=== PATIENT | male | born 1965 | race Caucasian/White ===

== ENCOUNTER 2019-08-28 16:27 | Inpatient (IN) | payer OTHER ==
[~2019-08-28] VITALS: Ht 175.3 cm; Wt 50.8 kg
[2019-08-28 16:36] VITALS: BP 121/88
[2019-08-28] MEDS ORDERED: ACETAMINOPHEN 650 MG SUPP RC ONE (16:55)
[2019-08-28] MEDS ORDERED: NACL 0.9% 1,000 ML IV ONE (16:55)
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
--- NOTE | 2019-08-28 17:30 | NUR ---
Staff RNs at bedside to start PIV on BUE, unsuccessful after multiple attempts. Per Dr Pro, vikash to start PIV on BLE.
[2019-08-28 18:01] LABS: BASOPHILS % (AUTO) 0.4 % (0.0-2.0); EOSINOPHILS # (AUTO) 0.1 K/uL (0-0.4); EOSINOPHILS % (AUTO) 0.5 % (0.0-4.0); HEMATOCRIT 33.1 % (36-52); HEMOGLOBIN 10.3 g/dL (12.0-18.0); LYMPHOCYTES # (AUTO) 0.6 K/uL (2.0-11.5); LYMPHOCYTES % (AUTO) 5.5 % (20.5-51.1); MEAN CORPUSCULAR HEMOGLOBIN 22 pg (27-31); MEAN CORPUSCULAR HGB CONC 31 g/dL (33-37); MEAN CORPUSCULAR VOLUME 71.9 fL (80-94); MONOCYTES # (AUTO) 0.5 K/uL (0.8-1.0); MONOCYTES % (AUTO) 4.5 % (1.7-9.3); NEUTROPHILS # (AUTO) 10.3 K/uL (1.8-7.7); NEUTROPHILS % (AUTO) 89.1 % (42.2-75.2); PLATELET COUNT (AUTO) 582 K/uL (140-450); RED BLOOD CELL COUNT(AUTO) 4.61 MIL/uL (4.20-6.10); RED CELL DISTRIBUTION WIDTH 21.6 % (11.6-13.7); WHITE BLOOD COUNT (AUTO) 11.6 K/uL (4.8-10.8)
[2019-08-28 18:06] LABS: APPEARANCE,URINE CLEAR (CLEAR); BILIRUBIN,URINE NEGATIVE (NEGATIVE); BLOOD, URINE 1+ (NEGATIVE); COLOR,URINE YELLOW (YELLOW); LEUKOCYTE ESTERASE ,URINE 1+ (NEGATIVE); NITRITE, URINE POSITIVE (NEGATIVE); PH,URINE 6.5 (5.0-9.0); UGLUCOSE NEGATIVE (NEGATIVE)
[2019-08-28 18:10] LABS: PROTHROMBIN TIME 10.4 secs (10.8-13.4)
[2019-08-28 18:18] LABS: ALBUMIN 2.6 g/dL (3.4-5.0); ANION GAP 12.6 (8-16); CARBON DIOXIDE 29.8 mmol/L (21-32); CREATININE 0.6 mg/dL (0.6-1.3); POTASSIUM 4.4 mmol/L (3.5-5.1); TOTAL BILIRUBIN 0.1 mg/dL (0.0-1.0)
[2019-08-28] MEDS ORDERED: ACET-2619 PO (18:19)
[2019-08-28] MEDS ORDERED: COROS OP (18:19)
[2019-08-28] MEDS ORDERED: [UNRECOGNIZED DRUG - CODE] PO (18:19)
[2019-08-28] MEDS ORDERED: ZINC220C28 PO (18:19)
[2019-08-28] MEDS ORDERED: BISA-213 RC (18:19)
[2019-08-28] MEDS ORDERED: ASPI-1822 PO (18:19)
[2019-08-28] MEDS ORDERED: MAGN400S60 PO (18:19)
[2019-08-28] MEDS ORDERED: ASCO500T45 PO (18:19)
[2019-08-28] MEDS ORDERED: DOCU-299 PO (18:19)
[2019-08-28] MEDS ORDERED: MULT-153 PO (18:19)
[2019-08-28] MEDS ORDERED: FAMO-90 PO (18:19)
[2019-08-28] MEDS ORDERED: LEVE500T9 PO (18:19)
[2019-08-28] MEDS ORDERED: MODA200T46 PO (18:19)
[2019-08-28] MEDS ORDERED: HYDR-5122 PO (18:19)
[2019-08-28] MEDS ORDERED: LOV40I SUBQ (18:19)
[2019-08-28] MEDS ORDERED: PIPERACILLIN/TAZOBACTAM 3.375 GM in DEXTROSE 5% 50 ML IV ONE (18:35)
[2019-08-28] MEDS ORDERED: PIPERACILLIN/TAZOBACTAM 3.375 GM VIAL IV ONE (18:35)
[2019-08-28] MEDS ORDERED: BISACODYL 10 MG SUPP RC PRN (18:55)
[2019-08-28] MEDS ORDERED: ONDANSETRON 4 MG/2 ML VIAL IVP PRN (19:00)
[2019-08-28] MEDS ORDERED: ACETAMINOPHEN 325 MG TAB PO PRN (19:00)
[2019-08-28] MEDS ORDERED: MORPHINE SULFATE 4 MG/ML SYR IVP PRN (19:00)
[2019-08-28] MEDS ORDERED: HYDROcodone/APAP 5/325 MG 1 TAB TAB PO PRN (19:00)
[2019-08-28] MEDS ORDERED: ALBUTEROL 0.083% 2.5 MG/3 ML NEBU INH PRN (19:00)
--- NOTE | 2019-08-28 19:09 | NUR ---
Pt laying in bed, rr even and unlabored. VS noted. Temp 99.9. All needs met.
--- NOTE | 2019-08-28 19:34 | NUR ---
Patient will be admitted to care of DR DENT. Admited to TELE. Will go to room 115. Belongings list completed. Report to DEVORAH PARSON
[2019-08-28 20:45] VITALS: BP 110/60
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
[2019-08-28] MEDS: NACL 0.9% 1,000 ML IV SCH (21:00)
[2019-08-28] MEDS ORDERED: cefTRIAXone 1,000 MG VIAL ONE (21:15)
[2019-08-28] MEDS: OSELTAMIVIR PHOSPHATE 75 MG CAP PO SCH (21:49)
[2019-08-28] MEDS: FAMOTIDINE 20 MG TAB PO SCH (21:49)
--- NOTE | 2019-08-28 22:00 | NUR ---
MADE ROUNDS , NO SIGNS OF ACUTE DISTRESS NOTED AT THIS TIME , CALL LIGHT WITHIN REACH , BED ALARM ON , WILL CONT. TO MONITOR . AFEBRILE.
[2019-08-29] VITALS: BP 127/80
--- NOTE | 2019-08-29 | NUR ---
MADE REDDY . MICAH O , ON FIRE INVESTIGATION LIEUTENANT. NO SIGNS OF ACUTE DISTRESS NOTED AT THIS TIME . WILL CONT. TO MONITOR.
--- NOTE | 2019-08-29 02:00 | NUR ---
SLEEPING - RESP. RISE AND FALL EQUALLY - WILL CONT. TO MONITOR.
[2019-08-29 04:00] VITALS: BP 120/70
--- NOTE | 2019-08-29 04:00 | NUR ---
MADE ROUNDS . NO SIGNS OF ACUTE DISTRESS NOTED . V/S WNL . WILL CONT. TO MONITOR.
--- NOTE | 2019-08-29 06:00 | NUR ---
MADE ROUNDS . RESP. EVEN AND UNLABORED . WILL CONT. TO MONITOR.
[2019-08-29 07:01] LABS: BASOPHILS % (AUTO) 0.9 % (0.0-2.0); EOSINOPHILS # (AUTO) 0.1 K/uL (0-0.4); EOSINOPHILS % (AUTO) 1.4 % (0.0-4.0); HEMATOCRIT 32.9 % (36-52); HEMOGLOBIN 10.5 g/dL (12.0-18.0); LYMPHOCYTES # (AUTO) 0.7 K/uL (2.0-11.5); LYMPHOCYTES % (AUTO) 16.2 % (20.5-51.1); MEAN CORPUSCULAR HEMOGLOBIN 23 pg (27-31); MEAN CORPUSCULAR HGB CONC 32 g/dL (33-37); MEAN CORPUSCULAR VOLUME 71.9 fL (80-94); MONOCYTES # (AUTO) 0.2 K/uL (0.8-1.0); MONOCYTES % (AUTO) 5.1 % (1.7-9.3); NEUTROPHILS # (AUTO) 3.2 K/uL (1.8-7.7); NEUTROPHILS % (AUTO) 76.4 % (42.2-75.2); PLATELET COUNT (AUTO) 516 K/uL (140-450); RED BLOOD CELL COUNT(AUTO) 4.57 MIL/uL (4.20-6.10); RED CELL DISTRIBUTION WIDTH 21.5 % (11.6-13.7); WHITE BLOOD COUNT (AUTO) 4.2 K/uL (4.8-10.8)
[2019-08-29 07:08] LABS: ANION GAP 10.6 (8-16); CARBON DIOXIDE 28.9 mmol/L (21-32); CREATININE 0.6 mg/dL (0.6-1.3); POTASSIUM 4.5 mmol/L (3.5-5.1)
--- NOTE | 2019-08-29 07:15 | NUR ---
RECEIVED REPORT FROM AIR DUCT MECHANIC NURSE. PT IS SLEEPING, NO SIGNS OF DISTRESS. PT HAS IV AT LEFT FOOT 20G WITH NS RUNNING AT 75ML/HR. PT HAS LOPEZ. PT IS FOR WOUND AND FNS CONSULT. CALL LIGHT WITHIN PT'S REACH. WILL CONTINUE TO MONITOR
--- NOTE | 2019-08-29 07:15 | NUR ---
ENDORSED TO AM SHIFT W/ STABLE CONDITION.
[2019-08-29 07:25] LABS: MAGNESIUM 1.7 mg/dL (1.8-2.4); PHOSPHORUS 2.4 mg/dL (2.5-4.9)
[2019-08-29 08:00] VITALS: BP 137/86
[2019-08-29] MEDS ORDERED: levETIRAcetam 500 MG TAB PO ONE (09:00)
[2019-08-29] MEDS ORDERED: NEOMYCIN OP SCH (09:00)
[2019-08-29] MEDS ORDERED: [UNRECOGNIZED DRUG - OTHER] OP SCH (09:00)
[2019-08-29] MEDS ORDERED: POLYMYXIN OP SCH (09:00)
--- NOTE | 2019-08-29 09:00 | NUR ---
CALLED DR. DENT'S OFFICE TO ASK FOR SWALLOW EVAL FOR THE PT. I OBSERVED THAT PT IS HAVING A HARD TIME SWALLOWING THE FOOD. NURSE WILL PAGE DR. DENT AND SHE SAID WILL CALL ME. WILL CONTINUE TO MONITOR
--- NOTE | 2019-08-29 09:45 | NUR ---
morning scheduled meds given. po meds crushed and mixed with apple sauce. pt tolerated well but needs constant reinforcement. will continue to monitor.
[2019-08-29] MEDS: FAMOTIDINE 20 MG TAB PO SCH ×2 (10:21→20:27)
[2019-08-29] MEDS: MULTIVITAMIN 1 TAB PO SCH (10:21)
[2019-08-29] MEDS: OSELTAMIVIR PHOSPHATE 75 MG CAP PO SCH ×2 (10:22→20:27)
[2019-08-29] MEDS: ASCORBIC ACID 500 MG TAB PO SCH (10:22)
[2019-08-29] MEDS: ZINC SULF 220 MG CAP PO SCH (10:22)
[2019-08-29] MEDS: ASPIRIN 81 MG TAB.CHEW PO SCH (10:22)
[2019-08-29] MEDS: ENOXAPARIN 40 MG/0.4 ML SYR SUBQ SCH (10:23)
[2019-08-29] MEDS: NACL 0.9% 1,000 ML IV SCH ×2 (10:25→21:38)
--- NOTE | 2019-08-29 10:34 | NUR ---
PATIENT HAS BEEN SCREENED AND CATEGORIZED HIGH NUTRITION RISK. PATIENT WILL BE SEEN WITHIN 1-2 DAYS OF ADMISSION. 08/29/19-08/30/[address]
[2019-08-29] MEDS ORDERED: levETIRAcetam 500 MG TAB PO SCH ×2 (11:15→13:15)
[2019-08-29 12:00] VITALS: BP 127/88
[2019-08-29] MEDS: POLYMYXIN OP SCH (12:00)
[2019-08-29] MEDS: NEOMYCIN OP SCH (12:00)
[2019-08-29] MEDS: [UNRECOGNIZED DRUG - OTHER] OP SCH (12:00)
--- NOTE | 2019-08-29 13:44 | NUR ---
*S.T. Bedside Swallow Eval completed* See report for details. Pt presents w/ severe oropharyngeal dysphagia c/b oral bolus holding and pooling on R side of oral cavity, severely delayed pharyngeal swallow response despite max verbal and tactile cues. R side pocketing observed after swallows. Pt is at high risk for aspiration. Recommend: 1) NPO; DC P.O. diet; consideration for long-term non-oral means of nutrition/hydration and meds 2) Crushed P.O. meds until a non-oral route is available. 3) Trial swallow tx 2x/1 week. 4) Aggressive oral care and aspiration precautions. D/w pt and BLANK Rocha at bedside. Time 5381-9696
--- NOTE | 2019-08-29 15:20 | NUR ---
08/29/19 INITIAL ASSESSMENT COMPLETED PLEASE REFER TO NUTRITION ASSESSMENT UNDER CARE ACTIVITY FOR ESTIMATED NUTRITIONAL NEEDS. 1. CONTINUE NPO STATUS MEDICALLY APPLICABLE 2. CONSIDER PT FOR ENTERAL NUTRITION W/ VITAL AF 1.2 @ 70 ML/HR. START RATE @ 10ML AND INCREASE BY 15 ML/HR Q4H. -THIS WILL PROVIDE 1680 ML IN VOLUME, 2016 KCALS, AND 126 GMS OF PROTEIN. THIS IS MEETING 92% OF PTS KCAL NEEDS AND 100% OF PTS PROTEIN NEEDS. 3. CONSIDER FREE WATER FLUSH @ [address] TO FOLLOW-UP 2-3 DAYS, HIGH RISK SUSHIL HERNANDEZ RD
--- NOTE | 2019-08-29 15:32 | NUR ---
Learning Development Specialist Note: Basic Screen: Yes High Risk DC Screen Yes Name: JOSE G OVERTON Home Tel: FATHER Relationship: [phone] Pre-Admission Living Arrangements: SNF Prior ADL Total/Dependent Current Home Health Name/Tel: N/A Current DME/02 Name/Tel: N/A Current Hospice Name/Tel: N/A Current Dialysis Name/Tel: N/A Healthcare Decision Maker: Next of Kin Other: FATHER Advance Directive No Physician Orders for Life Sustaining Treatment Form No Patient/Family Have Educational Needs No Discipline: Case Mgt/Social Svcs Tentative Discharge Plan/Destination: SNF/ECF Will require assistance post discharge: No Referred to Water Well Driller: No Tentative Discharge Plan Summary: Patient is a 53-year-old male admitted for UTI. Patient has PMHX of TBI, skull fracture, anemia, seizures. Patient was admitted from [facility]. SW contacted Ai - Admissions [phone]. Per Ai patient is skilled and is currently on a bed hold. Ai reported that patienthas no advanced healthcare directive but patient's healthcare decision maker is Jose G Overton [phone]. Ai stated that patient is bed bound, needs total assistance, and is not alert/oriented at baseline. Tentative discharge plan is for patient to return to [facility]. No further needs identified. Signature: JOSE DANIEL Choudhury Date: Aug 29, 2019 Time: 15:31
[2019-08-29 16:00] VITALS: BP 110/78
--- NOTE | 2019-08-29 16:00 | NUR ---
CALLED DR. DENT TO INFORM REGARDING SWALLOW EVAL AND FNS RECOMMENDATION. HE SAID TO CONTINUE WITH PUREE DIET AND THICK LIQUIDS.
[2019-08-29] MEDS ORDERED: levETIRAcetam 100 MG/ML ORASYR PO SCH (16:07)
--- NOTE | 2019-08-29 17:00 | NUR ---
CALLED DR. DENT REGARDING KEPPRA TAB THAT CAN'T BE CRUSHED. DR. DENT CHANGED IT TO IV FORM. INFORMED PHARMACY WELL.
--- NOTE | 2019-08-29 18:22 | NUR ---
FREQUENT ROUNDING DONE. PT IS AWAKE, NO SIGNS OF DISTRESS.
--- NOTE | 2019-08-29 18:50 | NUR ---
SCHEDULED MEDS GIVEN. WILL CONTINUE TO MONITOR
--- NOTE | 2019-08-29 18:51 | NUR ---
REPORT GIVEN TO LEAD RAMP SERVICE MAN NURSE FOR CONTINUITY OF CARE. PT IS STABLE. CALL LIGHT WITHIN PT'S REACH. WILL CONTINUE
--- NOTE | 2019-08-29 19:21 | NUR ---
RECEIVED BEDSIDE REPORT FROM DAY SHIFT NURSE, SARY. PT IS SLEEPING, NO SIGNS OF DISTRESS. PT HAS IV AT LEFT FOOT 20G, PATENT, INTACT AND ASYMPTOMATIC. PT HAS LOPEZ. PT IS FOR WOUND AND FNS CONSULT. BOARD UPDATED, BED IN LOW POSITION, CALL LIGHT WITHIN PT'S REACH. WILL CONTINUE TO MONITOR
[2019-08-29 20:00] VITALS: BP 124/86
[2019-08-29] MEDS: levETIRAcetam 500 MG in NACL 0.9% 100 ML IV SCH (20:26)
--- NOTE | 2019-08-29 20:26 | NUR ---
GIVEN KEPPRA, PEPCID, AND TAMIFLU MD ORDERED. PT TOLERATED WELL.
--- NOTE | 2019-08-29 22:05 | NUR ---
PT AWAKE, LYING IN BED, WATCHING TV. NO ACUTE DISTRESS NOTED.
[2019-08-30] VITALS: BP 122/71
--- NOTE | 2019-08-30 | NUR ---
VS WITHIN PT'S BASELINE. NO ACUTE DISTRESS NOTED.
--- NOTE | 2019-08-30 02:39 | NUR ---
PT SLEEPING IN BED COMFORTABLY. NO ACUTE DISTRESS NOTED.
[2019-08-30 04:00] VITALS: BP 159/96
--- NOTE | 2019-08-30 04:02 | NUR ---
VS CHECKED, WITHIN PT'S BASELINE, WILL CONTINUE TO MONITOR.
--- NOTE | 2019-08-30 06:40 | NUR ---
PT IN STABLE CONDITION, WILL ENDORSE PT TO DAY SHIFT NURSE FOR CONTINUOUS CARE.
--- NOTE | 2019-08-30 07:23 | NUR ---
RECEIVED REPORT FROM TUBING MACHINE OPERATOR NURSE. PT IS IN BED. NO DISTRESS NOTED AT HIS TIME. LEFT EYE IS DILATED. PT RESPONDS TO NAME. WILL CONTINUE TO MONITOR. CALL LIGHT IN REACH.
[2019-08-30 07:34] LABS: BASOPHILS # (AUTO) 0.1 K/uL (0.00-0.22); BASOPHILS % (AUTO) 3.9 % (0.0-2.0); EOSINOPHILS # (AUTO) 0.1 K/uL (0-0.4); EOSINOPHILS % (AUTO) 2.2 % (0.0-4.0); HEMATOCRIT 35.9 % (36-52); HEMOGLOBIN 11.2 g/dL (12.0-18.0); LYMPHOCYTES # (AUTO) 0.6 K/uL (2.0-11.5); LYMPHOCYTES % (AUTO) 21.1 % (20.5-51.1); MEAN CORPUSCULAR HEMOGLOBIN 23 pg (27-31); MEAN CORPUSCULAR HGB CONC 31 g/dL (33-37); MEAN CORPUSCULAR VOLUME 72.4 fL (80-94); MONOCYTES # (AUTO) 0.2 K/uL (0.8-1.0); NEUTROPHILS % (AUTO) 66.8 % (42.2-75.2); PLATELET COUNT (AUTO) 403 K/uL (140-450); RED BLOOD CELL COUNT(AUTO) 4.96 MIL/uL (4.20-6.10); RED CELL DISTRIBUTION WIDTH 22.1 % (11.6-13.7)
[2019-08-30 07:40] LABS: ANION GAP 13.7 (8-16); CARBON DIOXIDE 24.9 mmol/L (21-32); CREATININE 0.5 mg/dL (0.6-1.3); POTASSIUM 4.6 mmol/L (3.5-5.1)
[2019-08-30] MEDS ORDERED: BISACODYL 10 MG SUPP RC PRN (07:56)
[2019-08-30 08:00] VITALS: BP 162/96
[2019-08-30] MEDS: OSELTAMIVIR PHOSPHATE 75 MG CAP PO SCH ×2 (08:50→21:02)
[2019-08-30] MEDS: ZINC SULF 220 MG CAP PO SCH (08:50)
[2019-08-30] MEDS: levETIRAcetam 500 MG in NACL 0.9% 100 ML IV SCH ×2 (08:50→22:14)
[2019-08-30] MEDS: MULTIVITAMIN 1 TAB PO SCH (08:51)
[2019-08-30] MEDS: FAMOTIDINE 20 MG TAB PO SCH ×2 (08:51→21:02)
[2019-08-30] MEDS: DOCUSATE SODIUM 100 MG GELCAP PO PRN ×2 (08:51→21:03)
[2019-08-30] MEDS: ASPIRIN 81 MG TAB.CHEW PO SCH (08:51)
[2019-08-30] MEDS: ENOXAPARIN 40 MG/0.4 ML SYR SUBQ SCH (08:54)
[2019-08-30] MEDS ORDERED: levETIRAcetam 500 MG TAB PO SCH (09:00)
[2019-08-30] MEDS: ASCORBIC ACID 500 MG TAB PO SCH (09:06)
--- NOTE | 2019-08-30 09:24 | NUR ---
CRUSHED MEDICATION AND ADDED THICK LIQUID TO MEDS TO SWALLOW. HOWEVER PT IS HOLDING MEDICATION MOUTH FOR LONG TIME BEFORE SWALLOWING. PT WAS GIVEN HALF A TEA SPOON OF MEDS IN THICK LIQUID EACH TIME. WILL CONTINUE TO MONITOR. CALL LIGHT IN REACH.
[2019-08-30 09:26] LABS: MAGNESIUM 1.8 mg/dL (1.8-2.4); PHOSPHORUS 3.2 mg/dL (2.5-4.9)
--- NOTE | 2019-08-30 11:00 | NUR ---
DR. DENT CAME TO SEE PT. NOTIFIED DR. DENT AGAIN REGARDING THE SPEECH THERAPIST AND FNS RECOMMENDATION. PER DR. DENT, PT IS SICK AND THAT IT WILL TAKE DAYS TO GET HIM BACK TO HIS BASE LINE WHICH HE CAN TOLERATE THE PUREED DIET. PER DR. DENT, HE WILL DISCHARGE [place] [facility] [place] [facility] NURSE NOTIFIED. [facility] BED CANCELLED.
--- NOTE | 2019-08-30 11:30 | NUR ---
PT IS IN BED AT THIS TIME. PT IS RESPONSIVE. WOUND CARE NURSE DID ASSESSMENT. WOUND CARE PROTOCOL IN PLACE. WILL CONTINUE TO MONITOR. CALL LIGHT IN REACH.
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
[2019-08-30] MEDS ORDERED: ROC1PM IV (11:51)
[2019-08-30] MEDS ORDERED: VANC1PLA7 IV (11:51)
[2019-08-30 12:00] VITALS: BP 153/97
--- NOTE | 2019-08-30 13:04 | NUR ---
*S.T. TREATMENT NOTE* S: Pt seen at bedside w/ RN Tracie present. This clinician read notes from nsg re: Dr. Storey's decision to keep pt on P.O. diet, despite ICT PROGRAMMER recommendations. Pt awake, alert. Unable to verbalize or follow commands, but visually tracked clinician. O/A: P.O. trials of gelatin x 2. Pt continues to demonstrate severe oropharyngeal dysphagia due to bolus holding in oral cavity w/ pooling on R side, delayed pharyngeal swallow response w/ max cueing. P: Recommendation for NPO status with non-oral means of nutrition/hydration/meds. Pt has current order for discharge/transfer back to SNF ([facility]) w/ pureed diet, thickened liquid diet. Defer to PCP for follow up and further eval/tx w/ ICT PROGRAMMER at SNF. Time [id number]
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
--- NOTE | 2019-08-30 13:30 | NUR ---
PT'S DISCHARGE WAS CANCELLED. PER CM PT WILL HAVE A PROCEDURE FOR G TUBE PLACEMENT. CONSENT OBTAINED FROM FATHER OVER PHONE. PT IS AWAKE AND RESPONSIVE. WOUND CARE DONE. WILL CONTINUE TO MONITOR. CALL LIGHT IN REACH.
[2019-08-30] MEDS: NACL 0.9% 1,000 ML IV SCH (14:25)
[2019-08-30] MEDS: MUPIROCIN CA NASAL 2% 1GM TUBE NS SCH (14:25)
[2019-08-30] MEDS: POLYMYXIN OP SCH (14:26)
[2019-08-30] MEDS: CHLORHEXADINE GLUC 2% CLOTH TP SCH (14:26)
[2019-08-30] MEDS: NEOMYCIN OP SCH (14:26)
[2019-08-30] MEDS: [UNRECOGNIZED DRUG - OTHER] OP SCH (14:26)
[2019-08-30] MEDS: ALGINATE ROPE MC SCH (14:27)
[2019-08-30] MEDS: GAUZE TP SCH (14:27)
[2019-08-30 16:00] VITALS: BP 117/90
--- NOTE | 2019-08-30 18:05 | NUR ---
PT IS RESTING IN BED. PT AWAKE AND RESPONSIVE. NO DISTRESS NOTED. NO COMPLAINS OF PAIN. CALL LIGHT IN REACH.
--- NOTE | 2019-08-30 19:18 | NUR ---
SHIFT REPORT GIVEN TO PRACTICE LEAD NURSE. PT IS IN STABLE CONDITION. CALL LIGHT IN REACH.
--- NOTE | 2019-08-30 19:18 | NUR ---
RECIEVED PT AAOX1 , NON VERBAL - RESPONDING BY EYES CONTACT WHEN CALLING HIS NAME . NID - RA - O2 SAT - WNL , W/ FC DRAINING CLEAR U.O , WITH OPEN WOUND ON SACRAL AREA , AND LEFT HEEL - VISITED ALREADY BY WOUND CONSULT - DRESSING NEWLY CHANGED . IV SITE INTACT AND PATENT . NPO EXCEPTS MEDS - ON SAP - FOR PLACEMENT OF G TUBE DUE TO POOR ORAL INTAKE - T.O CONSENT FROM PT'S FATHER SECURED BY AM SHIFT NURSE , POC DISCUSSED BUT POOR UNDERSTANDING DUE TO MENTAL STATUS , ON SAFETY / FALL PRECAUTION PROTOCOL - BED ALARM ON . WILL CONT. TO MONITOR.
[2019-08-30 20:00] VITALS: BP 140/87
--- NOTE | 2019-08-30 22:00 | NUR ---
MADE ROUNDS , RESP. EVEN AND UNLABORED , WILL CONT. TO MONITOR.
[2019-08-31] VITALS: BP 142/90
--- NOTE | 2019-08-31 | NUR ---
MADE ROUNDS , NO SIGNS OF ACUTE DISTRESS NOTED AT THIS TIME , WILL CONT. TO MONITOR.
--- NOTE | 2019-08-31 02:00 | NUR ---
SLEEPING . CHEST RISE AND FALL EQUALLY - WILL CONT. TO MONITOR.
[2019-08-31] MEDS: NACL 0.9% 1,000 ML IV SCH (03:00)
[2019-08-31 04:00] VITALS: BP 140/86
--- NOTE | 2019-08-31 04:00 | NUR ---
MADE ROUNDS , O2 SAT WNL , NO SIGNS OF ACUTE DISTRESS NOTED AT THIS TIME - ON MECHANICAL EQUIPMENT SALES ENGINEER -SR
--- NOTE | 2019-08-31 05:00 | NUR ---
HGT CHECKED 72 - REFERRED TO DOCTOR INFORMATION TECHNOLOGY DATA ANALYST , MADE T.O AND CARRIED OUT , WILL CONT. TO MONITOR. FULLY AWAKE AND GOOD MUSCLE TONE.
[2019-08-31] MEDS ORDERED: DEXT 5% /NACL 0.9% 1,000 ML IV SCH (05:45)
--- NOTE | 2019-08-31 06:00 | NUR ---
MADE ROUNDS , NO SIGNS OF ACUTE DISTRESS NOTED AT THIS TIME . WILL CONT. TO MONITOR. 02 SAT 93.
[2019-08-31 06:51] LABS: BASOPHILS # (AUTO) 0.1 K/uL (0.00-0.22); BASOPHILS % (AUTO) 0.7 % (0.0-2.0); EOSINOPHILS # (AUTO) 0.1 K/uL (0-0.4); EOSINOPHILS % (AUTO) 1.2 % (0.0-4.0); HEMATOCRIT 31.7 % (36-52); HEMOGLOBIN 10.2 g/dL (12.0-18.0); LYMPHOCYTES # (AUTO) 0.7 K/uL (2.0-11.5); LYMPHOCYTES % (AUTO) 9.2 % (20.5-51.1); MEAN CORPUSCULAR HEMOGLOBIN 23 pg (27-31); MEAN CORPUSCULAR HGB CONC 32 g/dL (33-37); MEAN CORPUSCULAR VOLUME 72.3 fL (80-94); MONOCYTES # (AUTO) 0.3 K/uL (0.8-1.0); MONOCYTES % (AUTO) 3.6 % (1.7-9.3); NEUTROPHILS # (AUTO) 6.3 K/uL (1.8-7.7); NEUTROPHILS % (AUTO) 85.3 % (42.2-75.2); PLATELET COUNT (AUTO) 555 K/uL (140-450); RED BLOOD CELL COUNT(AUTO) 4.38 MIL/uL (4.20-6.10); RED CELL DISTRIBUTION WIDTH 22.1 % (11.6-13.7); WHITE BLOOD COUNT (AUTO) 7.3 K/uL (4.8-10.8)
[2019-08-31 07:07] LABS: ANION GAP 8.9 (8-16); CARBON DIOXIDE 29.7 mmol/L (21-32); CREATININE 0.5 mg/dL (0.6-1.3); POTASSIUM 3.6 mmol/L (3.5-5.1)
[2019-08-31 07:10] LABS: MAGNESIUM 1.6 mg/dL (1.8-2.4); PHOSPHORUS 3.2 mg/dL (2.5-4.9)
--- NOTE | 2019-08-31 07:13 | NUR ---
ENDORSED TO AM SHIFT FOR CONT. OF CARE - PT STABLE - LATEST TRACING - SR.
--- NOTE | 2019-08-31 07:15 | NUR ---
PATIENT LYING IN BED SUPINE. ALERT AND ORIENTED x1. APHASIC. RESPIRATIONS EVEN AND UNLABORED, BREATHING TO ROOM AIR. IV SITE DRY AND INTACT. IV RUNNING PER MD ORDERS. NO DISTRESS NOTED. LOPEZ CATHETER IN PLACE. BED IN LOW POSITION. REVIEWED PLAN OF CARE WITH PATIENT. WILL CONTINUE TO MONITOR.
[2019-08-31 08:00] VITALS: BP 138/89
--- NOTE | 2019-08-31 09:24 | NUR ---
08/31/19 RD FOLLOW UP COMPLETED PLEASE REFER TO NUTRITION PROGRESS NOTE UNDER CARE ACTIVITY FOR ESTIMATED NUTRITION NEEDS. RD RECOMMENDATIONS: 1. CONTINUE NPO STATUS MEDICALLY APPLICABLE 2. CONSIDER PT FOR ENTERAL NUTRITION W/ VITAL AF 1.2 @ 70 ML/HR. START RATE @ 10ML AND INCREASE BY 15 ML/HR Q4H. -THIS WILL PROVIDE 1680 ML IN VOLUME, 2016 KCALS, AND 126 GMS OF PROTEIN. THIS IS MEETING 92% OF PTS KCAL NEEDS AND 100% OF PTS PROTEIN NEEDS. 3. CONSIDER FREE WATER FLUSH @ [address] TO FOLLOW-UP 2-3 DAYS, HIGH RISK MONIQUE EDGAR, MS, RDN
[2019-08-31] MEDS: levETIRAcetam 500 MG in NACL 0.9% 100 ML IV SCH ×2 (09:43→21:37)
[2019-08-31] MEDS: FAMOTIDINE 20 MG TAB PO SCH ×2 (09:44→21:07)
[2019-08-31] MEDS: OSELTAMIVIR PHOSPHATE 75 MG CAP PO SCH ×2 (09:45→21:07)
[2019-08-31] MEDS: ZINC SULF 220 MG CAP PO SCH (09:45)
[2019-08-31] MEDS: MULTIVITAMIN 1 TAB PO SCH (09:45)
[2019-08-31] MEDS: ASCORBIC ACID 500 MG TAB PO SCH (09:46)
[2019-08-31] MEDS: DOCUSATE SODIUM 100 MG GELCAP PO PRN ×2 (09:48→21:07)
[2019-08-31] MEDS: MIDAZOLAM 2 MG/2 ML VIAL ONE ×2 (09:52→10:25)
[2019-08-31] MEDS: fentaNYL 0.05 MG/ML VIAL ONE ×2 (09:52→10:25)
--- NOTE | 2019-08-31 09:58 | NUR ---
SCHEDULED MEDS DUE, GIVEN. WILL CONTINUE TO MONITOR.
--- NOTE | 2019-08-31 10:15 | NUR ---
OR NURSES AT BEDSIDE TO TAKE PATIENT FOR PEG TUBE PLACEMENT. WILL CONTINUE TO MONITOR WHEN PATIENT RETURNS.
[2019-08-31 12:00] VITALS: BP 105/63
[2019-08-31] MEDS: CHLORHEXADINE GLUC 2% CLOTH TP SCH (12:00)
[2019-08-31] MEDS: NEOMYCIN OP SCH (13:40)
[2019-08-31] MEDS: [UNRECOGNIZED DRUG - OTHER] OP SCH (13:40)
[2019-08-31] MEDS: POLYMYXIN OP SCH (13:40)
[2019-08-31] MEDS: MUPIROCIN CA NASAL 2% 1GM TUBE NS SCH (13:41)
[2019-08-31] MEDS: ALGINATE ROPE MC SCH (13:42)
[2019-08-31] MEDS: GAUZE TP SCH (13:43)
--- NOTE | 2019-08-31 13:47 | NUR ---
SCHEDULED MEDS DUE GIVEN. WILL CONTINUE TO MONITOR.
[2019-08-31 16:00] VITALS: BP 141/84
--- NOTE | 2019-08-31 16:26 | NUR ---
PT SEEN BY DR. YANES. PER DR. YANES, HE WANTS THE PT TO BE DISCHARGED BACK TO SNF TOMORROW, NOT TODAY AND MAKE SURE PT TOLERATES G-TUBE FEEDING WELL.
[2019-08-31] MEDS ORDERED: MAG SULF 2000 MG/WATER PREMIX 50 ML IV ONE (18:00)
--- NOTE | 2019-08-31 18:47 | NUR ---
PATIENT'S SCHEDULED MEDS GIVEN. WILL CONTINUE TO MONITOR.
--- NOTE | 2019-08-31 19:20 | NUR ---
GAVE REPORT TO LINUX SECURITY ADMINISTRATOR NURSE. PATIENT IN STABLE CONDITION.
--- NOTE | 2019-08-31 19:22 | NUR ---
RECEIVED PT FROM AM SHIFT RNNIRMAL. PT AAOX1 , NON VERBAL, W/ FC DRAINING CLEAR URINE OUTPUT, PATIENT LEFT HAND STRONG AND GRABBING ATTACHMENTS, WITH PEG TUBE INSERTED TODAY THIS AM, PATENT W/ GTUBE FEEDING RUNNING AT 20 ML/ HR H2O FLUSH 50 Q 4 HRS, TO ADJUST THE FEEDING RATE AFTER 8 HRS W/ GOAL OF 30 ML/HR. WITH OPEN WOUND ON SACRAL AREA , AND LEFT HEEL , DRESSINGS IN PLACE. IV SITE INTACT AND PATENT WITH D5NS AT 5ML/HR. ON LEFT FOOT G 20, ON SAFETY / FALL PRECAUTION PROTOCOL . BED ALARM ON . WILL CONT. TO MONITOR.
[2019-08-31 20:00] VITALS: BP 140/85
--- NOTE | 2019-08-31 21:07 | NUR ---
CHECKED ON TF RESIDUAL 3 CC, PT TOLERATING FEEDING
--- NOTE | 2019-08-31 22:05 | NUR ---
PATIENT TURNED Q 2 AND PLACED PILLOWS TO OFFLOAD PRESSURE, WOUNDS NOT SOILED, WILL CONTINUE TO MONITOR
[2019-09-01] VITALS: BP 147/89
--- NOTE | 2019-09-01 01:00 | NUR ---
PT TURNED TO ANOTHER SIDE; AND OFFLOADED W/ PILLOWS. WOUND ASSESSMENT DONE; PT'S WOUNDS NOT SOILED, WILL CHANGE NEEDED. PAINTED THE R 1ST METATARSAL WITH BETADINE (BID)
--- NOTE | 2019-09-01 02:00 | NUR ---
INCREASED THE TF= 30 ML/HR(GOAL), EILL MONITOR IF PATIENT TOLERATING THE TF.
[2019-09-01 04:00] VITALS: BP 112/77
--- NOTE | 2019-09-01 04:00 | NUR ---
PT TURNED TO SIDE AND OFF LOADED PRESSURE AREAS. NO BM NOTED
--- NOTE | 2019-09-01 06:46 | NUR ---
PT AWAKE, ALERT ORIENTED X 1, FLACC 0. PT IN STABLE CONDITION. WILL ENDORSE TO NEXT SHIFT.
--- NOTE | 2019-09-01 07:15 | NUR ---
RECEIVED REPORT FROM NIGHT NURSE. PATIENT LYING IN BED SUPINE. AWAKE AND ORIENTED TIMES 1, TO PERSON. APHASIC. RESPIRATIONS EVEN AND UNLABORED, BREATHING TO ROOM AIR. NO DISTRESS NOTED. IV SITE PATENT AND INTACT. LOPEZ CATHETER IN PLACE. HAS SACRAL WOUND AND RIGHT HEEL WOUND. DRESSINGS DRY AND INTACT. G TUBE IN PLACE, G TUBE FEEDING IS RUNNING ACCORDING TO MD ORDERS. REVIEWED PLAN OF CARE WITH PATIENT, UNABLE TO VERBALIZE UNDERSTANDING. SAFETY MEASURES IN PLACE. CALL LIGHT IN REACH, BED IN LOW POSITION. WILL CONTINUE TO MONITOR.
[2019-09-01 07:42] LABS: BASOPHILS # (AUTO) 0.1 K/uL (0.00-0.22); BASOPHILS % (AUTO) 1.4 % (0.0-2.0); EOSINOPHILS # (AUTO) 0.3 K/uL (0-0.4); EOSINOPHILS % (AUTO) 6.8 % (0.0-4.0); HEMATOCRIT 26.7 % (36-52); HEMOGLOBIN 8.6 g/dL (12.0-18.0); LYMPHOCYTES # (AUTO) 0.7 K/uL (2.0-11.5); LYMPHOCYTES % (AUTO) 17.8 % (20.5-51.1); MEAN CORPUSCULAR HEMOGLOBIN 23 pg (27-31); MEAN CORPUSCULAR HGB CONC 32 g/dL (33-37); MEAN CORPUSCULAR VOLUME 70.4 fL (80-94); MONOCYTES # (AUTO) 0.3 K/uL (0.8-1.0); MONOCYTES % (AUTO) 6.6 % (1.7-9.3); NEUTROPHILS # (AUTO) 2.6 K/uL (1.8-7.7); NEUTROPHILS % (AUTO) 67.4 % (42.2-75.2); PLATELET COUNT (AUTO) 562 K/uL (140-450); RED BLOOD CELL COUNT(AUTO) 3.79 MIL/uL (4.20-6.10); RED CELL DISTRIBUTION WIDTH 21.4 % (11.6-13.7); WHITE BLOOD COUNT (AUTO) 3.9 K/uL (4.8-10.8)
[2019-09-01 07:47] LABS: ANION GAP 8.9 (8-16); CARBON DIOXIDE 26.7 mmol/L (21-32); CREATININE 0.5 mg/dL (0.6-1.3); POTASSIUM 3.6 mmol/L (3.5-5.1)
[2019-09-01 07:50] LABS: MAGNESIUM 1.8 mg/dL (1.8-2.4); PHOSPHORUS 2.9 mg/dL (2.5-4.9)
[2019-09-01 08:00] VITALS: BP 155/104
[2019-09-01] MEDS: FAMOTIDINE 20 MG TAB PO SCH (10:31)
[2019-09-01] MEDS: MULTIVITAMIN 1 TAB PO SCH (10:32)
[2019-09-01] MEDS: OSELTAMIVIR PHOSPHATE 75 MG CAP PO SCH (10:32)
[2019-09-01] MEDS: ASCORBIC ACID 500 MG TAB PO SCH (10:32)
[2019-09-01] MEDS: ZINC SULF 220 MG CAP PO SCH (10:33)
[2019-09-01] MEDS: levETIRAcetam 500 MG in NACL 0.9% 100 ML IV SCH (10:40)
--- NOTE | 2019-09-01 10:54 | NUR ---
PT'S. SCHEDULED MEDS GIVEN. WILL CONTINUE TO MONITOR.
[2019-09-01 12:00] VITALS: BP 141/65
[2019-09-01] MEDS: MUPIROCIN CA NASAL 2% 1GM TUBE NS SCH (12:52)
[2019-09-01] MEDS: CHLORHEXADINE GLUC 2% CLOTH TP SCH (12:53)
[2019-09-01] MEDS: NEOMYCIN OP SCH (12:53)
[2019-09-01] MEDS: [UNRECOGNIZED DRUG - OTHER] OP SCH (12:53)
[2019-09-01] MEDS: POLYMYXIN OP SCH (12:53)
[2019-09-01] MEDS: ALGINATE ROPE MC SCH (12:54)
[2019-09-01] MEDS: GAUZE TP SCH (12:54)
--- NOTE | 2019-09-01 13:00 | NUR ---
PATIENT LYING DOWN IN BED WATCHING TV. NO DISTRESS NOTED. FLACC 0. CONDITION UNCHANGED. WILL CONTINUE TO MONITOR.
--- NOTE | 2019-09-01 16:35 | NUR ---
[facility] ON UNIT READY TO TAKE PATIENT TO [facility]. TRANSFER INSTRUCTIONS PROVIDED TO PATIENT. UNABLE TO COMPREHEND. CALLED [facility] AND GAVE REPORT TO BLANK AUGUSTE. ANSWERED ALL OF RN'S QUESTIONS REGARDING TRANSFER. MOLINA VERBALIZED COMPLETE UNDERSTANDING. NOTIFIED HER THAT TRANSPORTERS WERE ALREADY ON THE UNIT DESPITE THE ESTIMATE SCHEDULED TIME OF 1630. RN VERBALIZED UNDERSTANDING AND AWAITING FOR PATIENT'S ARRIVAL. GAVE REPORT TO [facility]. PATIENT TRANSFERRED BACK TO [facility] AT THIS TIME IN STABLE CONDITION VIA [facility].
== END 2019-09-01 16:35 | DRG 720 ==
LOC: MED 16:27 → MMU 19:01 → MTU 19:40
PROVIDERS: ADMIT Internal Medicine Pulmonary Disease; ATTEND Internal Medicine Pulmonary Disease
PROC: 0DH63UZ Insertion of Feeding Device into Stomach, Percutaneous Approach (ICD-10-PCS; principal; 2019-08-31 10:30)
DX: A41.9 Sepsis, unspecified organism (principal); G93.40 Encephalopathy, unspecified; E44.0 Moderate protein-calorie malnutrition; N39.0 Urinary tract infection, site not specified; Z68.1 Body mass index [BMI] 19.9 or less, adult; J10.1 Influenza due to other identified influenza virus with other respiratory manifestations; G40.909 Epilepsy, unspecified, not intractable, without status epilepticus; D64.9 Anemia, unspecified; Z87.820 Personal history of traumatic brain injury
CPT/HCPCS: 36415; 51702; 71045; 80048; 80053; 81001; 82140; 82550; 82553; 82948; 83605; 83735; 84100; 84484; 85025; 85610; 85730; 87040; 87081; 87086; 87186; 87804; 92526; 92610; 93005; 96365; 99285; A4649; J0696; J1650; J1953; J2250; J2543; J3010; J3475; J7030; J7042; J7060; Q0092

== ENCOUNTER 2019-09-02 18:07 | Emergency (ER) | payer OTHER ==
[~2019-09-02] VITALS: Ht 175.3 cm; Wt 50.8 kg
[2019-09-02 18:07] VITALS: BP 154/100
[~2019-09-02 18:07] MED LIST: ACET-2619 PO; ASCO500T45 PO; ASPI-1822 PO; BISA-213 RC; COROS OP; DOCU-299 PO; FAMO-90 PO; HYDR-5122 PO; LEVE500T9 PO; LOV40I SUBQ; MAGN400S60 PO; MODA200T46 PO; MULT-153 PO; ROC1PM IV; VANC1PLA7 IV; ZINC220C28 PO; [UNRECOGNIZED DRUG - CODE] PO
--- NOTE | 2019-09-02 18:07 | NUR ---
BROUGHT IN BY AMBULANCE FROM [facility] WITH C/O BLEEDING SACRAL PRESSURE ULCER. NO ACTIVE BLEEDING AT THIS TIME.PATIENT NON VERBAL GCS 6 WITH PEG TUBE , IV ACCESS AT LEFT FOOT G #20, PATENT
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
--- NOTE | 2019-09-02 19:20 | NUR ---
REPORT RECIVED FROM CLEMENCIA PARSON. CONTINUATION OF CARE.
--- NOTE | 2019-09-02 19:22 | NUR ---
Pt report given to lang العراقي. Transfer of care at this time.
--- NOTE | 2019-09-02 19:29 | NUR ---
DR RAMOS AT BEDSIDE.
--- NOTE | 2019-09-02 19:45 | NUR ---
LAB AT BEDSIDE.
--- NOTE | 2019-09-02 20:00 | NUR ---
PT RESTING IN BED EYES OPEN. RESPIRATIONS ARE EVEN AND UNLABROED. SKIN IS WARM AND DRY TO TOUCH. PT RESPONDS TO VERBAL STIMULI BY TRACKING WITH EYES. VSS. SEIZURE PRECAUTIONS IN PLACE. BED LOCKED AN IN LOWEST POSITON.
--- NOTE | 2019-09-02 20:05 | NUR ---
PT REPOSTIONED IN BED FOR COMFORT.
[2019-09-02 21:02] LABS: CARBON DIOXIDE 28.6 mmol/L (21-32); CREATININE 0.4 mg/dL (0.6-1.3); POTASSIUM 3.6 mmol/L (3.5-5.1)
[2019-09-02 21:18] LABS: EOSINOPHILS # (AUTO) 0.1 K/uL (0-0.4); EOSINOPHILS % (AUTO) 2.5 % (0.0-4.0); HEMATOCRIT 25.3 % (36-52); LYMPHOCYTES # (AUTO) 0.7 K/uL (2.0-11.5); LYMPHOCYTES % (AUTO) 15.7 % (20.5-51.1); MEAN CORPUSCULAR HEMOGLOBIN 23 pg (27-31); MEAN CORPUSCULAR HGB CONC 31 g/dL (33-37); MONOCYTES # (AUTO) 0.4 K/uL (0.8-1.0); MONOCYTES % (AUTO) 8.2 % (1.7-9.3); NEUTROPHILS # (AUTO) 3.2 K/uL (1.8-7.7); NEUTROPHILS % (AUTO) 72.6 % (42.2-75.2); PLATELET COUNT (AUTO) 583 K/uL (140-450); RED BLOOD CELL COUNT(AUTO) 3.47 MIL/uL (4.20-6.10); RED CELL DISTRIBUTION WIDTH 21.5 % (11.6-13.7); WHITE BLOOD COUNT (AUTO) 4.4 K/uL (4.8-10.8)
--- NOTE | 2019-09-02 21:34 | NUR ---
PT RESTING IN BED EYES CLOSED. RESPIRATIONS ARE EVEN AND UNLABROED. SKIN IS WARM AND DRY TO TOUCH. PT RESPONDS TO VERBAL STIMULI BY TRACKING WITH EYES. VSS. SEIZURE PRECAUTIONS IN PLACE. PT REPOSITIONED IN BED FOR COMFORT. PT SKIN CHECKED. SKIN IS CLEAN AND DRY. BED LOCKED AN IN LOWEST POSITON.
--- NOTE | 2019-09-02 22:16 | NUR ---
PT PERINEAL CARE DONE. PT HAS SMALL, SOFT BM. SKIN LEFT CLEAN AND DRY. PT REPOSITIONED IN BED FOR COMFORT. VSS. RESPIRATIONS ARE EVEN AND UNLABORED. SEIZURE PRECAUTIONS IN PLACE. PT BED LOCKED AND IN LOWEST POSTION.
[2019-09-02 23:11] VITALS: BP 126/70
--- NOTE | 2019-09-02 23:12 | NUR ---
Patient discharged with v/s stable. Written and verbal after care instructions given and explained. Patient non-verbal. Transferred back to [facility] by [facility] team. Report given to [facility] transport team. Report called to [facility] for update on patient status.
== END 2019-09-02 23:11 ==
LOC: MED 18:07
DX: R58 Hemorrhage, not elsewhere classified (principal); L98.428 Non-pressure chronic ulcer of back with other specified severity; D64.9 Anemia, unspecified; Z86.73 Personal history of transient ischemic attack (TIA), and cerebral infarction without residual deficits; Z79.82 Long term (current) use of aspirin; Z79.899 Other long term (current) drug therapy
CPT/HCPCS: 36415; 80048; 85025; 99285

== ENCOUNTER 2019-09-09 14:51 | Inpatient (IN) | payer OTHER ==
[~2019-09-09] VITALS: Ht 170.2 cm; Wt 74.8 kg
[2019-09-09 14:54] VITALS: BP 147/96
--- NOTE | 2019-09-09 15:07 | NUR ---
53 Y/O M C/C ABNORMAL LABS FROM [facility], PT BRIGIDO. PER FACILTY NOTED ABNORNAL NA,H/H AND TACHYCARDIA, SENT TO ER. PT CURRENTLY PRESENTS WITH STABLE VSS. ALERT/AWAKE/CALM. PT A/OXO. IV ON LEFT FOOT PLACED IN FACILITY. G-TUBE IN PLACE AND WRAPPED WITH ABDOMEN WRAP. NKA. HX,RX -- SEE CHART
--- NOTE | 2019-09-09 15:07 | NUR ---
SIDE RAIL X2
[2019-09-09] MEDS ORDERED: NACL 0.9% 1,000 ML IV SCH (15:19)
--- NOTE | 2019-09-09 15:28 | NUR ---
XRAY AT BEDSIDE
[2019-09-09 16:16] LABS: BASOPHILS % (AUTO) 0.6 % (0.0-2.0); EOSINOPHILS # (AUTO) 0.3 K/uL (0-0.4); EOSINOPHILS % (AUTO) 4.8 % (0.0-4.0); HEMATOCRIT 24.5 % (36-52); LYMPHOCYTES # (AUTO) 0.6 K/uL (2.0-11.5); LYMPHOCYTES % (AUTO) 9.8 % (20.5-51.1); MEAN CORPUSCULAR HEMOGLOBIN 23 pg (27-31); MEAN CORPUSCULAR HGB CONC 33 g/dL (33-37); MEAN CORPUSCULAR VOLUME 70.7 fL (80-94); MONOCYTES # (AUTO) 0.3 K/uL (0.8-1.0); MONOCYTES % (AUTO) 4.8 % (1.7-9.3); NEUTROPHILS # (AUTO) 4.6 K/uL (1.8-7.7); PLATELET COUNT (AUTO) 661 K/uL (140-450); RED BLOOD CELL COUNT(AUTO) 3.46 MIL/uL (4.20-6.10); RED CELL DISTRIBUTION WIDTH 21.1 % (11.6-13.7); WHITE BLOOD COUNT (AUTO) 5.7 K/uL (4.8-10.8)
[2019-09-09 16:34] LABS: ALBUMIN 2.2 g/dL (3.4-5.0); ANION GAP 8.1 (8-16); CARBON DIOXIDE 28.6 mmol/L (21-32); CREATININE 0.5 mg/dL (0.6-1.3); POTASSIUM 3.7 mmol/L (3.5-5.1); TOTAL BILIRUBIN 0.2 mg/dL (0.0-1.0)
--- NOTE | 2019-09-09 18:00 | NUR ---
ERMD AT BEDSIDE
--- NOTE | 2019-09-09 18:09 | NUR ---
WOUNDS COVERED WITH NEW FOAM PADS
--- NOTE | 2019-09-09 18:09 | NUR ---
PICTURES TAKEN OF WOUNDS , ON CHART
--- NOTE | 2019-09-09 19:17 | NUR ---
REPORT GIVEN TO MARISABEL PARSON FOR CONTINUITY OF CARE
[2019-09-09] MEDS ORDERED: BISACODYL 10 MG SUPP RC PRN (19:20)
[2019-09-09] MEDS ORDERED: ACETAMINOPHEN 325 MG TAB PO PRN (19:25)
[2019-09-09] MEDS ORDERED: ONDANSETRON 4 MG/2 ML VIAL IVP PRN (19:25)
[2019-09-09] MEDS ORDERED: MORPHINE SULFATE 4 MG/ML SYR IVP PRN (19:25)
--- NOTE | 2019-09-09 20:00 | NUR ---
RECEIVED PATIENT FROM ER VIA GURNEY IN STABLE CONDITION. RESPIRATIONS EVEN, UNLABORED. SKIN WARM, DRY TO TOUCH. SKIN ASSESSMENT COMPLETED. SACRAL ULCER NOTED. RIGHT HEEL ULCER NOTED. ABDOMEN SOFT, NONTENDER. GT NOTED. IV SITE TO RIGHT FOOT 20G NOTED, PATENT/INTACT. FLACC 0. NO S/SX ACUTE DISTRESS. MRSA SCREEN COMPLETED. SAFETY PRECAUTIONS IN PLACE. ORIENTED PATIENT TO ROOM, STAFF AND CALL LIGHT. CALL LIGHT WITHIN REACH. WILL CONTINUE TO MONITOR.
--- NOTE | 2019-09-09 20:10 | NUR ---
Patient will be admitted to [facility]. Admited to [facility]. Will go to room 113. Belongings list completed. Report to RAJEEV PARSON.
[2019-09-09] MEDS: DEXT 5% /NACL 0.9% 1,000 ML IV SCH (21:21)
[2019-09-09] MEDS: FAMOTIDINE 20 MG TAB PO SCH (21:24)
[2019-09-09] MEDS: DOCUSATE SODIUM 100 MG GELCAP PO SCH (21:24)
--- NOTE | 2019-09-09 22:12 | NUR ---
PATIENT ASLEEP AND IN STABLE CONDITION. FLACC 0. NO S/SX ACUTE DISTRESS. WILL CONTINUE TO MONITOR.
[2019-09-09 22:58] LABS: ANION GAP 6.1 (8-16); CARBON DIOXIDE 29.6 mmol/L (21-32); CREATININE 0.5 mg/dL (0.6-1.3); POTASSIUM 3.7 mmol/L (3.5-5.1)
[2019-09-10] VITALS: BP 144/88
--- NOTE | 2019-09-10 | NUR ---
MADE ROUNDS. PATIENT ASLEEP AND IN STABLE CONDITION. FLACC 0. NO S/SX ACUTE DISTRESS. WILL CONTINUE TO MONITOR.
[2019-09-10] MEDS ORDERED: SODIUM CHLORIDE 1 GM TAB PO SCH ×2 (03:00→10:00)
--- NOTE | 2019-09-10 03:38 | NUR ---
PATIENT AWAKE AND IN STABLE CONDITION. FLACC 0. NO S/SX ACUTE DISTRESS. CALL LIGHT WITHIN REACH. WILL CONTINUE TO MONITOR.
--- NOTE | 2019-09-10 04:30 | NUR ---
SPOKE TO DR. PRATT, MANAGER AGENCY FOR DR. STEPHENSON, REGARDING SODIUM CHLORIDE TABS TO BE ADMINISTERED WHEN AVAILABLE FROM PHARMACY. ALSO RECEIVED NPO ORDER WELL FNS TO DECIDE TUBE FEEDING RATE. PATIENT IS CURRENTLY AWAKE AND IN STABLE CONDITION. FLACC 0. NO S/SX ACUTE DISTRESS. NOTED. CALL LIGHT WITHIN REACH. WILL CONTINUE TO MONITOR.
--- NOTE | 2019-09-10 05:48 | NUR ---
PATIENT ASLEEP AND IN STABLE CONDITION. FLACC 0. NO S/SX ACUTE DISTRESS. CALL LIGHT WITHIN REACH. WILL CONTINUE TO MONITOR.
--- NOTE | 2019-09-10 07:20 | NUR ---
RECEIVED REPORT FROM NIGHT NURSE FOR CONTINUITY OF CARE, PT IS STABLE, PT IS APHASIC, NO SIGNS OF DISTRESS NOTED, PT HAS LEFT FOOT 22G, INFUSING D5NS AT 75ML, SAFETY MEASURES IN PLACE, UPDATE WHITEBOARD, WILL CONTINUE TO MONITOR,
--- NOTE | 2019-09-10 07:22 | NUR ---
ENDORSED PATIENT TO AM SHIFT NURSE IN STABLE CONDITION FOR CONTINUITY OF CARE.
[2019-09-10 07:30] LABS: BASOPHILS % (AUTO) 0.5 % (0.0-2.0); EOSINOPHILS # (AUTO) 0.3 K/uL (0-0.4); EOSINOPHILS % (AUTO) 6.5 % (0.0-4.0); HEMATOCRIT 22.4 % (36-52); HEMOGLOBIN 7.6 g/dL (12.0-18.0); LYMPHOCYTES # (AUTO) 0.6 K/uL (2.0-11.5); LYMPHOCYTES % (AUTO) 12.8 % (20.5-51.1); MEAN CORPUSCULAR HEMOGLOBIN 24 pg (27-31); MEAN CORPUSCULAR HGB CONC 34 g/dL (33-37); MEAN CORPUSCULAR VOLUME 70.4 fL (80-94); MONOCYTES # (AUTO) 0.5 K/uL (0.8-1.0); MONOCYTES % (AUTO) 9.2 % (1.7-9.3); NEUTROPHILS # (AUTO) 3.5 K/uL (1.8-7.7); PLATELET COUNT (AUTO) 621 K/uL (140-450); RED BLOOD CELL COUNT(AUTO) 3.18 MIL/uL (4.20-6.10); WHITE BLOOD COUNT (AUTO) 4.9 K/uL (4.8-10.8)
[2019-09-10] MEDS ORDERED: BISACODYL 10 MG SUPP RC PRN (07:31)
[2019-09-10 08:00] VITALS: BP 132/84
[2019-09-10 08:03] LABS: MAGNESIUM 1.4 mg/dL (1.8-2.4); PHOSPHORUS 2.3 mg/dL (2.5-4.9)
--- NOTE | 2019-09-10 08:59 | NUR ---
PATIENT HAS BEEN SCREENED AND CATEGORIZED HIGH NUTRITION RISK. PATIENT WILL BE SEEN WITHIN 1-2 DAYS OF ADMISSION. 09/10/19-09/11/[address]
[2019-09-10] MEDS: [UNRECOGNIZED DRUG - OTHER] OP SCH (09:00)
[2019-09-10] MEDS: POLYMYXIN OP SCH (09:00)
[2019-09-10] MEDS ORDERED: HYDROcodone/APAP 5/325 MG 1 TAB TAB PO PRN (09:00)
[2019-09-10] MEDS ORDERED: HYDROcodone/APAP 5/325 MG 1 TAB TAB PO SCH (09:00)
[2019-09-10] MEDS: NEOMYCIN OP SCH (09:00)
[2019-09-10] MEDS: ZINC SULF 220 MG CAP PO SCH (09:34)
[2019-09-10] MEDS: ASPIRIN 81 MG TAB.CHEW PO SCH (09:34)
[2019-09-10] MEDS: DOCUSATE SODIUM 100 MG GELCAP PO SCH ×2 (09:34→21:00)
[2019-09-10] MEDS: levETIRAcetam 500 MG TAB PO SCH (09:34)
[2019-09-10 09:35] LABS: CARBON DIOXIDE 26.5 mmol/L (21-32); CREATININE 0.5 mg/dL (0.6-1.3); POTASSIUM 3.5 mmol/L (3.5-5.1)
[2019-09-10] MEDS: FAMOTIDINE 20 MG TAB PO SCH ×2 (09:35→20:23)
[2019-09-10] MEDS: MULTIVITAMIN 1 TAB PO SCH (09:35)
[2019-09-10] MEDS: MAGNESIUM HYDROXIDE 2400 MG/30 ML UDC PO PRN (09:35)
--- NOTE | 2019-09-10 09:35 | NUR ---
GAVE PT ORDERED MEDICATION, EDUCATION GIVEN, PT TOLERATED WELL, PT IS STABLE, WILL CONTINUE TO MONITOR.
[2019-09-10] MEDS: DEXT 5% /NACL 0.9% 1,000 ML IV SCH ×2 (09:36→22:05)
[2019-09-10] MEDS: ENOXAPARIN 40 MG/0.4 ML SYR SUBQ SCH (09:39)
[2019-09-10] MEDS ORDERED: MAG SULF 2000 MG/WATER PREMIX 50 ML IV SCH (11:00)
--- NOTE | 2019-09-10 11:00 | NUR ---
PT IS STABLE, RESTING IN BED, SAFETY MEASURES IN PLACE, WILL CONTINUE TO MONITOR.
[2019-09-10] MEDS ORDERED: MAG SULF 2000 MG/WATER PREMIX 50 ML IV ONE (11:25)
[2019-09-10] MEDS: SODIUM PHOS / POTASSIUM PHOS 1 PKT PDR PO SCH ×2 (13:37→17:44)
--- NOTE | 2019-09-10 13:45 | NUR ---
09/10/19 RD INITIAL ASSESSMENT COMPLETED PLEASE REFER TO NUTRITION ASSESSMENT UNDER CARE ACTIVITY FOR ESTIMATED NUTRITIONAL NEEDS. 1. RECOMMEND JEVITY 1.2 @ 75 ML/HR X 24 HR. START AT 25 ML/HR AND INCREASE BY 25 ML/HR Q4H -THIS WILL PROVIDE 1452 ML OF WATER, 2160 KCAL AND 99 GRAMS OF PROTEIN WHICH WILL MEET 100% OF ESTIMATED NUTRIENT NEEDS 2. RECOMMEND FREE WATER FLUSH OF 115 ML Q4H 3. CONTINUE MULTIVITAMIN W/VITAMIN C 4. CONTINUE ZINC SUPPLEMENTS X [address] TO FOLLOW-UP 2-3 DAYS, HIGH RISK SUSHIL HERNANDEZ RD
--- NOTE | 2019-09-10 13:47 | NUR ---
ADMINISTERED ORDERED MEDICATION, PT EDUCATION GIVEN, PT TOLERATED WELL, PT IS STABLE, WILL CONTINUE TO MONITOR.
--- NOTE | 2019-09-10 14:51 | NUR ---
Oracle Applications Developer Note: Basic Screen: Yes High Risk DC Screen Hollister: NARDA OVERTON Home Relationship: FAMILY Pre-Admission Living Arrangements: SNF Prior ADL Total/Dependent Current Home Health Name/Tel: N/A Current DME/02 Name/Tel: HOSPITAL BED Current Hospice Name/Tel: N/A Current Dialysis Name/Tel: N/A Healthcare Decision Maker: Next of Kin Other: FATHER - SUNDAY OVERTON - [phone] Advance Directive No Physician Orders for Life Sustaining Treatment Form No Patient/Family Have Educational Needs No Discipline: Case Mgt/Social Svcs Tentative Discharge Plan/Destination: SNF/ECF Will require assistance post discharge: No Referred to Explosion Welder: No Tentative Discharge Plan Summary: Patient is a 53-year-old male admitted for hyponatremia. Patient has PMHX of cerebrovascular accide and seizures. Patient was admitted from [facility]. SW contacted Ai from [facility] [phone]. Per Ai, patient is skilled and currently on a bed hold. Ai reported that patient is bed bound and requires total assistance with ADLs. Ai stated that patient's father, Sunday Overton [phone] is patient's healthcare decision maker, but only speaks Chinese. Patient is not alert/oriented at baseline. Tentative discharge plan is for patient to return to [facility]. No further needs identified. Signature: JOSE DANIEL Choudhury Date: Sep 10, 2019 Time: 14:41
[2019-09-10] MEDS: SODIUM CHLORIDE 1 GM TAB PO SCH ×2 (15:06→20:23)
--- NOTE | 2019-09-10 15:06 | NUR ---
ADMINISTERED ORDERED MEDICATION, PT EDUCATION GIVEN, PT TOLERATED WELL, PT IS STABLE.
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
[2019-09-10 16:00] VITALS: BP 138/87
[2019-09-10 17:02] LABS: ANION GAP 7.6 (8-16); CREATININE 0.5 mg/dL (0.6-1.3); POTASSIUM 3.6 mmol/L (3.5-5.1)
[2019-09-10 17:31] LABS: FREE T4 (FREE THYROXINE) 0.83 ng/dL (0.76-1.46); THYROID STIMULATING HORMONE 8.28 uIU/mL (0.34-3.74); URIC ACID 2.8 mg/dL (2.6-7.2)
--- NOTE | 2019-09-10 17:44 | NUR ---
ADMINISTERED ORDERED MEDICATION, PT EDUCATION GIVEN, PT TOLERATED MEDICATION WELL, PT IS STABLE, WILL CONTINUE TO MONITOR.
--- NOTE | 2019-09-10 19:28 | NUR ---
RECEIVED PATIENT IN STABLE CONDITION FROM AM SHIFT NURSE FOR CONTINUITY OF CARE. RESPIRATIONS EVEN, UNLABORED. FLACC 0. NO S/SX ACUTE DISTRESS. IV SITE TO RIGHT FOOT 20G PATENT/INTACT, INFUSING FLUIDS WELL. SAFETY PRECAUTIONS IN PLACE. ISOLATION PRECAUTIONS OBSERVED BY ALL STAFF. CALL LIGHT WITHIN REACH. WILL CONTINUE TO MONITOR.
--- NOTE | 2019-09-10 19:28 | NUR ---
GAVE REPORT TO NIGHT NURSE FOR CONTINUITY OF CARE, PT IS STABLE.
--- NOTE | 2019-09-10 21:00 | NUR ---
JEVITY 1.2 25ML/HR VIA GT VIA ENTERAL PUMP STARTED ON PATIENT. PATIENT CONTINUES IN STABLE CONDITION. NO C/O PAIN. NO S/SX ACUTE DISTRESS. CALL LIGHT WITHIN REACH. WILL CONTINUE TO MONITOR.
--- NOTE | 2019-09-10 23:10 | NUR ---
PATIENT AWAKE AND IN STABLE CONDITION. FLACC 0. NO S/SX ACUTE DISTRESS. INCONTINENT CARE RENDERED. CALL LIGHT WITHIN REACH. WILL CONTINUE TO MONITOR.
[2019-09-11] VITALS: BP 128/53
--- NOTE | 2019-09-11 01:00 | NUR ---
JEVITY 1.2 INCREASED BY 25 ML/HR PER RD CONSULT. FEEDING RATE CURRENTLY AT 50 ML/HR. GT PATENT WITH NO RESIDUAL NOTED. BOWEL SOUNDS ACTIVE X4 QUADRANTS. ABDOMEN SOFT, NONTENDER. PATIENT HOB 30 DEGREES. FLACC 0. NO S/SX ACUTE DISTRESS. CALL LIGHT WITHIN REACH. WILL CONTINUE TO MONITOR.
[2019-09-11] MEDS: DEXT 5% /NACL 0.9% 1,000 ML IV SCH (01:20)
--- NOTE | 2019-09-11 03:30 | NUR ---
PATIENT AWAKE AND IN STABLE CONDITION. FLACC 0. NO S/SX ACUTE DISTRESS. CALL LIGHT WITHIN REACH. WILL CONTINUE TO MONITOR.
--- NOTE | 2019-09-11 05:00 | NUR ---
GT FEEDING INCREASED TO 75 ML/HR. NO RESIDUAL NOTED. HOB UP 30 DEGREES. NO C/O PAIN. NO S/SX ACUTE DISTRESS. CALL LIGHT WITHIN REACH. WILL CONTINUE TO MONITOR.
--- NOTE | 2019-09-11 07:00 | NUR ---
PATIENT CONTINUES IN STABLE CONDITION. FLACC 0. NO S/SX ACUTE DISTRESS. CALL LIGHT WITHIN REACH. WILL CONTINUE TO MONITOR.
[2019-09-11 07:47] LABS: BASOPHILS % (AUTO) 1.1 % (0.0-2.0); EOSINOPHILS # (AUTO) 0.3 K/uL (0-0.4); EOSINOPHILS % (AUTO) 6.3 % (0.0-4.0); HEMATOCRIT 20.8 % (36-52); HEMOGLOBIN 7.1 g/dL (12.0-18.0); LYMPHOCYTES # (AUTO) 0.7 K/uL (2.0-11.5); LYMPHOCYTES % (AUTO) 15.6 % (20.5-51.1); MEAN CORPUSCULAR HEMOGLOBIN 24 pg (27-31); MEAN CORPUSCULAR HGB CONC 34 g/dL (33-37); MEAN CORPUSCULAR VOLUME 70.5 fL (80-94); MONOCYTES # (AUTO) 0.5 K/uL (0.8-1.0); MONOCYTES % (AUTO) 12.1 % (1.7-9.3); NEUTROPHILS # (AUTO) 2.7 K/uL (1.8-7.7); NEUTROPHILS % (AUTO) 64.9 % (42.2-75.2); PLATELET COUNT (AUTO) 642 K/uL (140-450); RED BLOOD CELL COUNT(AUTO) 2.95 MIL/uL (4.20-6.10); RED CELL DISTRIBUTION WIDTH 21.1 % (11.6-13.7); WHITE BLOOD COUNT (AUTO) 4.2 K/uL (4.8-10.8)
[2019-09-11 08:00] VITALS: BP 139/84
[2019-09-11 08:11] LABS: ANION GAP 10.4 (8-16); CREATININE 0.6 mg/dL (0.6-1.3); POTASSIUM 3.4 mmol/L (3.5-5.1)
[2019-09-11] MEDS: SODIUM PHOS / POTASSIUM PHOS 1 PKT PDR PO SCH (08:17)
[2019-09-11] MEDS: DOCUSATE 100 MG/10 ML UDC GT SCH ×2 (08:17→20:17)
[2019-09-11] MEDS: ENOXAPARIN 40 MG/0.4 ML SYR SUBQ SCH (08:18)
[2019-09-11] MEDS: ASPIRIN 81 MG TAB.CHEW PO SCH (08:19)
[2019-09-11] MEDS: MULTIVITAMIN 1 TAB PO SCH (08:19)
[2019-09-11] MEDS: FAMOTIDINE 20 MG TAB PO SCH (08:19)
[2019-09-11] MEDS: levETIRAcetam 500 MG TAB PO SCH (08:19)
[2019-09-11] MEDS: ZINC SULF 220 MG CAP PO SCH (08:19)
[2019-09-11] MEDS ORDERED: POTASSIUM CHLORIDE 10 MEQ TABER PO SCH (09:15)
[2019-09-11 09:26] LABS: MAGNESIUM 1.7 mg/dL (1.8-2.4); PHOSPHORUS 2.3 mg/dL (2.5-4.9)
--- NOTE | 2019-09-11 09:30 | NUR ---
SPOKE TO DR. STEPHENSON REGARDING PO MEDICATIONS; PATIENT IS NOT ALERT ENOUGH TO SWALLOW. DR. STEPHENSON SAID TO CHANGE MEDICATION ROUTE TO VIA GTUBE..
[2019-09-11] MEDS ORDERED: ACETAMINOPHEN 650 MG/20.3 ML UDC GT PRN (09:50)
[2019-09-11] MEDS ORDERED: HYDROcodone/APAP 5/325 MG 1 TAB TAB GT PRN (09:50)
[2019-09-11] MEDS: [UNRECOGNIZED DRUG - OTHER] OP SCH (09:55)
[2019-09-11] MEDS: POLYMYXIN OP SCH (09:55)
[2019-09-11] MEDS: NEOMYCIN OP SCH (09:55)
[2019-09-11] MEDS ORDERED: POTASSIUM CHLORIDE 20% 40 MEQ/15 ML UDC GT SCH (10:30)
--- NOTE | 2019-09-11 10:50 | NUR ---
ENDORSED PATIENT IN STABLE CONDITION TO AM SHIFT NURSE FOR CONTINUITY OF CARE.
[2019-09-11 12:03] LABS: URINE SODIUM, RANDOM 99 mmol/l (40-220)
[2019-09-11 12:04] LABS: POTASSIUM,URINE RANDOM 16 mmol/L (12-75)
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
[2019-09-11] MEDS: ALGINATE DRESSING MC SCH (13:00)
[2019-09-11] MEDS: GAUZE TP SCH (13:00)
[2019-09-11] MEDS: SODIUM PHOS / POTASSIUM PHOS 1 PKT PDR GT SCH ×2 (13:00→16:07)
--- NOTE | 2019-09-11 14:02 | NUR ---
RECEIVED PATIENT FROM KAY RN FOR CONTINUITY OF CARE
--- NOTE | 2019-09-11 15:30 | NUR ---
STARTED G-TUBE FEEDING. JEVITY 1.2 AT RATE 75 ML/HR, WATER FLUSH 115 Q4H. GASTRIC RESIDUAL PRIOR IS 3ML. PATIENT IS TOLERATING FEEDING. HANG NEW IV BAG OF D5NS AT 75 ML/HR. BED IN LOW POSITION. CALL LIGHT IS WITHIN REACH. WILL CONTINUE TO MONITOR.
[2019-09-11 16:00] VITALS: BP 125/80
[2019-09-11] MEDS: SODIUM FERRIC GLUCONATE 125 MG in NACL 0.9% 100 ML IV SCH (16:07)
--- NOTE | 2019-09-11 16:07 | NUR ---
HANG FERRLICET VIA IVPB. GIVEN NEUTRA-PHOS VIA GT. GIVEN MEDICATION EDUCATION. BED IN LOW POSITION. CALL LIGHT IS WITHIN REACH. WILL CONTINUE TO MONITOR.
--- NOTE | 2019-09-11 17:27 | NUR ---
PATIENT IS SLEEPING AT THIS TIME. NO SIGNS OF DISTRESS NOTED. BED IN LOW POSITION. CALL LIGHT IS WITHIN REACH. WILL CONTINUE TO MONITOR
--- NOTE | 2019-09-11 18:43 | NUR ---
PATIENT IS AWAKE, WATCHING PEOPLE PASS BY. NO SIGNS OF DISTRESS NOTED. BED IN LOW POSITION. CALL LIGHT IS WITHIN REACH. GTUBE AND IV FLUID RUNNING. WILL CONTINUE TO MONITOR
--- NOTE | 2019-09-11 19:14 | NUR ---
ENDORSED PATIENT TO THE DIRECTOR LIFE NURSE FOR CONTINUITY OF CARE. PATIENT IS AWAKE. RESPIRATIONS EVEN AND UNLABORED, ROOM AIR. NO SIGNS OF DISTRESS NOTED. GTUBE FEEDING AND IV FLUID RUNNING. PATIENT IS IN STABLE CONDITION
--- NOTE | 2019-09-11 19:15 | NUR ---
RECEIVED PATIENT IN STABLE CONDITION FROM AM SHIFT NURSE FOR CONTINUITY OF CARE. RESPIRATIONS EVEN, UNLABORED. FLACC 0. NO S/SX ACUTE DISTRESS. IV SITE TO RIGHT FOOT 20G PATENT, INTACT, AND ASYMPTOMATIC. SAFETY PRECAUTIONS IN PLACE. CONTACT ISOLATION PRECAUTIONS IN PLACE. BED IN LOW POSITION, CALL LIGHT WITHIN REACH. WILL CONTINUE TO MONITOR.
[2019-09-11] MEDS: FAMOTIDINE 20 MG TAB GT SCH (20:17)
[2019-09-11] MEDS: SODIUM CHLORIDE 1 GM TAB GT SCH (20:17)
--- NOTE | 2019-09-11 20:17 | NUR ---
GIVEN COLACE, FAMOTIDINE, SODIUM CHLORIDE MD ORDERED. PT TOLERATED WELL.
--- NOTE | 2019-09-11 22:21 | NUR ---
PT AWAKE, RESTING IN BED. NO ACUTE DISTRESS NOTED. WILL CONTINUE TO MONITOR.
[2019-09-12] VITALS: BP 129/86
--- NOTE | 2019-09-12 | NUR ---
VS CHECKED, WITHIN PT'S BASELINE. PT SLEEPING IN BED COMFORTABLY. NO ACUTE DISTRESS NOTED.
[2019-09-12] MEDS: DEXT 5% /NACL 0.9% 1,000 ML IV SCH ×2 (00:45→06:28)
--- NOTE | 2019-09-12 02:05 | NUR ---
PT SLEEPING IN BED COMFORTABLY. NO ACUTE DISTRESS NOTED.
--- NOTE | 2019-09-12 04:04 | NUR ---
PT SLEEPING IN BED COMFORTABLY. NO ACUTE DISTRESS NOTED.
--- NOTE | 2019-09-12 06:48 | NUR ---
PT IN STABLE CONDITION, WILL ENDORSE PT TO DAY SHIFT NURSE FOR CONTINUOUS CARE.
--- NOTE | 2019-09-12 07:06 | NUR ---
RECEIVED PATIENT FROM THE ETHYLENE PLANT OPERATOR NURSE, SATHISH, FOR CONTINUITY OF CARE. PATIENT IS AWAKE, APHASIC, RESPIRATIONS EVEN AND UNLABORED, ROOM AIR. VISIBLE CHEST RISE NOTED. MED-SURG. G-TUBE FEEDING IN PLACE RUNNING JEVITY 1.2 AT 75 ML/HR, H20 FLUSH AT 115 ML/HR Q4H. GASTRIC RESIDUAL 10 ML. PATIENT IS TOLERATING FEEDING. ABDOMEN SOFT AND NONTENDER. SKIN WARM, DRY. SACRAL PRESSURE AND HEEL PRESSURE. DRESSINGS DRY AND INTACT. IV IN THE LEFT FOOT G20 RUNNING D5NS AT 75 ML/HR. IV PATENT AND INTACT. PATIENT IS INCONTINENT, BEDBOUND, FALL PRECAUTIONS IN PLACE. BED IN LOW POSITION. CALL LIGHT IS WITHIN REACH. WILL CONTINUE TO MONITOR.
[2019-09-12 07:09] LABS: BASOPHILS % (AUTO) 0.8 % (0.0-2.0); EOSINOPHILS # (AUTO) 0.2 K/uL (0-0.4); EOSINOPHILS % (AUTO) 6.1 % (0.0-4.0); HEMATOCRIT 20.5 % (36-52); LYMPHOCYTES # (AUTO) 0.7 K/uL (2.0-11.5); LYMPHOCYTES % (AUTO) 23.2 % (20.5-51.1); MEAN CORPUSCULAR HEMOGLOBIN 24 pg (27-31); MEAN CORPUSCULAR HGB CONC 33 g/dL (33-37); MEAN CORPUSCULAR VOLUME 71.4 fL (80-94); MONOCYTES # (AUTO) 0.5 K/uL (0.8-1.0); MONOCYTES % (AUTO) 17.2 % (1.7-9.3); NEUTROPHILS # (AUTO) 1.7 K/uL (1.8-7.7); NEUTROPHILS % (AUTO) 52.7 % (42.2-75.2); PLATELET COUNT (AUTO) 584 K/uL (140-450); RED BLOOD CELL COUNT(AUTO) 2.88 MIL/uL (4.20-6.10); RED CELL DISTRIBUTION WIDTH 21.1 % (11.6-13.7); WHITE BLOOD COUNT (AUTO) 3.2 K/uL (4.8-10.8)
[2019-09-12 07:17] LABS: ANION GAP 5.1 (8-16); CARBON DIOXIDE 29.4 mmol/L (21-32); CREATININE 0.4 mg/dL (0.6-1.3); POTASSIUM 3.5 mmol/L (3.5-5.1)
--- NOTE | 2019-09-12 07:19 | NUR ---
CRITICAL LAB HGB 6.1, HCT 20.5. WILL INFORM DR. STEPHENSON.
[2019-09-12 07:20] LABS: HEMOGLOBIN 6.8 g/dL (12.0-18.0)
--- NOTE | 2019-09-12 07:30 | NUR ---
PAGED DR. STEPHENSON FOR ORDERS. WILL WAIT FOR CALL BACK
[2019-09-12 07:31] LABS: MAGNESIUM 1.6 mg/dL (1.8-2.4); PHOSPHORUS 2.2 mg/dL (2.5-4.9)
[2019-09-12 08:00] VITALS: BP 121/71
--- NOTE | 2019-09-12 08:35 | NUR ---
RECEIVED TELEPHONE ORDER FROM DR. STEPHENSON FOR 2 UNITS OF PACKED RBC. WILL CARRY ON ORDERS.
[2019-09-12] MEDS: ENOXAPARIN 40 MG/0.4 ML SYR SUBQ SCH (09:00)
[2019-09-12] MEDS ORDERED: ASPIRIN 81 MG TAB.CHEW GT SCH (09:00)
[2019-09-12] MEDS: MAGNESIUM HYDROXIDE 2400 MG/30 ML UDC PO PRN (09:11)
[2019-09-12] MEDS: FAMOTIDINE 20 MG TAB GT SCH ×2 (09:12→21:10)
[2019-09-12] MEDS: MULTIVITAMIN 1 TAB GT SCH (09:12)
[2019-09-12] MEDS: ZINC SULF 220 MG CAP GT SCH (09:12)
[2019-09-12] MEDS: DOCUSATE 100 MG/10 ML UDC GT SCH ×2 (09:12→21:10)
[2019-09-12] MEDS: SODIUM CHLORIDE 1 GM TAB GT SCH ×3 (09:12→16:29)
--- NOTE | 2019-09-12 09:12 | NUR ---
GIVEN MORNING MEDICATIONS VIA GT. GIVEN MEDICATION EDUCATION. GASTRIC RESIDUAL 3 ML. PATIENT IS TOLERATING TUBE FEEDING. BED IN LOW POSITION. CALL LIGHT IS WITHIN REACH. WILL CONTINUE TO MONITOR
[2019-09-12] MEDS: [UNRECOGNIZED DRUG - OTHER] OP SCH (09:13)
[2019-09-12] MEDS: NEOMYCIN OP SCH (09:13)
[2019-09-12] MEDS: levETIRAcetam 100 MG/ML ORASYR GT SCH (09:13)
[2019-09-12] MEDS: POLYMYXIN OP SCH (09:13)
[2019-09-12] MEDS: FERROUS SULFATE 300 MG/5 ML UDC GT SCH (09:13)
[2019-09-12] MEDS: SODIUM PHOS / POTASSIUM PHOS 1 PKT PDR GT SCH ×3 (09:13→16:29)
--- NOTE | 2019-09-12 10:00 | NUR ---
PATIENT'S BROTHER, NARDA, MADE A TELEPHONE CONSENT FOR BLOOD TRANSFUSION. CHARGE NURSE KALYANI IS AWARE AND WITNESS.
--- NOTE | 2019-09-12 10:45 | NUR ---
PAGED DR. STEPHENSON. WILL WAIT FOR CALL BACK
--- NOTE | 2019-09-12 11:26 | NUR ---
CALLED NARDA, PATIENT'S BROTHER, IF HE CAN SIGN PATIENT'S PAPERWORK. MOM ANSWERED THE PHONE AND STATED NO ONE IS AVAILABLE TO DRIVE HERE AT THIS TIME MOMENT. WILL TRY AGAIN
[2019-09-12] MEDS ORDERED: SODIUM CHLORIDE 1 GM TAB GT SCH (12:00)
[2019-09-12] MEDS ORDERED: MAG SULF 2000 MG/WATER PREMIX 50 ML IV SCH ×2 (12:30→18:00)
--- NOTE | 2019-09-12 12:30 | NUR ---
DR. STEPHENSON SIGNED BLOOD TRANSFUSION CONSENT
--- NOTE | 2019-09-12 12:35 | NUR ---
STARTED BLOOD TRANSFUSION. PRE-TRANSFUSION VS IS 107/56. RESP 16, ROOM AIR, T 97.7, HR IS 78. WILL CONTINUE TO MONITOR
[2019-09-12] MEDS ORDERED: SODIUM PHOSPHATE 30 MMOLE in NACL 0.9% 250 ML IV SCH ×2 (13:00→22:00)
--- NOTE | 2019-09-12 13:12 | NUR ---
VITAL SIGNS TRENDING DOWN. INFORMED DR. STEPHENSON
--- NOTE | 2019-09-12 13:14 | NUR ---
STOPPED BLOOD TRANSFUSION TO BOLUS WITH NS TO BRING BP UP PER DR. STEPHENSON
--- NOTE | 2019-09-12 13:15 | NUR ---
STATED BOLUS OF 500 CC OF NS FOR HYPOTENSION. WILL CONTINUE TO MONITOR
[2019-09-12] MEDS: ALGINATE DRESSING MC SCH (13:30)
[2019-09-12] MEDS: GAUZE TP SCH (13:30)
--- NOTE | 2019-09-12 13:39 | NUR ---
RESTARTED BLOOD TRANFUSION. BP NOW IS 133/90, HR 66, 02SAT 100%, RESP 18, TEMP. 98. WILL CONTINUE TO MONITOR
--- NOTE | 2019-09-12 14:10 | NUR ---
INCREASED RATE TO 100 ML/HR. NO SIGNS OF REACTIONS. WILL CONTINUE TO MONITOR.
--- NOTE | 2019-09-12 14:43 | NUR ---
NO SIGNS OF BLOOD TRANSFUSION REACTION. BP OF NOW IS 129/81, HR 81/ TEMP 98, RESP 18. . WILL CONTINUE TO MONITOR
[2019-09-12] MEDS ORDERED: POTASSIUM CHLORIDE 10 MEQ TABER PO SCH (15:00)
[2019-09-12] MEDS ORDERED: POTASSIUM CHLORIDE 20% 40 MEQ/15 ML UDC GT ONE (15:10)
[2019-09-12] MEDS ORDERED: POTASSIUM CHLORIDE 20% 40 MEQ/15 ML UDC GT SCH (15:13)
--- NOTE | 2019-09-12 15:16 | NUR ---
GIVEN KCL VIA GT. EXPLAINED MED. WILL CONTINUE TO MONITOR
--- NOTE | 2019-09-12 15:48 | NUR ---
NO SIGNS OF BLOOD TRANSFUSION REACTIONS. NO SIGNS OF ITCHINESS. BP IS 138/64, HR 78, O2SAT 100%, TEMP 97.9, RESP 18 ROOM AIR. WILL CONTINUE TO MONITOR
--- NOTE | 2019-09-12 15:48 | NUR ---
CHANGED WOUND DRESSINGS.
[2019-09-12 16:00] VITALS: BP 125/81
--- NOTE | 2019-09-12 16:13 | NUR ---
1 UNIT OF PRBC HAS BEEN INFUSED. NO SIGNS OF TRANSFUSION REACTIONS. WILL CONTINUE TO MONITOR.
[2019-09-12] MEDS: SODIUM FERRIC GLUCONATE 125 MG in NACL 0.9% 100 ML IV SCH (16:14)
--- NOTE | 2019-09-12 16:14 | NUR ---
HANG FERRLECIT IV IVPB. GIVEN MEDICATION EDUCATION. BED IN LOW POSITION. CALL LIGHT IS WITHIN REACH. WILL CONTINUE TO MONITOR
--- NOTE | 2019-09-12 16:15 | NUR ---
BARBARA MANN RIDER VIA IVF. EXPLAINED MED. WILL CONTINUE TO MONITOR
--- NOTE | 2019-09-12 16:29 | NUR ---
GIVEN NEUTRA PHOS AND SALT VIA GT. GASTRIC RESIDUAL 0 ML. WILL CONTINUE TO MONITOR
--- NOTE | 2019-09-12 16:30 | NUR ---
NEW IV IN THE LEFT MIDDLE FINGER. WILL RUN MAG RIDER WITH THIS LINE.
--- NOTE | 2019-09-12 17:00 | NUR ---
HANG NEW GTUBE FEEDING JEVITY 1.2 AT RATE 75. WATER FLUSH 115 ML/HR Q4H. GASTRIC RESIDUAL OF 5 ML. PATIENT IS TOLERATING TUBE FEEDING. WILL CONTINUE TO MONITOR
--- NOTE | 2019-09-12 18:20 | NUR ---
DISCONTINUED IV IN THE LEFT MIDDLE FINGER WAS LEAKING.
--- NOTE | 2019-09-12 19:21 | NUR ---
ENDORSED PATIENT TO THE EMBOSSING CALENDER OPERATOR NURSE FOR CONTINUITY OF CARE. PATIENT IS IN STABLE CONDITION.
--- NOTE | 2019-09-12 19:22 | NUR ---
RECEIVED REPORT FROM DAY SHIFT NURSE. PT LYING IN BED. AAOX0, APHASIC. NO S/S OF PAIN OR SOB. ON ROOM AIR. G-TUBE IN PLACE WITH FEEDING JEVITY 1.2 AT 75 ML/HR, H20 FLUSH 115 ML/HR Q4H. IV TO LEFT FOOT #20G, MAG RIDER RUNNING AT 25 ML/HR. PER ENDORSEMENT, GIVE BLOOD TRANSFUSION 2 HRS AFTER MAG RIDER IS DONE. SAFETY AND ASPIRATION PRECAUTION IN PLACE. CALL LIGHT WITHIN REACH.
--- NOTE | 2019-09-12 21:00 | NUR ---
GT RESIDUAL 5 ML. DUE MEDS GIVEN. PT TOLERATED WELL. ASPIRATION PRECAUTION IN PLACE.
--- NOTE | 2019-09-12 23:57 | NUR ---
STARTED BLOOD TRANSFUSION 1 UNIT PRBC. V/S CHECKED, WNL.
[2019-09-13] VITALS: BP 144/77
--- NOTE | 2019-09-13 00:15 | NUR ---
PT TOLERATING BLOOD TRANSFUSION WELL. VS WITHIN NORMAL LIMITS. WILL CONTINUE TO MONITOR.
--- NOTE | 2019-09-13 02:15 | NUR ---
BLOOD TRANSFUSION ON GOING. NO S/S OF TRANSFUSION REACTIONS. NO S/S OF PAIN. SAFETY PRECAUTION IN PLACE.
--- NOTE | 2019-09-13 03:00 | NUR ---
BLOOD TRANSFUSION DONE. NO TRANSFUSION REACTIONS NOTED. NO S/S OF PAIN OR SOB. PT KEPT COMFORTABLE.
[2019-09-13 03:12] VITALS: BP 125/73
[2019-09-13] MEDS: DEXT 5% /NACL 0.9% 1,000 ML IV SCH (03:25)
--- NOTE | 2019-09-13 06:14 | NUR ---
HUNG NEW BOTTLE OF JEVITY 1.2 AT 75 ML/HR. ASPIRATION PRECAUTION IN PLACE.
--- NOTE | 2019-09-13 07:00 | NUR ---
ENDORSED TO DAY SHIFT NURSE. PT IN STABLE CONDITION.
[2019-09-13 07:01] LABS: BASOPHILS % (AUTO) 0.8 % (0.0-2.0); EOSINOPHILS # (AUTO) 0.1 K/uL (0-0.4); HEMATOCRIT 32.6 % (36-52); HEMOGLOBIN 10.5 g/dL (12.0-18.0); LYMPHOCYTES # (AUTO) 0.8 K/uL (2.0-11.5); LYMPHOCYTES % (AUTO) 24.7 % (20.5-51.1); MEAN CORPUSCULAR HEMOGLOBIN 25 pg (27-31); MEAN CORPUSCULAR HGB CONC 32 g/dL (33-37); MEAN CORPUSCULAR VOLUME 77.7 fL (80-94); MONOCYTES # (AUTO) 0.5 K/uL (0.8-1.0); MONOCYTES % (AUTO) 14.5 % (1.7-9.3); NEUTROPHILS # (AUTO) 1.8 K/uL (1.8-7.7); PLATELET COUNT (AUTO) 536 K/uL (140-450); RED BLOOD CELL COUNT(AUTO) 4.19 MIL/uL (4.20-6.10); RED CELL DISTRIBUTION WIDTH 21.2 % (11.6-13.7); WHITE BLOOD COUNT (AUTO) 3.2 K/uL (4.8-10.8)
--- NOTE | 2019-09-13 07:05 | NUR ---
RECEIVED BEDSIDE REPORT FROM NIGHTSHIFT NURSE. PT RESTING IN BED. ABLE TO MAKE NEEDS KNOWN. RESPIRATIONS EVEN AND UNLABORED WITH NO SOB OR RESPIRATORY DISTRESS. SKIN WARM AND DRY TO TOUCH. IV SITE IN LEFT FOOT 20G IS CLEAN, DRY, AND INTACT. SAFETY MEASURES IN PLACE. WILL CONTINUE TO MONITOR.
[2019-09-13 07:28] LABS: ANION GAP 7.5 (8-16); CARBON DIOXIDE 29.4 mmol/L (21-32); CREATININE 0.4 mg/dL (0.6-1.3); POTASSIUM 3.9 mmol/L (3.5-5.1)
[2019-09-13 07:32] LABS: MAGNESIUM 1.8 mg/dL (1.8-2.4)
[2019-09-13 08:00] VITALS: BP 131/88
[2019-09-13] MEDS: FERROUS SULFATE 300 MG/5 ML UDC GT SCH (09:33)
[2019-09-13] MEDS: ZINC SULF 220 MG CAP GT SCH (09:33)
[2019-09-13] MEDS: DOCUSATE 100 MG/10 ML UDC GT SCH (09:33)
[2019-09-13] MEDS: POLYMYXIN OP SCH (09:34)
[2019-09-13] MEDS: NEOMYCIN OP SCH (09:34)
[2019-09-13] MEDS: FAMOTIDINE 20 MG TAB GT SCH (09:34)
[2019-09-13] MEDS: [UNRECOGNIZED DRUG - OTHER] OP SCH (09:34)
[2019-09-13] MEDS: MULTIVITAMIN 1 TAB GT SCH (09:34)
[2019-09-13] MEDS: SODIUM CHLORIDE 1 GM TAB GT SCH ×2 (09:35→13:00)
[2019-09-13] MEDS: SODIUM PHOS / POTASSIUM PHOS 1 PKT PDR GT SCH ×2 (09:35→13:27)
--- NOTE | 2019-09-13 09:35 | NUR ---
ADMINISTERED SCHED MED PRESCRIBED PER MD ORDER. PT TOLERATED WELL. MEDICATION EDUCATION PERFORMED. PT APHASIC AND UNABLE TO VERBALIZE UNDERSTANDING. SAFETY MEASURES IN PLACE. WILL CONTINUE TO MONITOR.
[2019-09-13] MEDS: levETIRAcetam 100 MG/ML ORASYR GT SCH (09:36)
--- NOTE | 2019-09-13 11:30 | NUR ---
HOURLY ROUNDING. FAMILY AT BEDSIDE. PT RESTING IN BED. FLACC 0. RESPIRATIONS EVEN AND UNLABORED WITH NO SOB OR RESPIRATORY DISTRESS. SKIN WARM AND DRY TO TOUCH. SAFETY MEASURES IN PLACE. WILL CONTINUE TO MONITOR.
--- NOTE | 2019-09-13 11:45 | NUR ---
Spoke to Dr. Benjamin regarding to recommend sacral debridement, per doctor " half-way have their Skin doctor to make rounds and do debridement."
[2019-09-13] MEDS ORDERED: FER300L GT (12:12)
[2019-09-13] MEDS ORDERED: SODI100076 GT (12:12)
--- NOTE | 2019-09-13 13:15 | NUR ---
PT RESTING IN BED. FLACC 0. RESPIRATIONS EVEN AND UNLABORED WITH NO SOB OR RESPIRATORY DISTRESS. SKIN WARM AND DRY TO TOUCH. SAFETY MEASURES IN PLACE. WILL CONTINUE TO MONITOR.
[2019-09-13] MEDS: GAUZE TP SCH (13:28)
[2019-09-13] MEDS: ALGINATE DRESSING MC SCH (13:28)
--- NOTE | 2019-09-13 14:49 | NUR ---
RECEIVED CALL FROM PO[facility]IMA. PT WILL BE DISCHARGED TO [facility] IN ROOM 34A AROUND 5:30 THIS EVENING. SAFETY MEASURES IN PLACE. WILL CONTINUE TO MONITOR.
[2019-09-13 16:00] VITALS: BP 111/72
[2019-09-13] MEDS: SODIUM FERRIC GLUCONATE 125 MG in NACL 0.9% 100 ML IV SCH (16:10)
--- NOTE | 2019-09-13 16:15 | NUR ---
GAVE REPORT TO GRIFFIN SHRESTHA AT [facility]. NURSE VERBALIZED UNDERSTANDING. SAFETY MEASURES IN PLACE. WILL CONTINUE TO MONITOR.
[2019-09-13 16:38] VITALS: BP 111/72
--- NOTE | 2019-09-13 17:15 | NUR ---
REPORT HAS PREVIOUSLY BEEN GIVEN TO GRIFFIN SHRESTHA AT [facility]. PT IS UNABLE TO SIGN FOR HIMSELF. ID BAND, INTACT IV CANNULA, AND ALLERGY BAND WERE REMOVED. PT CHANGED INTO ORANGE GOWN. PT BELONGINGS WERE GATHERED. FACE SHEET AND DISCHARGE PACKET GIVEN TO MEDICS. [facility] PICKED UP PATIENT AND WILL BE TAKING HIM TO ROOM 34A AT [facility] WHERE DR. PALAFOX WILL BE THE DOCTOR. PT IS STABLE.
== END 2019-09-13 17:15 | DRG 663 ==
LOC: MED 14:51 → MTU 19:24
PROVIDERS: ADMIT Internal Medicine; ATTEND Internal Medicine
PROC: 30233N1 Transfusion of Nonautologous Red Blood Cells into Peripheral Vein, Percutaneous Approach (ICD-10-PCS; principal; 2019-09-12)
DX: D50.9 Iron deficiency anemia, unspecified (principal); E43 Unspecified severe protein-calorie malnutrition; L89.153 Pressure ulcer of sacral region, stage 3; E22.2 Syndrome of inappropriate secretion of antidiuretic hormone; E83.39 Other disorders of phosphorus metabolism; R13.10 Dysphagia, unspecified; E11.65 Type 2 diabetes mellitus with hyperglycemia; E83.42 Hypomagnesemia; G40.909 Epilepsy, unspecified, not intractable, without status epilepticus; D47.3 Essential (hemorrhagic) thrombocythemia; E02 Subclinical iodine-deficiency hypothyroidism; Z93.1 Gastrostomy status; Z79.899 Other long term (current) drug therapy; Z86.73 Personal history of transient ischemic attack (TIA), and cerebral infarction without residual deficits; Z68.25 Body mass index [BMI] 25.0-25.9, adult
CPT/HCPCS: 36415; 71045; 80048; 80053; 82533; 82728; 83540; 83735; 83930; 83935; 84100; 84133; 84300; 84439; 84443; 84484; 84550; 85025; 86886; 86900; 86901; 86920; 87081; 93005; 96360; 96361; 99285; A4649; J1650; J2916; J3475; J7030; J7042; P9016; Q0092

== ENCOUNTER 2019-09-18 23:51 | Emergency (ER) | payer OTHER ==
[~2019-09-18] VITALS: Ht 172.7 cm; Wt 68.0 kg
[~2019-09-18 23:51] MED LIST changes: +FER300L GT; +SODI100076 GT
[2019-09-18 23:53] VITALS: BP 148/88
--- NOTE | 2019-09-18 23:53 | NUR ---
PT BRIGIDO BLS. TAKEN TO BED 7
--- NOTE | 2019-09-19 00:20 | NUR ---
BRIGIDO FROM [facility]. FACILITY REPORTS PATIENT PULLED OUT G-TUBE AND NEEDS IT REPLACED. NO BLEEDING OR TRAUMA TO SITE NOTED. PATIENT CONTRACTED IN ARMS, ABD SOFT AND NON-TENDER. BED LOW LOCKED WITH SIDE RAILS UP ON BOTH SIDES.
--- NOTE | 2019-09-19 00:22 | NUR ---
Dr. Pro examining patient.
--- NOTE | 2019-09-19 01:26 | NUR ---
X-Ray at bedside.
--- NOTE | 2019-09-19 02:27 | NUR ---
PATIENT LAYING SUPINE IN BED. AWAITING RIDE. NO NEEDS ADDRESSED.
--- NOTE | 2019-09-19 04:27 | NUR ---
PATIENT LAYING IN BED. VSS. REPOSITIONED FOR COMFORT.
--- NOTE | 2019-09-19 07:10 | NUR ---
received report from lenora croft. Addendum: 09/19/19 at 0937 by [facility] patient neurologically at baseline.
--- NOTE | 2019-09-19 11:36 | NUR ---
[facility] at bedside for return transport.
--- NOTE | 2019-09-19 11:39 | NUR ---
Patient discharged with v/s stable. Written and verbal after care instructions given and explained. Patient verbalized understanding. Ambulance Transport with to custodial. All questions addressed prior to discharge. Advised to follow up with PMD.
[2019-09-19 11:40] VITALS: BP 142/85
--- NOTE | 2019-09-19 11:41 | NUR ---
CALL TO [facility] SPOKE WITH GRIFFIN GOMEZ INFORMED THAT PT WILL BE EN ROUTE TO THEIR FACILITY. ALL QUESTIONS ANSWERED.
== END 2019-09-19 11:39 ==
LOC: MED 23:51
DX: Z43.1 Encounter for attention to gastrostomy (principal); I63.9 Cerebral infarction, unspecified; R56.9 Unspecified convulsions; Z79.899 Other long term (current) drug therapy; Z79.82 Long term (current) use of aspirin
CPT/HCPCS: 43762; 74240; 99285; Q0092; 99283; 99284

== ENCOUNTER 2019-10-23 03:08 | Inpatient (IN) | payer OTHER ==
[~2019-10-23] VITALS: Ht 172.7 cm; Wt 49.9 kg
[2019-10-23 03:10] VITALS: BP 106/77
[2019-10-23] MEDS ORDERED: NACL 0.9% 500 ML IV SCH (03:10)
[2019-10-23 03:38] LABS: BASOPHILS % (AUTO) 0.5 % (0.0-2.0); EOSINOPHILS # (AUTO) 0.2 K/uL (0-0.4); EOSINOPHILS % (AUTO) 4.1 % (0.0-4.0); HEMATOCRIT 24.2 % (36-52); LYMPHOCYTES # (AUTO) 0.9 K/uL (2.0-11.5); LYMPHOCYTES % (AUTO) 17.7 % (20.5-51.1); MEAN CORPUSCULAR HEMOGLOBIN 29 pg (27-31); MEAN CORPUSCULAR HGB CONC 33 g/dL (33-37); MEAN CORPUSCULAR VOLUME 86.9 fL (80-94); MONOCYTES # (AUTO) 0.4 K/uL (0.8-1.0); MONOCYTES % (AUTO) 8.2 % (1.7-9.3); NEUTROPHILS # (AUTO) 3.7 K/uL (1.8-7.7); NEUTROPHILS % (AUTO) 69.5 % (42.2-75.2); PLATELET COUNT (AUTO) 642 K/uL (140-450); RED BLOOD CELL COUNT(AUTO) 2.79 MIL/uL (4.20-6.10); RED CELL DISTRIBUTION WIDTH 20.4 % (11.6-13.7); WHITE BLOOD COUNT (AUTO) 5.3 K/uL (4.8-10.8)
[2019-10-23 03:51] LABS: ALBUMIN 2.5 g/dL (3.4-5.0); ANION GAP 9.7 (8-16); CARBON DIOXIDE 32.4 mmol/L (21-32); CREATININE 0.7 mg/dL (0.6-1.3); POTASSIUM 5.1 mmol/L (3.5-5.1); TOTAL BILIRUBIN 0.2 mg/dL (0.0-1.0)
[2019-10-23 03:55] LABS: PROTHROMBIN TIME 10.4 secs (10.8-13.4)
[2019-10-23 04:03] LABS: APPEARANCE,URINE CLEAR (CLEAR); BILIRUBIN,URINE NEGATIVE (NEGATIVE); BLOOD, URINE NEGATIVE (NEGATIVE); COLOR,URINE YELLOW (YELLOW); LEUKOCYTE ESTERASE ,URINE TRACE (NEGATIVE); NITRITE, URINE NEGATIVE (NEGATIVE); UGLUCOSE NEGATIVE (NEGATIVE)
[2019-10-23 04:36] LABS: RBC,URINE 0-5 /HPF (0-5); WBC,URINE 0-5 /HPF (0-5)
[2019-10-23] MEDS ORDERED: LACTATED RINGERS 1,000 ML IV SCH (04:36)
[2019-10-23] MEDS ORDERED: LORazepam 2 MG/ML VIAL IVP PRN (04:40)
[2019-10-23] MEDS ORDERED: ONDANSETRON 4 MG/2 ML VIAL IVP PRN (04:40)
[2019-10-23] MEDS ORDERED: KEP500 GT (04:53)
[2019-10-23 07:10] VITALS: BP 120/88
[2019-10-23 08:00] VITALS: BP 111/80
[2019-10-23] MEDS ORDERED: CRUSHER, PILL MC ONE (10:00)
[2019-10-23] MEDS: FERROUS SULFATE 300 MG/5 ML UDC GT SCH (10:02)
[2019-10-23] MEDS: SODIUM CHLORIDE 1 GM TAB GT SCH ×3 (10:03→17:13)
[2019-10-23] MEDS: HYDROcodone/APAP 5/325 MG 1 TAB TAB PO SCH ×3 (10:03→17:13)
[2019-10-23] MEDS: MULTIVITAMIN 1 TAB PO SCH (10:03)
[2019-10-23] MEDS ORDERED: ACETAMINOPHEN 650 MG/20.3 ML UDC GT PRN (10:35)
[2019-10-23 12:00] VITALS: BP 111/80
[2019-10-23] MEDS: POLYMYXIN OP SCH ×4 (12:47→23:34)
[2019-10-23] MEDS: [UNRECOGNIZED DRUG - OTHER] OP SCH ×4 (12:47→23:34)
[2019-10-23] MEDS: NEOMYCIN OP SCH ×4 (12:47→23:34)
[2019-10-23 13:25] LABS: BASOPHILS % (AUTO) 0.6 % (0.0-2.0); EOSINOPHILS % (AUTO) 0.7 % (0.0-4.0); LYMPHOCYTES # (AUTO) 0.8 K/uL (2.0-11.5); LYMPHOCYTES % (AUTO) 16.2 % (20.5-51.1); MEAN CORPUSCULAR HEMOGLOBIN 29 pg (27-31); MEAN CORPUSCULAR HGB CONC 33 g/dL (33-37); MONOCYTES # (AUTO) 0.2 K/uL (0.8-1.0); MONOCYTES % (AUTO) 4.8 % (1.7-9.3); NEUTROPHILS # (AUTO) 3.9 K/uL (1.8-7.7); NEUTROPHILS % (AUTO) 77.7 % (42.2-75.2); PLATELET COUNT (AUTO) 516 K/uL (140-450); RED BLOOD CELL COUNT(AUTO) 2.29 MIL/uL (4.20-6.10); WHITE BLOOD COUNT (AUTO) 5.1 K/uL (4.8-10.8)
[2019-10-23 13:38] LABS: HEMATOCRIT 19.7 % (36-52); HEMOGLOBIN 6.5 g/dL (12.0-18.0)
[2019-10-23 16:00] VITALS: BP 109/73
[2019-10-23] MEDS ORDERED: MAGNESIUM CITRATE 300 ML BTL GT SCH (16:50)
[2019-10-23 20:00] VITALS: BP 116/77
[2019-10-23] MEDS: DOCUSATE 100 MG/10 ML UDC GT SCH (20:36)
[2019-10-23] MEDS: levETIRAcetam 100 MG/ML ORASYR GT SCH (20:36)
[2019-10-23] MEDS: PANTOPRAZOLE 40 MG INJ VIAL IVP SCH (20:36)
[2019-10-24] VITALS: BP 113/79
[2019-10-24 04:00] VITALS: BP 107/71
[2019-10-24] MEDS: NEOMYCIN OP SCH ×6 (04:35→23:54)
[2019-10-24] MEDS: [UNRECOGNIZED DRUG - OTHER] OP SCH ×6 (04:35→23:54)
[2019-10-24] MEDS: POLYMYXIN OP SCH ×6 (04:35→23:54)
[2019-10-24] MEDS ORDERED: SODIUM PHOSPHATE 118 ML ENEM RC PRN (06:55)
[2019-10-24 07:08] LABS: HEMATOCRIT 24.8 % (36-52); HEMOGLOBIN 8.4 g/dL (12.0-18.0)
[2019-10-24 08:00] VITALS: BP 114/69
[2019-10-24] MEDS ORDERED: BOWEL EVACUANT DRINK 4,000 ML PDS PO SCH (08:00)
[2019-10-24] MEDS: SODIUM CHLORIDE 1 GM TAB GT SCH ×3 (08:40→17:02)
[2019-10-24] MEDS: PANTOPRAZOLE 40 MG INJ VIAL IVP SCH (08:40)
[2019-10-24] MEDS: HYDROcodone/APAP 5/325 MG 1 TAB TAB PO SCH ×3 (08:40→17:02)
[2019-10-24] MEDS: levETIRAcetam 100 MG/ML ORASYR GT SCH ×2 (08:41→20:30)
[2019-10-24] MEDS: ASCORBIC ACID 500 MG/5 ML ORASYR GT SCH (08:41)
[2019-10-24] MEDS: DOCUSATE 100 MG/10 ML UDC GT SCH (08:41)
[2019-10-24] MEDS: FERROUS SULFATE 300 MG/5 ML UDC GT SCH (08:41)
[2019-10-24] MEDS: ZINC SULF 220 MG CAP GT SCH (08:41)
[2019-10-24] MEDS: MULTIVITAMIN 1 TAB PO SCH (08:51)
[2019-10-24] MEDS ORDERED: ENOXAPARIN 40 MG/0.4 ML SYR SUBQ SCH (09:00)
[2019-10-24] MEDS ORDERED: MULTIVITAMIN 1 TAB GT SCH (09:00)
[2019-10-24] MEDS ORDERED: ASPIRIN 81 MG TAB.CHEW GT SCH (09:00)
[2019-10-24] MEDS ORDERED: MAGNESIUM CITRATE 300 ML BTL PO SCH (10:00)
[2019-10-24 12:00] VITALS: BP 102/66
[2019-10-24] MEDS ORDERED: fentaNYL 0.05 MG/ML VIAL ONE (13:09)
[2019-10-24] MEDS ORDERED: MIDAZOLAM 2 MG/2 ML VIAL ONE (13:09)
[2019-10-24] MEDS: MIDAZOLAM 2 MG/2 ML VIAL IVP ONE ×2 (14:00→14:48)
[2019-10-24] MEDS: fentaNYL 0.05 MG/ML VIAL IVP ONE ×2 (14:01→14:48)
[2019-10-24] MEDS: DEXT 5% /NACL 0.9% 1,000 ML IV SCH ×2 (14:01→23:54)
[2019-10-24 14:59] LABS: ANION GAP 10.3 (8-16); CARBON DIOXIDE 28.8 mmol/L (21-32); CREATININE 0.6 mg/dL (0.6-1.3); POTASSIUM 4.1 mmol/L (3.5-5.1)
[2019-10-24 16:00] VITALS: BP 109/72
[2019-10-24] MEDS: SENNA 8.6 MG TAB PO SCH (17:02)
[2019-10-24 20:00] VITALS: BP 136/48
[2019-10-24] MEDS: LACTULOSE 20 GM/30 ML UDC PO SCH (20:31)
[2019-10-24] MEDS: POLYETHYLENE GLYCOL 17 GM/PKT PO SCH (20:31)
[2019-10-25] VITALS: BP 137/85
[2019-10-25] MEDS: NEOMYCIN OP SCH ×5 (03:58→22:00)
[2019-10-25] MEDS: [UNRECOGNIZED DRUG - OTHER] OP SCH ×5 (03:58→22:00)
[2019-10-25] MEDS: POLYMYXIN OP SCH ×5 (03:58→22:00)
[2019-10-25 04:00] VITALS: BP 150/88
[2019-10-25 07:20] LABS: FERRITIN 60 ng/mL (30-400); FOLIC ACID > 20.00 ng/mL (>3.0)
[2019-10-25 08:00] VITALS: BP 128/84
[2019-10-25] MEDS ORDERED: MAGNESIUM CITRATE 300 ML BTL PO SCH (08:00)
[2019-10-25] MEDS: levETIRAcetam 100 MG/ML ORASYR GT SCH ×2 (08:11→22:01)
[2019-10-25] MEDS: HYDROcodone/APAP 5/325 MG 1 TAB TAB PO SCH (08:12)
[2019-10-25] MEDS: POLYETHYLENE GLYCOL 17 GM/PKT PO SCH (08:12)
[2019-10-25] MEDS: ASCORBIC ACID 500 MG/5 ML ORASYR GT SCH (08:12)
[2019-10-25] MEDS: LACTULOSE 20 GM/30 ML UDC PO SCH (08:12)
[2019-10-25] MEDS: ZINC SULF 220 MG CAP GT SCH (08:12)
[2019-10-25] MEDS: SENNA 8.6 MG TAB PO SCH (08:13)
[2019-10-25] MEDS: SODIUM CHLORIDE 1 GM TAB GT SCH (08:13)
[2019-10-25] MEDS: MULTIVITAMIN 1 TAB PO SCH (08:13)
[2019-10-25] MEDS: DEXT 5% /NACL 0.9% 1,000 ML IV SCH (09:11)
[2019-10-25 09:27] LABS: ALBUMIN 2.4 g/dL (3.4-5.0); ANION GAP 15.3 (8-16); CARBON DIOXIDE 26.4 mmol/L (21-32); CREATININE 0.7 mg/dL (0.6-1.3); POTASSIUM 3.7 mmol/L (3.5-5.1); TOTAL BILIRUBIN 0.2 mg/dL (0.0-1.0)
[2019-10-25 10:10] LABS: BASOPHILS % (AUTO) 0.6 % (0.0-2.0); EOSINOPHILS % (AUTO) 0.3 % (0.0-4.0); HEMATOCRIT 22.9 % (36-52); LYMPHOCYTES # (AUTO) 0.5 K/uL (2.0-11.5); LYMPHOCYTES % (AUTO) 12.8 % (20.5-51.1); MEAN CORPUSCULAR HEMOGLOBIN 29 pg (27-31); MEAN CORPUSCULAR HGB CONC 32 g/dL (33-37); MEAN CORPUSCULAR VOLUME 90.1 fL (80-94); MONOCYTES # (AUTO) 0.4 K/uL (0.8-1.0); NEUTROPHILS # (AUTO) 3.2 K/uL (1.8-7.7); NEUTROPHILS % (AUTO) 77.3 % (42.2-75.2); PLATELET COUNT (AUTO) 491 K/uL (140-450); RED BLOOD CELL COUNT(AUTO) 2.54 MIL/uL (4.20-6.10); RED CELL DISTRIBUTION WIDTH 18.4 % (11.6-13.7); WHITE BLOOD COUNT (AUTO) 4.2 K/uL (4.8-10.8)
[2019-10-25 10:45] LABS: HEMOGLOBIN 7.4 g/dL (12.0-18.0)
[2019-10-25] MEDS ORDERED: MIDAZOLAM 2 MG/2 ML VIAL ONE ×2 (11:51→11:53)
[2019-10-25] MEDS ORDERED: fentaNYL 0.05 MG/ML VIAL ONE ×2 (11:51)
[2019-10-25 12:00] VITALS: BP 132/72
[2019-10-25] MEDS ORDERED: MIDAZOLAM 2 MG/2 ML VIAL IVP ONE (13:25)
[2019-10-25] MEDS ORDERED: fentaNYL 0.05 MG/ML VIAL IVP ONE (13:25)
[2019-10-25] MEDS ORDERED: POLYETHYLENE GLYCOL 17 GM/PKT PO SCH (13:30)
[2019-10-25] MEDS ORDERED: SENNA 8.6 MG TAB PO SCH (13:30)
[2019-10-25] MEDS ORDERED: LACTULOSE 20 GM/30 ML UDC PO SCH (13:30)
[2019-10-25] MEDS: THERAHONEY GEL 42.5 GM TP SCH (14:12)
[2019-10-25 16:00] VITALS: BP 123/77
[2019-10-25 20:00] VITALS: BP 129/79
[2019-10-25] MEDS: POTASSIUM CHL 10 MEQ/D5-1/2NS 1,000 ML IV SCH (22:01)
[2019-10-26] VITALS: BP 129/80
[2019-10-26] MEDS: NEOMYCIN OP SCH ×7 (01:20→23:09)
[2019-10-26] MEDS: [UNRECOGNIZED DRUG - OTHER] OP SCH ×7 (01:20→23:09)
[2019-10-26] MEDS: POLYMYXIN OP SCH ×7 (01:20→23:09)
[2019-10-26 04:00] VITALS: BP 135/84
[2019-10-26 08:00] VITALS: BP 149/95
[2019-10-26] MEDS: POTASSIUM CHL 10 MEQ/D5-1/2NS 1,000 ML IV SCH ×2 (09:30→22:38)
[2019-10-26 09:36] LABS: BASOPHILS % (AUTO) 0.9 % (0.0-2.0); EOSINOPHILS % (AUTO) 0.6 % (0.0-4.0); HEMATOCRIT 27.4 % (36-52); HEMOGLOBIN 9.1 g/dL (12.0-18.0); LYMPHOCYTES # (AUTO) 0.7 K/uL (2.0-11.5); LYMPHOCYTES % (AUTO) 15.5 % (20.5-51.1); MEAN CORPUSCULAR HEMOGLOBIN 30 pg (27-31); MEAN CORPUSCULAR HGB CONC 33 g/dL (33-37); MEAN CORPUSCULAR VOLUME 91.1 fL (80-94); MONOCYTES # (AUTO) 0.4 K/uL (0.8-1.0); MONOCYTES % (AUTO) 8.7 % (1.7-9.3); NEUTROPHILS # (AUTO) 3.3 K/uL (1.8-7.7); NEUTROPHILS % (AUTO) 74.3 % (42.2-75.2); PLATELET COUNT (AUTO) 508 K/uL (140-450); RED BLOOD CELL COUNT(AUTO) 3.01 MIL/uL (4.20-6.10); RED CELL DISTRIBUTION WIDTH 17.2 % (11.6-13.7); WHITE BLOOD COUNT (AUTO) 4.4 K/uL (4.8-10.8)
[2019-10-26 09:54] LABS: PROTHROMBIN TIME 11.1 secs (10.8-13.4)
[2019-10-26 09:57] LABS: ALBUMIN 2.3 g/dL (3.4-5.0); ANION GAP 6.6 (8-16); CARBON DIOXIDE 31.1 mmol/L (21-32); CREATININE 0.5 mg/dL (0.6-1.3); TOTAL BILIRUBIN 0.3 mg/dL (0.0-1.0)
[2019-10-26] MEDS: ASCORBIC ACID 500 MG/5 ML ORASYR GT SCH (09:57)
[2019-10-26] MEDS: MULTIVITAMIN 1 TAB PO SCH (09:57)
[2019-10-26] MEDS: levETIRAcetam 100 MG/ML ORASYR GT SCH ×2 (09:58→20:03)
[2019-10-26] MEDS: ZINC SULF 220 MG CAP GT SCH (09:58)
[2019-10-26 10:05] LABS: POTASSIUM 2.7 mmol/L (3.5-5.1)
[2019-10-26 12:00] VITALS: BP 145/93
[2019-10-26] MEDS ORDERED: TPN PER PHARMACY MC PRN (13:40)
[2019-10-26] MEDS: POTASSIUM CHLORIDE 20% 40 MEQ/15 ML UDC GT SCH ×3 (14:34→20:03)
[2019-10-26 16:00] VITALS: BP 136/86
[2019-10-26] MEDS: THERAHONEY GEL 42.5 GM TP SCH (16:09)
[2019-10-26 20:00] VITALS: BP 144/92
[2019-10-27] VITALS: BP 118/69
[2019-10-27] MEDS: [UNRECOGNIZED DRUG - OTHER] OP SCH ×5 (03:00→20:35)
[2019-10-27] MEDS: POLYMYXIN OP SCH ×5 (03:00→20:35)
[2019-10-27] MEDS: NEOMYCIN OP SCH ×5 (03:00→20:35)
[2019-10-27 04:00] VITALS: BP 127/60
[2019-10-27 07:33] LABS: BASOPHILS # (AUTO) 0.2 K/uL (0.00-0.22); BASOPHILS % (AUTO) 4.9 % (0.0-2.0); EOSINOPHILS # (AUTO) 0.1 K/uL (0-0.4); EOSINOPHILS % (AUTO) 1.3 % (0.0-4.0); HEMATOCRIT 29.7 % (36-52); HEMOGLOBIN 9.9 g/dL (12.0-18.0); LYMPHOCYTES # (AUTO) 0.7 K/uL (2.0-11.5); MEAN CORPUSCULAR HEMOGLOBIN 31 pg (27-31); MEAN CORPUSCULAR HGB CONC 33 g/dL (33-37); MEAN CORPUSCULAR VOLUME 91.5 fL (80-94); MONOCYTES # (AUTO) 0.3 K/uL (0.8-1.0); MONOCYTES % (AUTO) 7.2 % (1.7-9.3); NEUTROPHILS # (AUTO) 3.4 K/uL (1.8-7.7); NEUTROPHILS % (AUTO) 72.6 % (42.2-75.2); PLATELET COUNT (AUTO) 445 K/uL (140-450); RED BLOOD CELL COUNT(AUTO) 3.25 MIL/uL (4.20-6.10); RED CELL DISTRIBUTION WIDTH 16.5 % (11.6-13.7); WHITE BLOOD COUNT (AUTO) 4.7 K/uL (4.8-10.8)
[2019-10-27 07:34] LABS: ANION GAP 6.4 (8-16); CARBON DIOXIDE 29.5 mmol/L (21-32); CREATININE 0.5 mg/dL (0.6-1.3); POTASSIUM 3.9 mmol/L (3.5-5.1); TOTAL BILIRUBIN 0.3 mg/dL (0.0-1.0)
[2019-10-27 07:36] LABS: PHOSPHORUS 2.2 mg/dL (2.5-4.9)
[2019-10-27 08:00] VITALS: BP 153/88
[2019-10-27] MEDS: levETIRAcetam 100 MG/ML ORASYR GT SCH ×2 (09:38→22:27)
[2019-10-27] MEDS: ASCORBIC ACID 500 MG/5 ML ORASYR GT SCH (09:38)
[2019-10-27] MEDS: ZINC SULF 220 MG CAP GT SCH (09:39)
[2019-10-27] MEDS: MULTIVITAMIN 1 TAB PO SCH (09:46)
[2019-10-27] MEDS ORDERED: POTASSIUM PHOSPHATE 15 MM in NACL 0.9% 250 ML IV SCH (10:00)
[2019-10-27 12:00] VITALS: BP 137/84
[2019-10-27] MEDS: POTASSIUM CHL 10 MEQ/D5-1/2NS 1,000 ML IV SCH (12:10)
[2019-10-27] MEDS: THERAHONEY GEL 42.5 GM TP SCH (13:31)
[2019-10-27 16:00] VITALS: BP 143/82
[2019-10-27 20:00] VITALS: BP 142/81
[2019-10-27] MEDS: MULTIVITAMIN-12 10 ML in DEXTROSE 50% 600 ML, AMINO ACIDS 8.5% 500 ML, FAT EMULSION 20%... IV SCH ×4 (20:35)
[2019-10-27] MEDS: MAGNESIUM CITRATE 300 ML BTL GT SCH (22:45)
[2019-10-28] VITALS: BP 124/93
[2019-10-28] MEDS ORDERED: INSULIN LISPRO SLIDING SCALE 100 UNITS/ML VIAL SUBQ PRN
[2019-10-28] MEDS: POTASSIUM CHL 10 MEQ/D5-1/2NS 1,000 ML IV SCH ×2 (01:30→13:54)
[2019-10-28 04:00] VITALS: BP 136/90
[2019-10-28] MEDS: POLYMYXIN OP SCH ×6 (04:37→21:04)
[2019-10-28] MEDS: [UNRECOGNIZED DRUG - OTHER] OP SCH ×6 (04:37→21:04)
[2019-10-28] MEDS: NEOMYCIN OP SCH ×6 (04:37→21:04)
[2019-10-28] MEDS ORDERED: DEXTROSE 50% 50 ML SYR IVP ONE (05:39)
[2019-10-28] MEDS: MAGNESIUM CITRATE 300 ML BTL GT SCH (05:44)
[2019-10-28] MEDS: BLOOD GLUCOSE MONITORING 1 DEV DEV MC SCH ×4 (05:46→18:00)
[2019-10-28 07:19] LABS: BASOPHILS % (AUTO) 0.8 % (0.0-2.0); EOSINOPHILS # (AUTO) 0.1 K/uL (0-0.4); EOSINOPHILS % (AUTO) 3.5 % (0.0-4.0); HEMATOCRIT 28.5 % (36-52); HEMOGLOBIN 9.3 g/dL (12.0-18.0); LYMPHOCYTES # (AUTO) 0.7 K/uL (2.0-11.5); LYMPHOCYTES % (AUTO) 19.1 % (20.5-51.1); MEAN CORPUSCULAR HEMOGLOBIN 31 pg (27-31); MEAN CORPUSCULAR HGB CONC 33 g/dL (33-37); MEAN CORPUSCULAR VOLUME 94.8 fL (80-94); MONOCYTES # (AUTO) 0.3 K/uL (0.8-1.0); MONOCYTES % (AUTO) 7.8 % (1.7-9.3); NEUTROPHILS # (AUTO) 2.5 K/uL (1.8-7.7); NEUTROPHILS % (AUTO) 68.8 % (42.2-75.2); PLATELET COUNT (AUTO) 394 K/uL (140-450); RED CELL DISTRIBUTION WIDTH 16.6 % (11.6-13.7); WHITE BLOOD COUNT (AUTO) 3.6 K/uL (4.8-10.8)
[2019-10-28 08:00] VITALS: BP 129/85
[2019-10-28 08:42] LABS: PHOSPHORUS 5.3 mg/dL (2.5-4.9)
[2019-10-28] MEDS: levETIRAcetam 100 MG/ML ORASYR GT SCH ×2 (08:52→21:09)
[2019-10-28] MEDS: ASCORBIC ACID 500 MG/5 ML ORASYR GT SCH (08:53)
[2019-10-28] MEDS: ZINC SULF 220 MG CAP GT SCH (08:53)
[2019-10-28 08:57] LABS: ANION GAP 13.8 (8-16); CARBON DIOXIDE 23.7 mmol/L (21-32); CREATININE 0.6 mg/dL (0.6-1.3); POTASSIUM 4.5 mmol/L (3.5-5.1); TOTAL BILIRUBIN 0.3 mg/dL (0.0-1.0)
[2019-10-28 09:25] LABS: ALBUMIN 1.9 g/dL (3.4-5.0)
[2019-10-28 12:00] VITALS: BP 123/70
[2019-10-28] MEDS: DEXTROSE 50% 50 ML SYR IVP PRN (13:45)
[2019-10-28] MEDS: THERAHONEY GEL 42.5 GM TP SCH (13:46)
[2019-10-28] MEDS ORDERED: NEOSTIGMINE 1:1000 10 MG/10 ML VIAL ONE (15:57)
[2019-10-28] MEDS ORDERED: PROPOFOL 200 MG/20 ML VIAL IV ONE (15:57)
[2019-10-28] MEDS ORDERED: ONDANSETRON 4 MG/2 ML VIAL ONE (15:57)
[2019-10-28] MEDS ORDERED: HYDROmorphone PFS 2 MG/ML SYR ONE (15:57)
[2019-10-28] MEDS ORDERED: DESFLURANE 240 ML BTL INH ONE (15:57)
[2019-10-28] MEDS ORDERED: SUCCINYLCHOLINE CHLORIDE 200 MG/10 ML VIAL IVP ONE (15:57)
[2019-10-28] MEDS ORDERED: ceFAZolin 1,000 MG VIAL ONE (15:57)
[2019-10-28] MEDS ORDERED: fentaNYL 0.05 MG/ML VIAL ONE (15:57)
[2019-10-28] MEDS ORDERED: GLYCOPYRROLATE 0.2 MG/ML VIAL ONE (15:57)
[2019-10-28] MEDS ORDERED: ROCURONIUM 50 MG/5 ML VIAL IV ONE (15:57)
[2019-10-28] MEDS ORDERED: DEXAMETHASONE 4 MG/ML VIAL ONE (15:57)
[2019-10-28] MEDS ORDERED: metroNIDAZOLE 500 MG/NS PREMIX 100 ML IV ONE (16:24)
[2019-10-28] MEDS ORDERED: HYDROmorphone 1 MG/ML AMP IVP PRN ×2 (16:40→18:05)
[2019-10-28] MEDS ORDERED: ONDANSETRON 4 MG/2 ML VIAL IVP PRN (16:40)
[2019-10-28] MEDS ORDERED: HYDROcodone/APAP 5/325 MG 1 TAB TAB PO PRN (18:05)
[2019-10-28] MEDS ORDERED: MORPHINE SULFATE 4 MG/ML SYR IV PRN (18:05)
[2019-10-28] MEDS ORDERED: MORPHINE SULFATE 2 MG/ML SYR IVP PRN (18:05)
[2019-10-28 20:00] VITALS: BP 137/80
[2019-10-28] MEDS: MULTIVITAMIN-12 10 ML in DEXTROSE 50% 600 ML, AMINO ACIDS 8.5% 500 ML, FAT EMULSION 20%... IV SCH ×4 (20:00)
[2019-10-28] MEDS ORDERED: MULTIVITAMIN-12 10 ML in DEXTROSE 50% 600 ML, AMINO ACIDS 8.5% 500 ML, FAT EMULSION 20%... IV SCH ×4 (20:00)
[2019-10-29] VITALS: BP 124/86
[2019-10-29 04:00] VITALS: BP 132/83
[2019-10-29] MEDS: POTASSIUM CHL 10 MEQ/D5-1/2NS 1,000 ML IV SCH ×2 (04:10→17:30)
[2019-10-29] MEDS: [UNRECOGNIZED DRUG - OTHER] OP SCH ×6 (05:09→20:19)
[2019-10-29] MEDS: NEOMYCIN OP SCH ×6 (05:09→20:19)
[2019-10-29] MEDS: POLYMYXIN OP SCH ×6 (05:09→20:19)
[2019-10-29] MEDS: BLOOD GLUCOSE MONITORING 1 DEV DEV MC SCH ×4 (06:44→18:14)
[2019-10-29] MEDS: DEXTROSE 50% 50 ML SYR IVP PRN (06:45)
[2019-10-29 07:40] LABS: BASOPHILS % (AUTO) 0.3 % (0.0-2.0); EOSINOPHILS % (AUTO) 0.1 % (0.0-4.0); HEMATOCRIT 25.1 % (36-52); HEMOGLOBIN 8.5 g/dL (12.0-18.0); LYMPHOCYTES # (AUTO) 0.5 K/uL (2.0-11.5); MEAN CORPUSCULAR HEMOGLOBIN 31 pg (27-31); MEAN CORPUSCULAR HGB CONC 34 g/dL (33-37); MEAN CORPUSCULAR VOLUME 91.3 fL (80-94); MONOCYTES # (AUTO) 0.3 K/uL (0.8-1.0); NEUTROPHILS # (AUTO) 6.1 K/uL (1.8-7.7); NEUTROPHILS % (AUTO) 87.6 % (42.2-75.2); PLATELET COUNT (AUTO) 401 K/uL (140-450); RED BLOOD CELL COUNT(AUTO) 2.75 MIL/uL (4.20-6.10); RED CELL DISTRIBUTION WIDTH 16.7 % (11.6-13.7)
[2019-10-29 08:00] VITALS: BP 127/80
[2019-10-29 08:01] LABS: ALBUMIN 1.9 g/dL (3.4-5.0); ANION GAP 10.8 (8-16); CARBON DIOXIDE 26.1 mmol/L (21-32); CREATININE 0.6 mg/dL (0.6-1.3); POTASSIUM 3.9 mmol/L (3.5-5.1); TOTAL BILIRUBIN 0.2 mg/dL (0.0-1.0)
[2019-10-29 08:06] LABS: MAGNESIUM 1.7 mg/dL (1.8-2.4); PHOSPHORUS 3.4 mg/dL (2.5-4.9)
[2019-10-29] MEDS: ENOXAPARIN 30 MG/0.3 ML SYR SUBQ SCH (10:19)
[2019-10-29] MEDS: ZINC SULF 220 MG CAP GT SCH (10:20)
[2019-10-29] MEDS: ASCORBIC ACID 500 MG/5 ML ORASYR GT SCH (10:21)
[2019-10-29] MEDS: levETIRAcetam 100 MG/ML ORASYR GT SCH ×2 (10:21→20:19)
[2019-10-29 12:00] VITALS: BP 130/79
[2019-10-29] MEDS: THERAHONEY GEL 42.5 GM TP SCH (14:56)
[2019-10-29 16:00] VITALS: BP 111/80
[2019-10-29 20:00] VITALS: BP 111/70
[2019-10-29] MEDS ORDERED: MULTIVITAMIN-12 10 ML in DEXTROSE 50% 720 ML, AMINO ACIDS 8.5% 570 ML, FAT EMULSION 20%... IV SCH ×4 (20:00)
[2019-10-30] VITALS: BP 109/73
[2019-10-30] MEDS: [UNRECOGNIZED DRUG - OTHER] OP SCH ×6 (00:05→20:11)
[2019-10-30] MEDS: POLYMYXIN OP SCH ×6 (00:05→20:11)
[2019-10-30] MEDS: NEOMYCIN OP SCH ×6 (00:05→20:11)
[2019-10-30] MEDS: BLOOD GLUCOSE MONITORING 1 DEV DEV MC SCH ×3 (00:06→11:33)
[2019-10-30 04:06] VITALS: BP 114/69
[2019-10-30 07:15] LABS: BASOPHILS % (AUTO) 0.5 % (0.0-2.0); EOSINOPHILS % (AUTO) 0.7 % (0.0-4.0); HEMATOCRIT 20.5 % (36-52); LYMPHOCYTES # (AUTO) 0.6 K/uL (2.0-11.5); LYMPHOCYTES % (AUTO) 11.3 % (20.5-51.1); MEAN CORPUSCULAR HEMOGLOBIN 31 pg (27-31); MEAN CORPUSCULAR HGB CONC 34 g/dL (33-37); MONOCYTES # (AUTO) 0.2 K/uL (0.8-1.0); MONOCYTES % (AUTO) 3.8 % (1.7-9.3); NEUTROPHILS # (AUTO) 4.4 K/uL (1.8-7.7); NEUTROPHILS % (AUTO) 83.7 % (42.2-75.2); PLATELET COUNT (AUTO) 292 K/uL (140-450); RED BLOOD CELL COUNT(AUTO) 2.26 MIL/uL (4.20-6.10); RED CELL DISTRIBUTION WIDTH 16.5 % (11.6-13.7); WHITE BLOOD COUNT (AUTO) 5.2 K/uL (4.8-10.8)
[2019-10-30 07:51] LABS: ALBUMIN 1.8 g/dL (3.4-5.0); ANION GAP 10.5 (8-16); CARBON DIOXIDE 25.5 mmol/L (21-32); CREATININE 0.5 mg/dL (0.6-1.3); TOTAL BILIRUBIN 0.2 mg/dL (0.0-1.0)
[2019-10-30 07:57] LABS: PHOSPHORUS 2.7 mg/dL (2.5-4.9)
[2019-10-30 08:00] VITALS: BP 117/80
[2019-10-30 08:18] LABS: MAGNESIUM 1.5 mg/dL (1.8-2.4)
[2019-10-30] MEDS: ZINC SULF 220 MG CAP GT SCH (08:39)
[2019-10-30] MEDS: levETIRAcetam 100 MG/ML ORASYR GT SCH ×2 (08:39→21:27)
[2019-10-30] MEDS: ASCORBIC ACID 500 MG/5 ML ORASYR GT SCH (08:39)
[2019-10-30] MEDS: ENOXAPARIN 30 MG/0.3 ML SYR SUBQ SCH (08:51)
[2019-10-30 12:00] VITALS: BP 118/73
[2019-10-30] MEDS: GAUZE TP SCH (13:00)
[2019-10-30] MEDS: THERAHONEY GEL 42.5 GM TP SCH (13:30)
[2019-10-30 16:00] VITALS: BP 105/70
[2019-10-30 20:00] VITALS: BP 135/68
[2019-10-31] VITALS: BP 126/85
[2019-10-31] MEDS: [UNRECOGNIZED DRUG - OTHER] OP SCH ×6 (00:18→19:57)
[2019-10-31] MEDS: NEOMYCIN OP SCH ×6 (00:18→19:57)
[2019-10-31] MEDS: POLYMYXIN OP SCH ×6 (00:18→19:57)
[2019-10-31 04:00] VITALS: BP 112/73
[2019-10-31 07:36] LABS: BASOPHILS % (AUTO) 0.5 % (0.0-2.0); EOSINOPHILS # (AUTO) 0.2 K/uL (0-0.4); EOSINOPHILS % (AUTO) 3.5 % (0.0-4.0); HEMATOCRIT 24.7 % (36-52); HEMOGLOBIN 8.5 g/dL (12.0-18.0); LYMPHOCYTES # (AUTO) 0.5 K/uL (2.0-11.5); LYMPHOCYTES % (AUTO) 8.7 % (20.5-51.1); MEAN CORPUSCULAR HEMOGLOBIN 30 pg (27-31); MEAN CORPUSCULAR HGB CONC 34 g/dL (33-37); MEAN CORPUSCULAR VOLUME 88.6 fL (80-94); MONOCYTES # (AUTO) 0.4 K/uL (0.8-1.0); NEUTROPHILS # (AUTO) 4.2 K/uL (1.8-7.7); NEUTROPHILS % (AUTO) 80.3 % (42.2-75.2); PLATELET COUNT (AUTO) 268 K/uL (140-450); RED BLOOD CELL COUNT(AUTO) 2.78 MIL/uL (4.20-6.10); RED CELL DISTRIBUTION WIDTH 15.9 % (11.6-13.7); WHITE BLOOD COUNT (AUTO) 5.2 K/uL (4.8-10.8)
[2019-10-31 07:50] LABS: ALBUMIN 1.7 g/dL (3.4-5.0); ANION GAP 12.7 (8-16); CARBON DIOXIDE 22.8 mmol/L (21-32); CREATININE 0.5 mg/dL (0.6-1.3); TOTAL BILIRUBIN 0.3 mg/dL (0.0-1.0)
[2019-10-31 08:00] VITALS: BP 113/83
[2019-10-31] MEDS: levETIRAcetam 100 MG/ML ORASYR GT SCH ×2 (08:27→21:58)
[2019-10-31] MEDS: ASCORBIC ACID 500 MG/5 ML ORASYR GT SCH (08:28)
[2019-10-31] MEDS: ZINC SULF 220 MG CAP GT SCH (08:28)
[2019-10-31] MEDS: ENOXAPARIN 30 MG/0.3 ML SYR SUBQ SCH (08:36)
[2019-10-31 08:55] LABS: POTASSIUM 2.5 mmol/L (3.5-5.1)
[2019-10-31] MEDS ORDERED: POTASSIUM CHLORIDE 10 MEQ TABER PO SCH (09:05)
[2019-10-31] MEDS ORDERED: KCL 20 MEQ/WATER INJ PREMIX 100 ML IV SCH (09:15)
[2019-10-31] MEDS ORDERED: POTASSIUM CHLORIDE 20% 40 MEQ/15 ML UDC GT SCH ×3 (11:00→16:30)
[2019-10-31 12:00] VITALS: BP 135/86
[2019-10-31] MEDS: GAUZE TP SCH (13:00)
[2019-10-31] MEDS: THERAHONEY GEL 42.5 GM TP SCH (13:00)
[2019-10-31 15:55] LABS: ANION GAP 9.7 (8-16); CARBON DIOXIDE 26.7 mmol/L (21-32); CREATININE 0.5 mg/dL (0.6-1.3); POTASSIUM 3.4 mmol/L (3.5-5.1)
[2019-10-31 16:00] VITALS: BP 120/83
[2019-10-31] MEDS ORDERED: MAG SULF 2000 MG/WATER PREMIX 50 ML IV SCH ×2 (16:30→18:30)
[2019-10-31 20:00] VITALS: BP 150/90
[2019-10-31] MEDS: FERROUS SULFATE 300 MG/5 ML UDC GT SCH (21:59)
[2019-11-01] VITALS: BP 128/95
[2019-11-01] MEDS: NEOMYCIN OP SCH ×6 (00:51→19:49)
[2019-11-01] MEDS: POLYMYXIN OP SCH ×6 (00:51→19:49)
[2019-11-01] MEDS: [UNRECOGNIZED DRUG - OTHER] OP SCH ×6 (00:51→19:49)
[2019-11-01 04:00] VITALS: BP 125/87
[2019-11-01 08:00] VITALS: BP 134/90
[2019-11-01] MEDS: ASCORBIC ACID 500 MG/5 ML ORASYR GT SCH (10:18)
[2019-11-01] MEDS: FERROUS SULFATE 300 MG/5 ML UDC GT SCH ×2 (10:18→20:03)
[2019-11-01] MEDS: ZINC SULF 220 MG CAP GT SCH (10:19)
[2019-11-01] MEDS: POTASSIUM CHLORIDE 20% 40 MEQ/15 ML UDC GT SCH (10:19)
[2019-11-01 10:20] LABS: BASOPHILS % (AUTO) 0.2 % (0.0-2.0); EOSINOPHILS # (AUTO) 0.3 K/uL (0-0.4); HEMATOCRIT 26.6 % (36-52); HEMOGLOBIN 9.1 g/dL (12.0-18.0); LYMPHOCYTES # (AUTO) 0.5 K/uL (2.0-11.5); LYMPHOCYTES % (AUTO) 7.9 % (20.5-51.1); MEAN CORPUSCULAR HEMOGLOBIN 30 pg (27-31); MEAN CORPUSCULAR HGB CONC 34 g/dL (33-37); MONOCYTES # (AUTO) 0.5 K/uL (0.8-1.0); MONOCYTES % (AUTO) 7.9 % (1.7-9.3); NEUTROPHILS # (AUTO) 5.1 K/uL (1.8-7.7); PLATELET COUNT (AUTO) 328 K/uL (140-450); RED BLOOD CELL COUNT(AUTO) 3.02 MIL/uL (4.20-6.10); WHITE BLOOD COUNT (AUTO) 6.4 K/uL (4.8-10.8)
[2019-11-01] MEDS: levETIRAcetam 100 MG/ML ORASYR GT SCH ×2 (10:25→20:03)
[2019-11-01 10:31] LABS: ALBUMIN 1.8 g/dL (3.4-5.0); ANION GAP 8.6 (8-16); CARBON DIOXIDE 27.4 mmol/L (21-32); CREATININE 0.5 mg/dL (0.6-1.3); TOTAL BILIRUBIN 0.2 mg/dL (0.0-1.0)
[2019-11-01 12:00] VITALS: BP 131/86
[2019-11-01] MEDS ORDERED: POTASSIUM CHLORIDE 20% 40 MEQ/15 ML UDC GT SCH (12:18)
[2019-11-01] MEDS ORDERED: MAG SULF 2000 MG/WATER PREMIX 50 ML IV SCH (12:30)
[2019-11-01] MEDS: GAUZE TP SCH (13:00)
[2019-11-01] MEDS: THERAHONEY GEL 42.5 GM TP SCH (14:32)
[2019-11-01 16:00] VITALS: BP 120/84
[2019-11-01 17:06] LABS: ANION GAP 6.4 (8-16); CARBON DIOXIDE 24.9 mmol/L (21-32); CREATININE 0.5 mg/dL (0.6-1.3); POTASSIUM 4.3 mmol/L (3.5-5.1)
[2019-11-01] MEDS ORDERED: COMMUNICATION ORDER MC ONE (18:15)
[2019-11-01] MEDS ORDERED: ED NON STOCK ORDER 1 EA MISC MC ONE (18:15)
[2019-11-01] MEDS: NACL 0.9% 1,000 ML IV SCH (18:40)
[2019-11-02] MEDS: POLYMYXIN OP SCH ×6 (00:22→20:50)
[2019-11-02] MEDS: [UNRECOGNIZED DRUG - OTHER] OP SCH ×6 (00:22→20:50)
[2019-11-02] MEDS: NEOMYCIN OP SCH ×6 (00:22→20:50)
[2019-11-02] MEDS: NACL 0.9% 1,000 ML IV SCH ×3 (06:50→21:10)
[2019-11-02 07:42] LABS: BASOPHILS % (AUTO) 0.2 % (0.0-2.0); EOSINOPHILS # (AUTO) 0.2 K/uL (0-0.4); EOSINOPHILS % (AUTO) 3.7 % (0.0-4.0); HEMATOCRIT 26.3 % (36-52); HEMOGLOBIN 9.1 g/dL (12.0-18.0); LYMPHOCYTES # (AUTO) 0.6 K/uL (2.0-11.5); LYMPHOCYTES % (AUTO) 9.4 % (20.5-51.1); MEAN CORPUSCULAR HEMOGLOBIN 30 pg (27-31); MEAN CORPUSCULAR HGB CONC 34 g/dL (33-37); MEAN CORPUSCULAR VOLUME 87.6 fL (80-94); MONOCYTES # (AUTO) 0.5 K/uL (0.8-1.0); MONOCYTES % (AUTO) 8.4 % (1.7-9.3); NEUTROPHILS # (AUTO) 5.1 K/uL (1.8-7.7); NEUTROPHILS % (AUTO) 78.3 % (42.2-75.2); PLATELET COUNT (AUTO) 409 K/uL (140-450); RED BLOOD CELL COUNT(AUTO) 3.01 MIL/uL (4.20-6.10); RED CELL DISTRIBUTION WIDTH 15.6 % (11.6-13.7); WHITE BLOOD COUNT (AUTO) 6.5 K/uL (4.8-10.8)
[2019-11-02 07:53] LABS: ALBUMIN 1.9 g/dL (3.4-5.0); ANION GAP 9.4 (8-16); CARBON DIOXIDE 27.3 mmol/L (21-32); CREATININE 0.5 mg/dL (0.6-1.3); POTASSIUM 3.7 mmol/L (3.5-5.1); TOTAL BILIRUBIN 0.2 mg/dL (0.0-1.0)
[2019-11-02 07:54] VITALS: BP 105/83
[2019-11-02] MEDS: ZINC SULF 220 MG CAP GT SCH (09:34)
[2019-11-02] MEDS: FERROUS SULFATE 300 MG/5 ML UDC GT SCH ×2 (09:34→20:49)
[2019-11-02] MEDS: ASCORBIC ACID 500 MG/5 ML ORASYR GT SCH (09:34)
[2019-11-02] MEDS: POTASSIUM CHLORIDE 20% 40 MEQ/15 ML UDC GT SCH (09:35)
[2019-11-02] MEDS: levETIRAcetam 100 MG/ML ORASYR GT SCH ×2 (09:35→20:49)
[2019-11-02] MEDS: GAUZE TP SCH (13:41)
[2019-11-02] MEDS: THERAHONEY GEL 42.5 GM TP SCH (13:41)
[2019-11-02] MEDS ORDERED: FUROSEMIDE 20 MG/2 ML VIAL IVP SCH (14:00)
[2019-11-02 16:00] VITALS: BP 111/74
[2019-11-02 20:00] VITALS: BP 100/69
[2019-11-03] MEDS: NEOMYCIN OP SCH ×6 (00:27→21:02)
[2019-11-03] MEDS: POLYMYXIN OP SCH ×6 (00:27→21:02)
[2019-11-03] MEDS: [UNRECOGNIZED DRUG - OTHER] OP SCH ×6 (00:27→21:02)
[2019-11-03 08:00] VITALS: BP 112/72
[2019-11-03] MEDS: FERROUS SULFATE 300 MG/5 ML UDC GT SCH ×2 (09:54→21:02)
[2019-11-03] MEDS: levETIRAcetam 100 MG/ML ORASYR GT SCH ×2 (09:55→21:02)
[2019-11-03] MEDS: ASCORBIC ACID 500 MG/5 ML ORASYR GT SCH (09:55)
[2019-11-03] MEDS: POTASSIUM CHLORIDE 20% 40 MEQ/15 ML UDC GT SCH (09:55)
[2019-11-03] MEDS: ZINC SULF 220 MG CAP GT SCH (09:55)
[2019-11-03] MEDS: NACL 0.9% 1,000 ML IV SCH ×3 (10:00→23:27)
[2019-11-03] MEDS ORDERED: MAGNESIUM OXIDE 400 MG TAB GT SCH (11:00)
[2019-11-03 11:17] LABS: BASOPHILS % (AUTO) 0.5 % (0.0-2.0); EOSINOPHILS # (AUTO) 0.3 K/uL (0-0.4); HEMATOCRIT 25.7 % (36-52); HEMOGLOBIN 8.6 g/dL (12.0-18.0); LYMPHOCYTES # (AUTO) 0.4 K/uL (2.0-11.5); MEAN CORPUSCULAR HEMOGLOBIN 30 pg (27-31); MEAN CORPUSCULAR HGB CONC 34 g/dL (33-37); MONOCYTES # (AUTO) 0.5 K/uL (0.8-1.0); MONOCYTES % (AUTO) 6.5 % (1.7-9.3); NEUTROPHILS # (AUTO) 6.5 K/uL (1.8-7.7); PLATELET COUNT (AUTO) 435 K/uL (140-450); RED BLOOD CELL COUNT(AUTO) 2.89 MIL/uL (4.20-6.10); RED CELL DISTRIBUTION WIDTH 15.7 % (11.6-13.7); WHITE BLOOD COUNT (AUTO) 7.8 K/uL (4.8-10.8)
[2019-11-03 11:46] LABS: LYMPHOCYTES % (AUTO) 5.4 % (20.5-51.1); NEUTROPHILS % (AUTO) 83.6 % (42.2-75.2)
[2019-11-03 11:48] LABS: ANION GAP 10.9 (8-16); CARBON DIOXIDE 24.4 mmol/L (21-32); CREATININE 0.4 mg/dL (0.6-1.3); POTASSIUM 3.3 mmol/L (3.5-5.1); TOTAL BILIRUBIN 0.2 mg/dL (0.0-1.0)
[2019-11-03] MEDS: THERAHONEY GEL 42.5 GM TP SCH (13:00)
[2019-11-03] MEDS: GAUZE TP SCH (13:00)
[2019-11-03 13:09] LABS: ALBUMIN 1.7 g/dL (3.4-5.0)
[2019-11-03 16:00] VITALS: BP 116/74
[2019-11-03] MEDS: SODIUM CHLORIDE 1 GM TAB PO SCH (21:03)
[2019-11-03] MEDS ORDERED: CRUSHER, PILL MC ONE (21:05)
[2019-11-04] VITALS: BP 130/76
[2019-11-04] MEDS: NEOMYCIN OP SCH ×5 (00:39→16:21)
[2019-11-04] MEDS: POLYMYXIN OP SCH ×5 (00:39→16:21)
[2019-11-04] MEDS: [UNRECOGNIZED DRUG - OTHER] OP SCH ×5 (00:39→16:21)
[2019-11-04 08:00] VITALS: BP 129/77
[2019-11-04] MEDS: FERROUS SULFATE 300 MG/5 ML UDC GT SCH (08:09)
[2019-11-04] MEDS: levETIRAcetam 100 MG/ML ORASYR GT SCH (08:09)
[2019-11-04] MEDS: POTASSIUM CHLORIDE 20% 40 MEQ/15 ML UDC GT SCH (08:10)
[2019-11-04] MEDS: ZINC SULF 220 MG CAP GT SCH (08:11)
[2019-11-04] MEDS: SODIUM CHLORIDE 1 GM TAB PO SCH (08:11)
[2019-11-04] MEDS: ASCORBIC ACID 500 MG/5 ML ORASYR GT SCH (08:11)
[2019-11-04 08:40] LABS: BASOPHILS % (AUTO) 0.6 % (0.0-2.0); EOSINOPHILS # (AUTO) 0.5 K/uL (0-0.4); EOSINOPHILS % (AUTO) 6.1 % (0.0-4.0); HEMATOCRIT 22.8 % (36-52); HEMOGLOBIN 7.8 g/dL (12.0-18.0); LYMPHOCYTES # (AUTO) 0.6 K/uL (2.0-11.5); LYMPHOCYTES % (AUTO) 7.2 % (20.5-51.1); MEAN CORPUSCULAR HEMOGLOBIN 30 pg (27-31); MEAN CORPUSCULAR HGB CONC 34 g/dL (33-37); MEAN CORPUSCULAR VOLUME 88.6 fL (80-94); MONOCYTES # (AUTO) 0.6 K/uL (0.8-1.0); MONOCYTES % (AUTO) 7.2 % (1.7-9.3); NEUTROPHILS # (AUTO) 6.2 K/uL (1.8-7.7); NEUTROPHILS % (AUTO) 78.9 % (42.2-75.2); PLATELET COUNT (AUTO) 389 K/uL (140-450); RED BLOOD CELL COUNT(AUTO) 2.57 MIL/uL (4.20-6.10); RED CELL DISTRIBUTION WIDTH 15.3 % (11.6-13.7); WHITE BLOOD COUNT (AUTO) 7.9 K/uL (4.8-10.8)
[2019-11-04] MEDS: NACL 0.9% 1,000 ML IV SCH ×2 (08:50→10:35)
[2019-11-04 12:03] LABS: ALBUMIN 1.5 g/dL (3.4-5.0); ANION GAP 11.6 (8-16); CARBON DIOXIDE 21.9 mmol/L (21-32); CREATININE 0.3 mg/dL (0.6-1.3); POTASSIUM 3.5 mmol/L (3.5-5.1); TOTAL BILIRUBIN 0.2 mg/dL (0.0-1.0)
[2019-11-04] MEDS: GAUZE TP SCH (13:56)
[2019-11-04] MEDS: THERAHONEY GEL 42.5 GM TP SCH (13:59)
[2019-11-04] MEDS ORDERED: MAG SULF 2000 MG/WATER PREMIX 50 ML IV SCH (14:00)
[2019-11-04] MEDS ORDERED: MAGN400T7 GT (14:52)
[2019-11-04 16:58] VITALS: BP 129/77
== END 2019-11-04 19:40 | DRG 231 ==
LOC: MED 03:08 → MTU 04:38 → OBSVTOIN 10-24 14:37 → MTU 11-02 09:05
PROVIDERS: ADMIT Internal Medicine Pulmonary Disease; ATTEND Internal Medicine Pulmonary Disease
PROC: 0DJ08ZZ Inspection of Upper Intestinal Tract, Via Natural or Artificial Opening Endoscopic (ICD-10-PCS; principal; 2019-10-24 13:00)
PROC: 0DBH8ZX Excision of Cecum, Via Natural or Artificial Opening Endoscopic, Diagnostic (ICD-10-PCS; 2019-10-25)
PROC: 30233N1 Transfusion of Nonautologous Red Blood Cells into Peripheral Vein, Percutaneous Approach (ICD-10-PCS; 2019-10-26)
PROC: 0DTF4ZZ Resection of Right Large Intestine, Percutaneous Endoscopic Approach (ICD-10-PCS; 2019-10-28)
DX: K63.3 Ulcer of intestine (principal); G93.40 Encephalopathy, unspecified; E43 Unspecified severe protein-calorie malnutrition; L89.159 Pressure ulcer of sacral region, unspecified stage; N17.9 Acute kidney failure, unspecified; R53.2 Functional quadriplegia; K92.2 Gastrointestinal hemorrhage, unspecified; D62 Acute posthemorrhagic anemia; Z93.1 Gastrostomy status; K56.41 Fecal impaction; D50.9 Iron deficiency anemia, unspecified; R13.10 Dysphagia, unspecified; S05.8X9A Other injuries of unspecified eye and orbit, initial encounter; X58.XXXA Exposure to other specified factors, initial encounter; E87.0 Hyperosmolality and hypernatremia; R53.81 Other malaise; E87.1 Hypo-osmolality and hyponatremia; S06.9X0A Unspecified intracranial injury without loss of consciousness, initial encounter; N18.9 Chronic kidney disease, unspecified; K56.7 Ileus, unspecified; Z74.01 Bed confinement status; Z68.1 Body mass index [BMI] 19.9 or less, adult; Q43.8 Other specified congenital malformations of intestine; Z87.828 Personal history of other (healed) physical injury and trauma; Z79.899 Other long term (current) drug therapy; Y93.89 Activity, other specified; Y92.89 Other specified places as the place of occurrence of the external cause; Y99.8 Other external cause status; Z86.73 Personal history of transient ischemic attack (TIA), and cerebral infarction without residual deficits
CPT/HCPCS: 45380; 96360; 96361; 99285; G0378; 36415; 71045; 74018; 80048; 80053; 81001; 82272; 82607; 82728; 82746; 82948; 83540; 83605; 83735; 83880; 83930; 84100; 84295; 84478; 84484; 85018; 85025; 85610; 85730; 86886; 86900; 86901; 86920; 87040; 87081; 87086; 88305; 88307; 88312; 88313; 88342; 92526; 92610; 93005; A9153; C1751; C9113; J0330; J0690; J1100; J1170; J1650; J1815; J1940; J2060; J2250; J2405; J2704; J2710; J3010; J3475; J3480; J3490; J7030; J7042; P9016; Q0092

== ENCOUNTER 2020-11-09 18:40 | Inpatient (IN) | payer OTHER, SELFPAY ==
[~2020-11-09] VITALS: Ht 165.1 cm; Wt 44.0 kg
[~2020-11-09 18:40] MED LIST changes: -ASCO500T45 PO; +ASCO500T95 PO; -ASPI-1822 PO; -BISA-213 RC; -FAMO-90 PO; +KEP500 GT; -LEVE500T9 PO; -MAGN400S60 PO; +MAGN400T7 GT; -MULT-153 PO; +MULT-2112 PO; -ROC1PM IV; -VANC1PLA7 IV
[2020-11-09] MEDS ORDERED: NACL 0.9% 1,000 ML IV SCH (18:55)
--- NOTE | 2020-11-09 19:04 | NUR ---
HASHER MACHINE OPERATOR AT PT BEDSIDE.
[2020-11-09 19:06] VITALS: BP 96/42
--- NOTE | 2020-11-09 19:11 | NUR ---
RECEIVED REPORT FROM BLANK BECKER FOR TRANSFER OF CARE.
--- NOTE | 2020-11-09 19:12 | NUR ---
Gave report to BLANK Storey and BLANK Lowery. Transfer of care at this time.
[2020-11-09 19:20] LABS: BASOPHILS # (AUTO) 0.1 K/uL (0.00-0.22); BASOPHILS % (AUTO) 0.5 % (0.0-2.0); EOSINOPHILS # (AUTO) 0.7 K/uL (0-0.4); EOSINOPHILS % (AUTO) 4.8 % (0.0-4.0); HEMATOCRIT 35.3 % (36-52); HEMOGLOBIN 11.1 g/dL (12.0-18.0); LYMPHOCYTES # (AUTO) 1.4 K/uL (2.0-11.5); LYMPHOCYTES % (AUTO) 10.6 % (20.5-51.1); MEAN CORPUSCULAR HEMOGLOBIN 27 pg (27-31); MEAN CORPUSCULAR HGB CONC 31 g/dL (33-37); MEAN CORPUSCULAR VOLUME 84.7 fL (80-94); MONOCYTES # (AUTO) 0.8 K/uL (0.8-1.0); MONOCYTES % (AUTO) 5.8 % (1.7-9.3); NEUTROPHILS # (AUTO) 10.6 K/uL (1.8-7.7); NEUTROPHILS % (AUTO) 78.3 % (42.2-75.2); PLATELET COUNT (AUTO) 195 K/uL (140-450); RED BLOOD CELL COUNT(AUTO) 4.17 MIL/uL (4.20-6.10); RED CELL DISTRIBUTION WIDTH 16.1 % (11.6-13.7); WHITE BLOOD COUNT (AUTO) 13.6 K/uL (4.8-10.8)
--- NOTE | 2020-11-09 19:32 | NUR ---
PT TAKEN TO CT VIA RGIN[facility].
[2020-11-09 19:51] LABS: ALBUMIN 2.2 g/dL (3.4-5.0); ANION GAP 21.7 (8-16); CARBON DIOXIDE 23.3 mmol/L (21-32); TOTAL BILIRUBIN 0.6 mg/dL (0.0-1.0)
[2020-11-09 19:54] LABS: PROTHROMBIN TIME 10.7 secs (10.8-13.4)
[2020-11-09 19:57] LABS: CREATININE 5.4 mg/dL (0.6-1.3)
--- NOTE | 2020-11-09 19:58 | NUR ---
RECEIVED CALL FROM ELI WILKINS (LABORATORY) FOR CRITICAL VALUE SODIUM: 164 BUN: 230 CREATININE: 5.4 ERMD MADE AWARE, NO ORDERS RECEIVED
--- NOTE | 2020-11-09 20:00 | NUR ---
SEE PATIENT ASSESSMENT FOR MORE INFORMATION.
--- NOTE | 2020-11-09 20:00 | NUR ---
54 YO/M BIBA FROM [facility] FOR ALOC. PATIENT IS NON-VERBAL BUT GRUNTS, AND LOOKS AROUND, GCS 10. 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 PATIENT CAME IN TACHYCARDIC AT AROUND 118HR, AND BP IN THE 90s WITH A TEMP OF 100.8 RECTAL. RR EVEN AND UNLABORED. PATIENT HAS A G-TUBE AND A LOPEZ CATHETER. URINE IS CLOUDY YELLOW WITH SEDIMENTS. R ARM IS RIGID WITH VERY LITTLE MOVEMENT AND NO CORPORATE LIBRARIAN STRENGTH, L ARM HAS MILD CORPORATE LIBRARIAN STRENGTH +1. NO MOVEMENT IN LOWER EXTREMETIES NOTED. PATIENT HAS A 22G TO HIS R FOOT PLACED BY AM SHIFT. WOUND DRESSING NOTED ON R HEEL. PATIENT CONNECTED TO CUTTING INSPECTOR, BED LOCKED IN LOWEST POSITION, X2 SIDE RAILS UP FOR PATIENT SAFETY. PMH: SEE FACILITY CHART [facility]
--- NOTE | 2020-11-09 20:05 | NUR ---
# 16 FR Coats catheter with 10 ml utilizing sterile technique. Immediate return of 50 ml HAZZY YELLOW urine noted. Bedside drainage bag placed below level of bladder. Urine sample collected and sent to lab. Pt tolerated procedure WELL.
[2020-11-09 20:12] LABS: ACETAMINOPHEN < 0.5 ug/ml (10-30); SALICYLATE < 2.8 mg/dL (2.8-20.0)
--- NOTE | 2020-11-09 20:15 | NUR ---
EDDIE MANZANO AND URINE SAMPLE COLLECTED AND HANDED TO DAVID FROM LAB.
[2020-11-09 20:16] LABS: CREATINE KINASE MB 0.4 ng/mL (0-3.6)
[2020-11-09] MEDS ORDERED: NACL 0.9% 1,000 ML IV ONE (20:20)
[2020-11-09] MEDS ORDERED: cefTRIAXone 1,000 MG VIAL ONE (20:24)
[2020-11-09 20:49] LABS: BARBITURATE, URINE NEGATIVE ng/ml (NEG <=200); BENZODIAZEPINE, URINE NEGATIVE ng/mL (NEG <=200); CANNABINOID, URINE NEGATIVE ng/mL (NEG <=50); COCAINE, URINE NEGATIVE ng/mL (NEG <=300); OPIATE, URINE POSITIVE ng/mL (NEG <=2000); PHENCYCLIDINE SCREEN,URINE NEGATIVE ng/mL (NEG <=25)
[2020-11-09] MEDS ORDERED: [UNRECOGNIZED DRUG - CODE] (20:51)
[2020-11-09] MEDS ORDERED: XALOS OP (20:51)
--- NOTE | 2020-11-09 20:55 | NUR ---
NEW PULSE OX PLACED ON PT'S LEFT EAR LOBE - OXYGEN LEVEL NOTED AT 97% ON 5L NC. PT'S O2 DECREASED TO 2L NC AT THIS TIME.
[2020-11-09 20:56] LABS: APPEARANCE,URINE HAZY (CLEAR); BILIRUBIN,URINE NEGATIVE (NEGATIVE); BLOOD, URINE 3+ (NEGATIVE); COLOR,URINE YELLOW (YELLOW); LEUKOCYTE ESTERASE ,URINE 3+ (NEGATIVE); NITRITE, URINE POSITIVE (NEGATIVE); PH,URINE 7.5 (5.0-9.0); UGLUCOSE NEGATIVE (NEGATIVE)
--- NOTE | 2020-11-09 20:58 | NUR ---
PER ERMD'S ORDERS - 2ND BOLUS COMPLETED - SHE WILL INSERT NEW CMP ORDER TO VERIFY NA LEVELS.
[2020-11-09 21:00] LABS: RBC,URINE 50-80 /HPF (0-5); WBC,URINE 20-60 /HPF (0-5)
[2020-11-09] MEDS ORDERED: ACETAMINOPHEN 325 MG TAB PO PRN (21:00)
--- NOTE | 2020-11-09 21:20 | NUR ---
WOUND ASSESSMENT COMPLETED AND PHOTOS TAKEN. WOUND RE-DRESSED. PERINEAL CARE DONE.
--- NOTE | 2020-11-09 21:25 | NUR ---
REPOSITIONED PATIENT FOR COMFORT, AND PLACED ON A NEW GOWN.
--- NOTE | 2020-11-09 21:30 | NUR ---
ERMD NOTIFIED REGARDING OBSERVED STRINGS COMING OUT OF PATIENT'S URETHRA. NO INTERVENTIONS NEEDED AT THIS TIME PER ERMD.
--- NOTE | 2020-11-09 22:00 | NUR ---
US AT BEDSIDE.
--- NOTE | 2020-11-09 22:00 | NUR ---
US AT BEDSIDE.
[2020-11-09] MEDS: NACL 0.45% 1,000 ML IV SCH (22:21)
--- NOTE | 2020-11-09 22:31 | NUR ---
REPORT GIVEN TO BLANK SWEENEY FOR TRANSFER OF CARE.
--- NOTE | 2020-11-09 22:31 | NUR ---
Patient will be admitted to care of . Admited to TELEMETRY. Will go to room 123B. Belongings list completed. Report to BLANK SWEENEY.
--- NOTE | 2020-11-09 23:03 | NUR ---
PATIENT TRANSFERRED TO TELEMETRY BY RN AND EMT, RECEIVING NURSE AT BEDSIDE.
--- NOTE | 2020-11-09 23:10 | NUR ---
ADMITTED 54, MALE, FROM [facility] [place], AAOX0, NON VERBAL, ON 2L NC, O2 SAT 100%, FLACC 0, IV SITE AT LEFT AND RT FOOT, W/ RIGHT HEEL DTI, BEDBOUND, V/S TAKEN, MRSA SWAB TAKEN, SAFETY MEASURES IN PLACE, LOW BED IN PLACE, WILL CONTINUE TO MONITOR, CALL LIGHT WITHIN REACH. Addendum: 11/10/20 at 0251 by Eveline Mclean RN ADDENDUM: LOPEZ CATH IN PLACE, RE-INSERTED IN E.R. NOTED BLACK STRINGS AND A COILED GREEN TUBE COMING OUT OF PATIENT'S PENIS. E.R. NURSE ALSO AWARE W/ THAT. ALSO INFORMED CHARGE NURSE.
[2020-11-10] VITALS: BP 97/67
--- NOTE | 2020-11-10 02:51 | NUR ---
ASLEEP, RESPIRATION EVEN AND UNLABORED, WILL CONTINUE TO MONITOR.
[2020-11-10 04:00] VITALS: BP 92/59
--- NOTE | 2020-11-10 04:00 | NUR ---
V/S TAKEN, WILL CONTINUE TO MONITOR, CALL LIGHT WITHIN REACH.
[2020-11-10] MEDS: NACL 0.45% 1,000 ML IV SCH ×3 (05:56→18:46)
--- NOTE | 2020-11-10 07:39 | NUR ---
PT STABLE, ALL NEEDS ATTENDED, ENDORSED TO AM SHIFT RN. ALSO ENDORSED ABOUT THE STRING AND A GREEN RUBBER COILED INSIDE PT'S PENIS.
--- NOTE | 2020-11-10 07:40 | NUR ---
RECEIVED PT FROM NOODLE PRESS OPERATOR NURSERUTHY, PT IS AWAKE AND LYING ON THE BED WITH SIDE RAILS UP AND CALL LIGHT WITHIN REACH, PT IS ON O2 2L NC, IV LINE NOTED ON THE RT FOOT G.22 WITH 1/2 NS INFUSING AT 125ML/HR AND ON THE LEFT FOOT G. 20 ON SALINE LOCK, PT IS ON NPO AND HAS A G-TUBE IN PLACE, A POSSIBLE PENILE STENT WAS ALSO IN PLACE, PT HAS A LOPEZ CATHETER INTACT AND HAS NO SIGN OF DISTRESS NOTED, WILL CONTINUE TO BE MONITORED.
[2020-11-10 08:00] VITALS: BP 94/68
[2020-11-10 08:19] LABS: BASOPHILS % (AUTO) 0.4 % (0.0-2.0); EOSINOPHILS # (AUTO) 0.7 K/uL (0-0.4); EOSINOPHILS % (AUTO) 6.1 % (0.0-4.0); HEMATOCRIT 33.4 % (36-52); HEMOGLOBIN 10.4 g/dL (12.0-18.0); LYMPHOCYTES # (AUTO) 1.1 K/uL (2.0-11.5); LYMPHOCYTES % (AUTO) 9.3 % (20.5-51.1); MEAN CORPUSCULAR HEMOGLOBIN 27 pg (27-31); MEAN CORPUSCULAR HGB CONC 31 g/dL (33-37); MEAN CORPUSCULAR VOLUME 85.3 fL (80-94); MONOCYTES # (AUTO) 0.5 K/uL (0.8-1.0); MONOCYTES % (AUTO) 4.5 % (1.7-9.3); NEUTROPHILS % (AUTO) 79.7 % (42.2-75.2); PLATELET COUNT (AUTO) 135 K/uL (140-450); RED BLOOD CELL COUNT(AUTO) 3.91 MIL/uL (4.20-6.10); RED CELL DISTRIBUTION WIDTH 16.7 % (11.6-13.7); WHITE BLOOD COUNT (AUTO) 11.3 K/uL (4.8-10.8)
--- NOTE | 2020-11-10 08:33 | NUR ---
FNS CONSULT FOR WOUNDS/PRESSURE INJURIES AND FNS REFERRAL FOR G-TUBE FEEDINGS WERE RECEIVED. PATIENT HAS BEEN SCREENED AND CATEGORIZED HIGH NUTRITION RISK. PATIENT WILL BE SEEN WITHIN 1-2 DAYS OF ADMISSION. 11/10/20-11/11/[address]
[2020-11-10 08:45] LABS: ALBUMIN 1.9 g/dL (3.4-5.0); ANION GAP 17.7 (8-16); CARBON DIOXIDE 23.5 mmol/L (21-32); MAGNESIUM 3.1 mg/dL (1.8-2.4); PHOSPHORUS 4.7 mg/dL (2.5-4.9); POTASSIUM 4.2 mmol/L (3.5-5.1); TOTAL BILIRUBIN 0.6 mg/dL (0.0-1.0)
[2020-11-10 08:58] LABS: CREATININE 4.3 mg/dL (0.6-1.3)
--- NOTE | 2020-11-10 09:02 | NUR ---
PAGED DR. STEPHENSON NOW TO REPORT PT'S CRITICAL LAB VALUE FOR NA, BUN AND CREATININE, AWAITING MD CALL BACK.
--- NOTE | 2020-11-10 10:00 | NUR ---
CONTACTED [facility], SPOKE WITH VESTA REGARDING PT'S STENT AND LOPEZ CATHETER. PER DANIEL, PT HAD A PROCEDURE DONE AT [facility] ON 10/27/2020 WHERE THEY PLACED A LOPEZ CATHETER AND STENT, AND STENT HAS TO BE REMOVED ON 11/11/2020 BY A UROLOGIST. NOTIFIED DR. STEPHENSON, STATED HE WILL HAVE DR. NARVAEZ CHECK ON IT. I ASK DR. STEPHENSON IF HE WANTS A UROLOGY CONSULT, DR STEPHENSON STATED NOT AT THIS TIME. RILEY-BLANK ASSIGNED MADE AWARE.
[2020-11-10] MEDS: levETIRAcetam 100 MG/ML ORASYR GT SCH ×2 (10:14→20:30)
--- NOTE | 2020-11-10 10:14 | NUR ---
PT WAS GIVEN THE SCHEDULED AM MEDICATIONS, VIA G-TUBE, PARAMETER CHECKED AND WILL CONTINUE TO MONITOR PT.
[2020-11-10 12:00] VITALS: BP 93/68
--- NOTE | 2020-11-10 12:03 | NUR ---
SOCIAL WORK NOTE: Patient's Orientation Unable To Assess Information Provided By JAYCOB [place] [facility] [place] SW WAS UNABLE TO MEET PATIENT AT BEDSIDE. SW COMPLETED ASSESSMENT WITH [facility] STAFF. Moisture Machine Tender, Realtionship and Phone Number NARDA HOPSON FAMILY [phone] WARNER HOPSON FATHER [phone] Healthcare Power of Boiler Coverer No Does Patient Have a POLST No Identifying Problems No Social Work Triggers Is A Social Work Consult Needed No Mandate Report Filed No Explanation Of Identifying Problems PATIENT IS A 54-YEAR-OLD MALE ADMITTED FOR ACUTE KIDNEY INJURY AND ALOC. PATIENT REFUSED PMHX. Admitted From Group Home Care[facility] - [phone] Pre-Admission Level Of Functioning Status Total Care Prior Resources/Services Used In Last 12 Months SNF Group Home Care Prior Resources/Service Comments PATIENT IS SHELTER AND ON A BED HOLD. Prior DME Hospital Bed Dialysis Comments N/A Patient Had Caregiver No Home Support No Caregiver Issues Financial Issues No Known Financial Issue Referral To The Financial Counselor Needed No Factors/Needs No D/C Needs Identified Pt/Rep Participated In Discharge Plan Yes Patient/Family Agress With Discharge Plan Yes Discharge Plan Comments TENTATIVE DISCHARGE PLAN IS FOR PATIENT TO RET[place] [facility] DC Plan Status Initiated
--- NOTE | 2020-11-10 12:11 | NUR ---
PT'S IVF FLUID 1/2 NS RATE OF 125ML/HR, WAS INCREASED TO 200ML/HR NOW PER DR. NARVAEZ ORDER TO KEEP PT REHYDRATED.
--- NOTE | 2020-11-10 12:20 | NUR ---
DR. NARVAEZ CAME AND SEEN PT, WAS INFORMED OF THE STENT IN THE PENIS THAT WAS NOTED TO THE PT AND MD CHECKED IT AND SAID TO LEAVE IT IN PLACE FOR NOW AND OBTAIN RECORDS FROM PT'S UROLOGIST.
--- NOTE | 2020-11-10 12:21 | NUR ---
DR. NARVAEZ MADE AN ORDER TO GIVE PT WATER FLUSH OF 150ML Q4H.
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
--- NOTE | 2020-11-10 12:40 | NUR ---
CALLED [facility] AND SPOKE TO BLANK SANCHEZ AND ASKED INFORMATION WITH REGARDS TO PT'S UROLOGIST REPORTS AND RN WILL BE FAXING THE REPORT FROM [facility].
--- NOTE | 2020-11-10 12:41 | NUR ---
FNS IS RECOMMENDING A VITAMIN C 250MG ONCE DAILY VIA G-TUBE FOR THE PT,WILL NOTIFY .
--- NOTE | 2020-11-10 13:00 | NUR ---
RECEIVED FAXED RECORDS FROM [facility], ATTACHED TO CHART AND MD NOTIFIED.
--- NOTE | 2020-11-10 13:23 | NUR ---
11/10/20 RD INITIAL ASSESSMENT COMPLETED PLEASE REFER TO NUTRITION ASSESSMENT UNDER CARE ACTIVITY FOR ESTIMATED NUTRITIONAL NEEDS. 1. RECOMMEND NEPRO 1.8 @ 40 ML/HR. START AT 20 ML/HR AND INCREASE TO 40 AFTER 2 HR 2. FREE WATER FLUSH OF 150 ML Q4H PER ECONOMICS TEACHER 3. RECOMMEND VITAMIN C [address] TO FOLLOW-UP 2-3 DAYS, HIGH RISK SUSHIL HERNANDEZ, RD
[2020-11-10 16:00] VITALS: BP 91/55
--- NOTE | 2020-11-10 16:30 | NUR ---
TUBE FEEDING OF NEPRO WAS STARTED TO PT AT 20ML/HR, TO ADVANCE BY 20ML Q4H AND GOAL IS 40ML/HR, WITH WATER FLUSH OF 150 Q4H.
--- NOTE | 2020-11-10 17:20 | NUR ---
PT WAS CLEANED AND REPOSITIONED NOW.
--- NOTE | 2020-11-10 19:20 | NUR ---
ENDORSED PT TO NIGHT SIFT NURSE FOR CONTINUITY OF CARE.
--- NOTE | 2020-11-10 19:23 | NUR ---
RECEIVED PT IN STABLE CONDITION FROM AM NURSE. PT IS ALTERED. ON TELE MONITOR. APHASIC. WITH O2 2L/ NC. NO RESPIRATORY DISTRESS NOTED. BEDBOUND. HAS IVF INFUSING WELL ON THE RT FOOT G#22. CLEAR AND PATENT. HL ON LT FOOT G#20. TF NEPHRO @20 ML /HR. TO INCREASE TO 40 ML BY 2029 IF TOLERATING WELL. LOPEZ CATHETER DRAINING TO CLEAR YELLOW URINE. HAS LT FOOT DTI, REDNESS ON LT UPPER BACK. FREQ ROUNDS NEEDED. BED ON LOWEST POSITION. SIDE RAILS UP X2. PADDED FOR SEIZURE PRECAUTION. CALL LIGHT PLACED WITHIN EASY REACH. WILL CONTINUE TO MONITOR. Addendum: 11/10/20 at 7706 by Sarah Shields RN RT FOOT DTI INSTEAD OF LT FOOT.
[2020-11-10 20:00] VITALS: BP 99/58
--- NOTE | 2020-11-10 20:30 | NUR ---
PT TOLERATING FEEDING . INCREASED THE RATE TO 40 ML/HR PER ORDER . WILL CONTINUE TO MONITOR.
--- NOTE | 2020-11-10 22:00 | NUR ---
MADE ROUNDS. PT IS AWAKE, APHASIC. NO RESPIRATORY DISTRESS NOTED. WILL CONTINUE TO MONITOR.
[2020-11-11] VITALS: BP 100/54
--- NOTE | 2020-11-11 | NUR ---
PT REPOSITIONED FOR COMFORT. NO DISTRESS NOTED.
[2020-11-11] MEDS: NACL 0.45% 1,000 ML IV SCH ×2 (00:49→03:43)
--- NOTE | 2020-11-11 02:00 | NUR ---
MADE ROUNDS. PT AWAKE, NO DISCOMFORT /PAIN NOTED.
[2020-11-11 04:00] VITALS: BP 100/57
--- NOTE | 2020-11-11 05:00 | NUR ---
PT HAD A MODERATE AMOUNT OF SOFT STOOL . CLEANED AND KEPT DRY.
[2020-11-11 06:33] LABS: BASOPHILS % (AUTO) 0.2 % (0.0-2.0); EOSINOPHILS # (AUTO) 0.7 K/uL (0-0.4); EOSINOPHILS % (AUTO) 8.7 % (0.0-4.0); HEMATOCRIT 26.6 % (36-52); HEMOGLOBIN 8.4 g/dL (12.0-18.0); LYMPHOCYTES # (AUTO) 0.6 K/uL (2.0-11.5); LYMPHOCYTES % (AUTO) 7.6 % (20.5-51.1); MEAN CORPUSCULAR HEMOGLOBIN 27 pg (27-31); MEAN CORPUSCULAR HGB CONC 32 g/dL (33-37); MEAN CORPUSCULAR VOLUME 85.3 fL (80-94); MONOCYTES # (AUTO) 0.4 K/uL (0.8-1.0); MONOCYTES % (AUTO) 5.4 % (1.7-9.3); NEUTROPHILS # (AUTO) 6.5 K/uL (1.8-7.7); NEUTROPHILS % (AUTO) 78.1 % (42.2-75.2); PLATELET COUNT (AUTO) 143 K/uL (140-450); RED BLOOD CELL COUNT(AUTO) 3.11 MIL/uL (4.20-6.10); RED CELL DISTRIBUTION WIDTH 15.7 % (11.6-13.7); WHITE BLOOD COUNT (AUTO) 8.4 K/uL (4.8-10.8)
[2020-11-11 06:48] LABS: ALBUMIN 1.7 g/dL (3.4-5.0); ANION GAP 15.1 (8-16); CARBON DIOXIDE 23.3 mmol/L (21-32); CREATININE 2.9 mg/dL (0.6-1.3); POTASSIUM 3.4 mmol/L (3.5-5.1); TOTAL BILIRUBIN 0.4 mg/dL (0.0-1.0)
--- NOTE | 2020-11-11 07:15 | NUR ---
ENDORSED PT IN STABLE CONDITION TO AM NURSE FOR CONTINUITY OF CARE.
--- NOTE | 2020-11-11 07:20 | NUR ---
REC'D REPORT FROM BASE CLOTH INSPECTOR NURSE, PT A/OX1, CAN TURN HEAD WHEN NAME CALLED, RA. PT ON TELEMONITOR, NEPHRO GTUBE FORMULA RUNNING AT 40ML/HR. INSERTION SITE RED, NO INFLAMMATION NOTED, DRY, CLEAN, COVERED WITH DRESSING. CONTRACTURES NOTED ON TATI.HANDS. PT HAS L.HEEL PRESSURE ULCER COVERED WITH GAUZE. IV R. FOOT 22G DRY, CLEAN, INTACT, INFUSING 0.45%NS AT 200ML/HR. SIDE RAILS PADDED FOR SEIZURE PRECAUTIONS. ALL SAFETY MEASURES IN PLACE. NO SIGN OF DISTRESS. WILL CONTINUE TO MONITOR PT.
[2020-11-11 07:31] LABS: CKMB RELATIVE INDEX 0.2 (0.0-2.5); CREATINE KINASE MB 1.6 ng/mL (0-3.6)
[2020-11-11 08:00] VITALS: BP 106/58
[2020-11-11] MEDS ORDERED: ASCORBIC ACID 500 MG/5 ML ORASYR GT SCH (09:00)
[2020-11-11] MEDS: ASCORBIC ACID 500 MG/5 ML ORASYR GT SCH (09:58)
[2020-11-11] MEDS: levETIRAcetam 100 MG/ML ORASYR GT SCH ×2 (09:59→20:29)
--- NOTE | 2020-11-11 10:12 | NUR ---
WOUND CARE EVALUATION NOTE: PT. ADMITTED WITH LOW ARIS SCALE AT HIGH RISK, AND UN-STAGEABLE PRESSURE INJURY TO RIGHT HEEL 3X3CM BLACK NECROTIC TISSUE, DRY AND AMALIA WOUND SKIN PURPLE DTI FURTHER DAMAGE INDICATED, POC DISCUSSED WITH PRIMARY RN. RECOMMENDATIONS: -CLEANSE RIGHT HEEL WITH NS, PAT DRY, APPLY SOAKED BETADINE ROSY. WRAP WITH KERLIX ROLLS QD -HEEL RAISERS TO RIGHT HEEL AT ALL TIME -APPLY HYDRAGUARD TO SCROTAL AND BUTTOCKS BID AND PRN IF SOILING -TURN AND REPOSITION PATIENT Q 2H -ASSESS AND MONITOR SKIN CONDITION DURING POSITION CHANGE -OFFLOAD BILATERAL HEELS BY PLACING PILLOWS UNDER CALVES AT ALL TIMES, UNLESS OTHERWISE CONTRAINDICATED -PRESSURE REDISTRIBUTION BY PLACING PILLOWS AND OFFLOADING SACRALCOCCYX -KEEP SKIN CLEAN AND DRY AT ALL TIMES.
--- NOTE | 2020-11-11 10:15 | NUR ---
MEDICATIONS ADMINISTERED PER MD ORDER, 50ML LIGHT GREEN THICK RESIDUAL, FLUSHED WITH STERILE WATER PRIOR TO AND AFTER MEDICATION ADMINISTRATION, MOA AND SIDE EFFECTS DISCUSSED WITH PT WHO CANNOT VERBALIZE UNDERSTANDING. PT TOLERATED MEDICATIONS WELL. ALL SAFETY MEASURES IN PLACE. WILL CONTINUE TO MONITOR PT.
--- NOTE | 2020-11-11 11:33 | NUR ---
INFORMED DR. STEPHENSON WHO WAS PRESENT ON UNIT OF PT'S BOWEL MOVEMENT, WATERY, FOUL SMELL AND GREEN/THICK RESIDUAL FROM GTUBE. NO CHANGE IN ORDERS AT THIS TIME
[2020-11-11] MEDS: DEXT 5% / NACL 0.2% 1,000 ML IV SCH ×2 (11:40→20:53)
[2020-11-11] MEDS ORDERED: POTASSIUM CHLORIDE 10 MEQ TABER PO SCH (12:00)
[2020-11-11] MEDS: GAUZE TP SCH (13:00)
[2020-11-11] MEDS: HYDRAGUARD CREAM TP SCH (13:00)
--- NOTE | 2020-11-11 13:45 | NUR ---
PT TAKEN TO CT SCAN FOR IMAGING
--- NOTE | 2020-11-11 13:55 | NUR ---
RETURNED FROM CT SCAN
[2020-11-11] MEDS ORDERED: POTASSIUM CHLORIDE 20% 40 MEQ/15 ML UDC GT SCH (14:00)
--- NOTE | 2020-11-11 14:08 | NUR ---
MEDICATIONS ADMINISTERED PER MD ORDER, 30ML LIGHT GREEN THICK RESIDUAL, FLUSHED WITH STERILE WATER PRIOR TO AND AFTER MEDICATION ADMINISTRATION, MOA AND SIDE EFFECTS DISCUSSED WITH PT WHO CANNOT VERBALIZE UNDERSTANDING. PT TOLERATED MEDICATIONS WELL. ALL SAFETY MEASURES IN PLACE. WILL CONTINUE TO MONITOR PT.
[2020-11-11 16:00] VITALS: BP 99/62
[2020-11-11] MEDS: MUPIROCIN CA NASAL 2% 1GM TUBE NS SCH (17:35)
[2020-11-11] MEDS: CHLORHEXADINE GLUC 2% CLOTH TP SCH (17:35)
--- NOTE | 2020-11-11 17:44 | NUR ---
ADMINISTERED MEDICATION PER MD ORDER, PT TOLERATED NASAL APPLICATION OF OINTMENT. MOA AND SIDE EFFECTS DISCUSSED WITH PT WHO COULD NOT VERBALIZE UNDERSTANDING
--- NOTE | 2020-11-11 19:15 | NUR ---
RECEIVED BEDSIDE REPORT FROM DAY SHIFT NURSE FOR CONTINUITY OF CARE. PT IS APHASIC AND BEDBOUND. ON RA WITH BREATHING UNLABORED. G TUBE IN PLACE RUNNING NEPRO AT 40 ML PER HOUR PER ORDER. SKIN IS WARM AND DRY. WOUNDS ON THE SACRAL AND RIGHT HEEL. OPTIFOAM IN PLACE ON THE SACRAL, DRY AND INTACT. IV'S ARE ON THE LEFT FOOT 20 GAUGE SALINE LOCKED AND RIGHT FOOT 22 GAUGE RUNNING D5NS 0.2% AT 125 ML PER HOUR PER ORDER. PT IS STABLE AT THIS TIME. LAYING IN SEMI FOWLERS POSITION WITH HICCUPS PRESENT. PLAN OF CARE DISCUSSED. FALL AND CONTACT PRECAUTIONS IN PLACE FOR MRSA NARES POSITIVE.
[2020-11-11 20:00] VITALS: BP 104/60
--- NOTE | 2020-11-11 20:54 | NUR ---
G TUBE FEEDING WAS REPLACED AND TUBING WAS CHANGED. G TUBE RESIDUAL WAS LESS THAN 5 ML, LIGHT BROWN IN COLOR. TOLERATING FEEDING WELL. PT HAS A LOPEZ CATH IN PLACE DRAINING YELLOW URINE WITH SEDIMENT. IV FLUIDS WERE CHANGED WELL. IV IS PATENT AND INTACT IN BOTH FEET. IV IS FLUSHING WELL WITH NO SIGNS OF INFILTRATION. RIGHT FOOT BOOT IN PLACE. WOUND IS WRAPPED WITH BANDAGE AND BETADINE IS PRESENT ON THE DRESSING. PT APPEARS TO BE STABLE, NO SIGNS OF DISTRESS.
--- NOTE | 2020-11-11 23:00 | NUR ---
PT IS AWAKE AND LAYING IN SEMI FOWLERS POSITION. NO RESPIRATORY DISTRESS NOTED. BREATHING IS UNLABORED. PT IS NONVERBAL AND APHASIC. TRACKS WITH EYES. G TUBE FEEDING IS INFUSING. IV FLUIDS ARE INFUSING ORDERED THROUGH RIGHT FOOT IV. PT IS REPOSITIONED. WILL CONTINUE TO MONITOR.
[2020-11-12] VITALS: BP 96/58
--- NOTE | 2020-11-12 01:00 | NUR ---
ROUNDED ON PT. HE IS LYING AWAKE IN SEMI FOWLERS POSITION. NO RESPIRATORY DISTRESS OR SOB NOTED. FLACC 0. PADDED BOOT IN PLACE ON THE RIGHT FOOT. DRESSING IS DRY AND INTACT ON THE RIGHT FOOT WOUND. IV IS PATENT AND INFUSING FLUIDS. G TUBE RESIDUAL IS 5 ML. PT TOLERATING FEEDING WELL. WILL CONTINUE TO MONITOR.
[2020-11-12] MEDS: HYDRAGUARD CREAM TP SCH ×2 (01:22→13:33)
--- NOTE | 2020-11-12 03:00 | NUR ---
PT IS CHANGED AND REPOSITIONED. PT HAD A BM. MODERATE IN SIZE AND FOUL ODOR. PT TOLERATING TURNING WELL. G TUBE RESIDUAL IS LESS THAN 5 ML. TOLERATING THE FEEDING WELL. IV FLUIDS ARE INFUSING. BREATHING IS UNLABORED ON RA. FLACC 0. PT IS STABLE.
[2020-11-12] MEDS: DEXT 5% / NACL 0.2% 1,000 ML IV SCH ×3 (03:40→19:40)
[2020-11-12 04:00] VITALS: BP 101/66
--- NOTE | 2020-11-12 05:00 | NUR ---
PT IS ASLEEP. NO DISTRESS NOTED. HOB AT 45 DEGREE ANGLE. FEEDING IS RUNNING THROUGH G TUBE. FLUIDS ARE INFUSING AND IV IS PATENT. PILLOWS ARE SUPPORT BONY REGIONS. WILL CONTINUE TO MONITOR.
[2020-11-12 05:39] LABS: BASOPHILS % (AUTO) 0.2 % (0.0-2.0); EOSINOPHILS # (AUTO) 0.7 K/uL (0-0.4); EOSINOPHILS % (AUTO) 8.2 % (0.0-4.0); HEMOGLOBIN 8.1 g/dL (12.0-18.0); LYMPHOCYTES # (AUTO) 0.8 K/uL (2.0-11.5); LYMPHOCYTES % (AUTO) 10.6 % (20.5-51.1); MEAN CORPUSCULAR HEMOGLOBIN 27 pg (27-31); MEAN CORPUSCULAR HGB CONC 32 g/dL (33-37); MEAN CORPUSCULAR VOLUME 83.7 fL (80-94); MONOCYTES # (AUTO) 0.4 K/uL (0.8-1.0); PLATELET COUNT (AUTO) 147 K/uL (140-450); RED BLOOD CELL COUNT(AUTO) 2.99 MIL/uL (4.20-6.10); RED CELL DISTRIBUTION WIDTH 15.1 % (11.6-13.7)
[2020-11-12 05:54] LABS: ALBUMIN 1.7 g/dL (3.4-5.0); ANION GAP 15.1 (8-16); CARBON DIOXIDE 21.1 mmol/L (21-32); CREATININE 1.8 mg/dL (0.6-1.3); MAGNESIUM 1.9 mg/dL (1.8-2.4); POTASSIUM 3.2 mmol/L (3.5-5.1); TOTAL BILIRUBIN 0.3 mg/dL (0.0-1.0)
--- NOTE | 2020-11-12 07:10 | NUR ---
ENDORSED PT TO DAY SHIFT NURSE FOR CONTINUITY OF CARE. PT IS STABLE AT THIS TIME. PLAN OF CARE DISCUSSED.
--- NOTE | 2020-11-12 07:15 | NUR ---
RECEIVED PATIENT FROM NIGHT NURSE. PATIENT IN BED SLEEPING, CHEST NOTED RISING. NO NOTED DISTRESS AT THIS TIME. RESP EVEN AND UNLABORED ON ROOM AIR. CONTACT PRECAUTION IN PLACE FOR MRSA. SEIZURE PRECAUTION IN PLACE. GTUBE WITH NEPRO FEEDING. LOPEZ NOTED IN PLACE. LEFT FOOT 20G SL, RIGHT FOOT 22G INFUSING D5NS0.2% 125ML/HR. HOB ELEVATED. SAFETY MEASURES IN PLACE. CALL LIGHT WITHIN REACH. WILL CONTINUE TO MONITOR.
[2020-11-12 08:00] VITALS: BP 105/71
[2020-11-12] MEDS: levETIRAcetam 100 MG/ML ORASYR GT SCH ×2 (09:08→20:51)
[2020-11-12] MEDS: ASCORBIC ACID 500 MG/5 ML ORASYR GT SCH (09:08)
[2020-11-12] MEDS ORDERED: POTASSIUM CHLORIDE 20% 40 MEQ/15 ML UDC GT SCH (09:30)
--- NOTE | 2020-11-12 09:33 | NUR ---
PATIENT AWAKE, EYE OPENING SPONTANEOUS TO NAME. UPPER ARM WITH GOOD STRENGTH, MILD RESISTIVE TO LOWER BILATERAL EXTREMITIES. RESP EVEN AND UNLABORED ON ROOM AIR. MORNING ROUTINE MEDICATIONS GIVEN VIA GTUBE, RESIDUAL CHECK LESS THAN 5ML. PATIENT TOLERATING FEEDING WELL. LOPEZ DRAINING YELLOW URINE TO BAG. RF 22G INFUSING WELL, LF 20G INTACT AND PATENT, SL. SKIN WARM TO TOUCH. NO NOTED EDEMA. PATIENT APHASIC. HOB ELEVATED. CALL LIGHT WITHIN REACH. WILL CONTINUE TO MONITOR.
--- NOTE | 2020-11-12 11:45 | NUR ---
PATIENT IN BED AWAKE WATCHING TV. EYE TRACKING NOTED. RESP EVEN AND UNLABORED ON ROOM AIR. NO NOTED DISTRESS AT THIS TIME. CALL LIGHT WITHIN REACH. WILL CONTINUE TO MONITOR.
[2020-11-12 12:00] VITALS: BP 105/66
[2020-11-12] MEDS: GAUZE TP SCH (13:33)
--- NOTE | 2020-11-12 13:36 | NUR ---
WOUND CARE GIVEN. PATIENT TOLERATED WELL. NO NOTED DISTRESS AT THIS TIME. CALL LIGHT WITHIN REACH. WILL CONTINUE TO MONITOR
--- NOTE | 2020-11-12 14:39 | NUR ---
DR STEPHENSON MADE AWARE OF PATIENT URINE C/S RESULTS. AWAITING FOR ORDERS.
[2020-11-12 16:00] VITALS: BP 100/63
--- NOTE | 2020-11-12 16:07 | NUR ---
PATIENT IN BED SLEEPING, CHEST NOTED RISING. NO NOTED DISTRESS. CALL LIGHT WITHIN REACH. WILL CONTINUE TO MONITOR.
--- NOTE | 2020-11-12 17:06 | NUR ---
11/12/20 RD FOLLOW UP COMPLETED PLEASE REFER TO NUTRITION ASSESSMENT UNDER CARE ACTIVITY FOR ESTIMATED NUTRITIONAL NEEDS. 1. CONTINUE NEPRO 1.8 @ 40 ML/HR. START AT 20 ML/HR AND INCREASE TO 40 AFTER 2 HR 2. FREE WATER FLUSH OF 150 ML Q4H PER FLIGHT COORDINATOR 3. CONTINUE VITAMIN C [address] ON[address] 4[address] TO FOLLOW-UP 2-3 DAYS, HIGH RISK SUSHIL HERNANDEZ, RD
[2020-11-12] MEDS: CHLORHEXADINE GLUC 2% CLOTH TP SCH (17:08)
[2020-11-12] MEDS: MUPIROCIN CA NASAL 2% 1GM TUBE NS SCH (17:08)
--- NOTE | 2020-11-12 17:40 | NUR ---
DR ABEL AT BEDSIDE REMOVED URETERAL STENT. PATIENT TOLERATED WELL. NO NOTED DISTRESS. NO NEW ORDERS. WILL CONTINUE TO MONITOR.
--- NOTE | 2020-11-12 18:50 | NUR ---
PATIENT IN BED AWAKE WATCHING TV. RESP EVEN AND UNLABORED ON ROOM AIR. NO NOTED DISTRESS. CALL LIGHT WITHIN REACH. WILL CONTINUE TO MONITOR.
--- NOTE | 2020-11-12 19:05 | NUR ---
ENDORSED PATIENT TO NIGHT NURSE. PATIENT IN STABLE CONDITION.
--- NOTE | 2020-11-12 19:05 | NUR ---
RECEIVED BEDSIDE REPORT FROM DAY SHIFT NURSE FOR CONTINUITY OF CARE. PT IS AWAKE AND LAYING IN SEMI FOWLERS POSITION. APHASIC, BEDBOUND, AND CONTRACTED BILATERAL UPPER/ LOWER EXTREMITIES. ON RA WITH BREATHING UNLABORED. LOPEZ CATHETER IN PLACE DRAINING CLEAR, YELLOW URINE. G TUBE IN PLACE RUNNING NEPRO AT 40 ML PER HOUR PER ORDER. SKIN IS WARM AND DRY. RIGHT HEEL WOUND WITH DRESSING DRY AND INTACT. SACRAL WOUND APPEARS TO BE HEALED. REDNESS ON FORESKIN IS APPARENT. IV IS IN THE LEFT FOOT 20 GAUGE AND RIGHT FOOD 22 GAUGE RUNNING D5 NS 0.2% AT 125 ML/ HR. PT IS STABLE AT THIS TIME. PLAN OF CARE DISCUSSED.
[2020-11-12 20:00] VITALS: BP 117/72
--- NOTE | 2020-11-12 20:20 | NUR ---
SPOKE TO DR. DON ON THE PHONE. UPDATED HIM ON THE STATUS OF THE PT. ALL QUESTIONS WERE ANSWERED. DR. DON INCREASED THE DOSE OF THE INVANZ ANTIBIOTIC FROM 500 MG TO 1,000 MG. WILL ADMINISTER WHEN VERIFIED.
--- NOTE | 2020-11-12 20:50 | NUR ---
DR. DON INCREASED THE INVANZ ANTIBIOTIC DOSE FROM 500 MG TO 1,000 MG. THE PHARMACY ON SITE DURING DAY SHIFT ALREADY PREPARED INVANZ 500 MG AND IT IS AVAILABLE IN THE [place]. NEED 500 MG MORE OF INVANZ ANTIBIOTIC AND UNABLE TO LOCATE IN THE [employer]. CALLED TYPEWRITER ASSEMBLER, ALEXIS, TO ASK FOR INVANZ ANTIBIOTIC. HE SAID HE WILL LOOK FOR IT AND CALL ME BACK.
[2020-11-12] MEDS ORDERED: ERTAPENEM SODIUM 500 MG in NACL 0.9% 50 ML IV SCH (21:00)
--- NOTE | 2020-11-12 21:10 | NUR ---
CALLED RUBBER COMPOUNDER SUPERVISOR AGAIN AND ASKED HIM TO GET D5 0.20% NS BECAUSE I WAS UNABLE TO LOCATE IT IN THE [facility]. HE ALSO INFORMED ME THAT HE WAS UNABLE TO FIND THE INVANZ ANTIBIOTIC ON OTHER UNITS AND CALLED PHARMACY FOR ASSISTANCE. HE WILL CALL ME BACK WHEN HE GETS A RESPONSE FROM PHARMACY.
--- NOTE | 2020-11-12 21:48 | NUR ---
G TUBE FEEDING AND TUBING WAS CHANGED. G TUBE RESIDUAL WAS 5 ML, LIGHT BROWN COLOR. FLACC 0. BREATHING UNLABORED ON RA. LOPEZ CATH IN PLACE DRAINING URINE. LINENS ARE DRY AND PT WAS REPOSITIONED. WILL CONTINUE TO MONITOR.
--- NOTE | 2020-11-12 22:05 | NUR ---
TEAM LEADER SURGERY, ALEXIS, BROUGHT OVER THE INVANZ 1,000 MG IVPB TO THE UNIT. WILL ADMINISTER NOW.
[2020-11-12] MEDS: ERTAPENEM SODIUM 1,000 MG in NACL 0.9% 50 ML IV SCH (22:12)
--- NOTE | 2020-11-12 23:37 | NUR ---
ROUNDED ON PT. HE IS AWAKE WITH EYES OPEN. PT CURRENTLY HAS THE HICCUPS. NO DISTRESS NOTED. BREATHING IS UNLABORED ON RA. FEEDING IS INFUSING THROUGH THE G TUBE. IV IS PATENT AND INTACT ON BILATERAL FEET. NO SIGNS OF DISTRESS AT THIS TIME.
[2020-11-13] VITALS: BP 111/75
--- NOTE | 2020-11-13 00:45 | NUR ---
MANAGER UTILIZATION BROUGHT FLUID TO THE UNIT AFTER THE PHARMACIST MIXED AND PREPARED THE SOLUTION. WILL ADMINISTER NOW.
[2020-11-13] MEDS: NACL IV SCH ×2 (00:50→06:15)
[2020-11-13] MEDS: DEXTROSE 5% IV SCH ×2 (00:50→06:15)
[2020-11-13] MEDS: HYDRAGUARD CREAM TP SCH ×2 (00:50→13:04)
--- NOTE | 2020-11-13 03:00 | NUR ---
PT IS SLEEPING. CHEST RISE AND FALL IS SYMMETRICAL. BREATHING IS UNLABORED. G TUBE RESIDUAL IS LESS THAN 5 ML. PT IS STABLE.
[2020-11-13] MEDS: DEXT 5% / NACL 0.2% 1,000 ML IV SCH ×2 (03:40→11:00)
[2020-11-13 04:00] VITALS: BP 133/78
--- NOTE | 2020-11-13 05:00 | NUR ---
ROUNDED ON PT. HE IS AWAKE WITH EYES OPEN. PT TRACKS WITH EYES BUT DOES NOT FOLLOW COMMANDS. PT'S LINENS WERE CHANGED AND PT WAS REPOSITIONED. PT TOLERATED THIS WELL. NO DISTRESS NOTED. IV FLUIDS ARE INFUSING AND G TUBE FEEDING IS INFUSING.
[2020-11-13 06:09] LABS: ANION GAP 13.1 (8-16); CARBON DIOXIDE 23.6 mmol/L (21-32); CREATININE 1.4 mg/dL (0.6-1.3); POTASSIUM 3.7 mmol/L (3.5-5.1)
[2020-11-13 06:21] LABS: BASOPHILS % (AUTO) 0.2 % (0.0-2.0); EOSINOPHILS # (AUTO) 0.5 K/uL (0-0.4); EOSINOPHILS % (AUTO) 6.9 % (0.0-4.0); HEMATOCRIT 26.8 % (36-52); HEMOGLOBIN 8.6 g/dL (12.0-18.0); LYMPHOCYTES # (AUTO) 1.1 K/uL (2.0-11.5); LYMPHOCYTES % (AUTO) 15.3 % (20.5-51.1); MEAN CORPUSCULAR HEMOGLOBIN 27 pg (27-31); MEAN CORPUSCULAR HGB CONC 32 g/dL (33-37); MEAN CORPUSCULAR VOLUME 84.8 fL (80-94); MONOCYTES # (AUTO) 0.3 K/uL (0.8-1.0); MONOCYTES % (AUTO) 4.5 % (1.7-9.3); NEUTROPHILS # (AUTO) 5.1 K/uL (1.8-7.7); NEUTROPHILS % (AUTO) 73.1 % (42.2-75.2); PLATELET COUNT (AUTO) 176 K/uL (140-450); RED BLOOD CELL COUNT(AUTO) 3.16 MIL/uL (4.20-6.10); RED CELL DISTRIBUTION WIDTH 15.3 % (11.6-13.7)
--- NOTE | 2020-11-13 07:39 | NUR ---
ENDORSED PT TO DAY SHIFT NURSE FOR CONTINUITY OF CARE. PT IS STABLE AT THIS TIME. PLAN OF CARE DISCUSSED.
--- NOTE | 2020-11-13 07:40 | NUR ---
RECEIVED BEDSIDE ENDORSEMENT FROM NIGHTSILFT NURSE FOR CONTINUITY OF CARE.
[2020-11-13 08:00] VITALS: BP 120/80
[2020-11-13] MEDS: ASCORBIC ACID 500 MG/5 ML ORASYR GT SCH (09:12)
[2020-11-13] MEDS: levETIRAcetam 100 MG/ML ORASYR GT SCH ×2 (09:13→20:27)
--- NOTE | 2020-11-13 09:22 | NUR ---
ADMINISTERED PRESCRIBED MEDS PER MD ORDER. PATIENT TOLERATED WELL. MEDICATION EDUCATION REINFORCEMENT NEEDED. MD AT BEDSIDE ROUNDING. SAFETY MEASURES IN PLACE. WILL CONTINUE TO MONITOR.
--- NOTE | 2020-11-13 10:32 | NUR ---
PATIENT ROUNDING PERFORMED. PATIENT RESTING IN BED. VISIBLE RISE AND FALL OF CHEST, RESPIRATIONS ARE EVEN AND UNLABORED. PATIENT SHOWS NO SIGNS OF DISCOMFORT/DISTRESS. PATIENT LOPEZ CATHETER DRAINING CLEAR YELLOW URINE. NO SIGNS OF SWELLING/EDEMA. SAFETY MEASURES IN PLACE. WILL CONTINUE TO MONITOR.
[2020-11-13 12:00] VITALS: BP 130/79
[2020-11-13] MEDS ORDERED: DEXTROSE 5% 1,000 ML IV SCH (12:15)
[2020-11-13] MEDS: DEXTROSE 5% 1,000 ML IV SCH ×2 (12:58→22:15)
[2020-11-13] MEDS: chlorproMAZINE 25 MG TAB GT SCH ×2 (13:04→17:15)
[2020-11-13] MEDS: GAUZE TP SCH (13:08)
[2020-11-13] MEDS: MAG SULF 2000 MG/WATER PREMIX 50 ML IV SCH ×2 (13:08→15:00)
--- NOTE | 2020-11-13 13:35 | NUR ---
ADMINISTERED PRESCRIBED MEDS PER MD ORDER. PATIENT TOLERATED WELL. MEDICATION EDUCATION PROVIDED. PATIENT NEEDS REINFORCEMENT. WOUND CARE PROVIDED ON RIGHT HEEL. AREA CLEANED, PAT DRY, APPLIED BETADINE W/ GAUZE AND WRAPPED W/ KERLIX. AREA IS DARK PINK IN COLOR W/ NO OPENINGS OR DRAINAGE. SAFETY MEASURES IN PLACE. WILL CONTINUE TO MONITOR.
[2020-11-13 16:00] VITALS: BP 128/83
[2020-11-13] MEDS: MUPIROCIN CA NASAL 2% 1GM TUBE NS SCH (17:15)
[2020-11-13] MEDS: CHLORHEXADINE GLUC 2% CLOTH TP SCH (17:16)
--- NOTE | 2020-11-13 17:24 | NUR ---
ADMINISTERED PRESCRIBED MEDS PER MD ORDER. PATIENT TOLERATED WELL. MEDICATION EDUCATION REINFORCEMENT NEEDED, PATIENT APHASIC. PATIENT SHOWS NO SIGNS OF DISTRESS, IS AWAKE AND ALERT W/ TELEVISION ON. SAFETY MEASURES IN PLACE. WILL CONTINUE TO MONITOR.
--- NOTE | 2020-11-13 19:35 | NUR ---
BEDSIDE ENDORSEMENT PROVIDED TO NIGHTSHIFT NURSE FOR CONTINUITY OF CARE.
--- NOTE | 2020-11-13 19:36 | NUR ---
RECEIVED BEDSIDE ENDORSEMENT FROM AM SHIFT RN. PT IS AWAKE, ALERT, NON VERBAL, HAS RIGHT EYE BLINDNESS, ON ROOM AIR, GT INFUSING, IVF INFUSING, SEIZURE PROTECTION IN PLACE, CONTACT ISO OBSERVE, SAFETY MEASURES IN PLACE, PLAN OF CARE DISCUSSED, CALL LIGHT WITHIN REACH.
[2020-11-13 20:00] VITALS: BP 120/82
[2020-11-13] MEDS: ERTAPENEM SODIUM 1,000 MG in NACL 0.9% 50 ML IV SCH (20:23)
--- NOTE | 2020-11-13 20:42 | NUR ---
HOB ELEVATED, CHECKED GT PLACEMENT, IN PLACE, DUE MEDS GIVEN ORDERED, TOLERATED WELL, NO A/R NOTED, KEPT COMFORTABLE, CALL LIGHT WITHIN REACH.
--- NOTE | 2020-11-13 23:00 | NUR ---
PERINEAL CARE RENDERED, REPOSITIONED, KEPT COMFORTABLE, CALL LIGHT WITHIN REACH.
[2020-11-14] VITALS: BP 105/72
[2020-11-14] MEDS: HYDRAGUARD CREAM TP SCH ×2 (00:57→13:47)
--- NOTE | 2020-11-14 02:45 | NUR ---
GT FEEDING FINISHED, REPLACED IT W/ NEPHRO ORDERED, TOLERATED WELL W/ NO RESIDUAL, HOB ELEVATED WHILE FEEDING IS ON, KEPT COMFORTABLE, CALL LIGHT WITHIN REACH.
[2020-11-14 04:00] VITALS: BP 99/63
[2020-11-14] MEDS: DEXTROSE 5% 1,000 ML IV SCH (06:16)
[2020-11-14 06:20] LABS: ANION GAP 12.7 (8-16); CARBON DIOXIDE 21.6 mmol/L (21-32); CREATININE 1.1 mg/dL (0.6-1.3); POTASSIUM 3.3 mmol/L (3.5-5.1)
--- NOTE | 2020-11-14 06:30 | NUR ---
IVF FINISHED, REPLACED A NEW BAG.
[2020-11-14 06:53] LABS: HEMATOCRIT 28.9 % (36-52); HEMOGLOBIN 9.4 g/dL (12.0-18.0); MEAN CORPUSCULAR HEMOGLOBIN 27 pg (27-31); MEAN CORPUSCULAR HGB CONC 33 g/dL (33-37); MEAN CORPUSCULAR VOLUME 83.1 fL (80-94); PLATELET COUNT (AUTO) 184 K/uL (140-450); RED BLOOD CELL COUNT(AUTO) 3.48 MIL/uL (4.20-6.10); RED CELL DISTRIBUTION WIDTH 15.1 % (11.6-13.7); WHITE BLOOD COUNT (AUTO) 7.9 K/uL (4.8-10.8)
--- NOTE | 2020-11-14 07:35 | NUR ---
PT IS STABLE, NO DISTRESS, ALL NEEDS ATTENDED, KEPT COMFORTABLE, BEDSIDE ENDORSEMENT GIVEN TO AM SHIFT RN.
--- NOTE | 2020-11-14 07:37 | NUR ---
RECEIVED BEDSIDE REPORT FROM SEWAGE SCREEN OPERATOR RN FOR CONTINUITY OF CARE. PT IS AWAKE, ALERT, NON VERBAL, HAS RIGHT EYE BLINDNESS. RESPIRATIONS EVEN AND UNLABORED. ON ROOM AIR AND NO DISTRESS NOTED. SKIN IS WARM AND DRY. NOTED PRESSURE ULCER ON RIGHT HEEL. REINFORCED WITH DRESSING. NO DRAINAGE NOTED. GT IN PLACE, INFUSING NEPRO @40 ML/HR WITH H2O FLUSH @200 Q4H. NO RESIDUALS. HAS IV ON RIGHT FOOT 22G INFUSING FLUIDS WELL AND LEFT FOOT 20G SALINE LOCKED. ABDOMEN SOFT, FLAT, AND NON-DISTENDED. BOWEL SOUNDS ACTIVE IN ALL 4 QUADRANTS. PLAN OF CARE DISCUSSED. SEIZURE PROTECTION IN PLACE, CONTACT ISO OBSERVE, SAFETY MEASURES IN PLACE, CALL LIGHT WITHIN REACH. WILL CONTINUE TO MONITOR.
[2020-11-14 08:00] VITALS: BP 98/58
[2020-11-14 08:33] LABS: LYMPHOCYTES % (MANUAL) 20 % (20-46)
[2020-11-14 08:34] LABS: EOSINOPHILS % (MANUAL) 5 % (0-4); MONOCYTES % (MANUAL) 2 % (5-12); MYELOCYTES % 1 % (0-0)
[2020-11-14] MEDS ORDERED: INV1I IV ×2 (08:58→11:46)
[2020-11-14] MEDS ORDERED: HEPA500056 SUBQ (08:58)
[2020-11-14] MEDS: chlorproMAZINE 25 MG TAB GT SCH ×2 (09:18→13:49)
[2020-11-14] MEDS: levETIRAcetam 100 MG/ML ORASYR GT SCH (09:18)
[2020-11-14] MEDS: ASCORBIC ACID 500 MG/5 ML ORASYR GT SCH (09:18)
--- NOTE | 2020-11-14 09:20 | NUR ---
ALL SCHEDULED MEDS GIVEN. PT IS STABLE. NO DISTRESS NOTED. WILL CONTINUE TO MONITOR.
--- NOTE | 2020-11-14 11:08 | NUR ---
@0950 HRS: CONTACTED [facility], SPOKE WITH CRISTIAN, PT IS GOING TO ROOM 10-B. CALLED WITH [facility], SPOKE WITH DORENE AND REQUESTED TO FAX PT'S CLINICALS. @1100 HRS: PER DORENE, [facility] ETA BETWEEN 2-3 PM. RN BERTO HAMLIN MADE AWARE.
--- NOTE | 2020-11-14 11:09 | NUR ---
11/14/20 RD FOLLOW UP COMPLETED PLEASE REFER TO NUTRITION ASSESSMENT UNDER CARE ACTIVITY FOR ESTIMATED NUTRITIONAL NEEDS. 1. CONTINUE NEPRO 1.8 @ 40 ML/HR. START AT 20 ML/HR AND INCREASE TO 40 AFTER 2 HR 2. FREE WATER FLUSH OF 150 ML Q4H PER ARTIFICIAL TEETH INSPECTOR 3. CONTINUE VITAMIN C [address] TO FOLLOW-UP 2-3 DAYS, HIGH RISK YESSENIA FANG, RD
--- NOTE | 2020-11-14 11:10 | NUR ---
WAS NOTIFIED BY CHARGE NURSE THAT PATIENT WILL BE TRANSPORTED BY [facility] BETWEEN 1400 AND 1500.
[2020-11-14] MEDS ORDERED: HEPA500056 SQ (11:47)
[2020-11-14 12:00] VITALS: BP 126/76
[2020-11-14] MEDS ORDERED: POTASSIUM CHLORIDE 20% 40 MEQ/15 ML UDC GT SCH (12:00)
[2020-11-14 13:01] VITALS: BP 126/76
--- NOTE | 2020-11-14 13:10 | NUR ---
DRESSING ON RIGHT HEEL CHANGED. REINFORCED WITH NEW DRESSING PER WOUND CARE NURSE INSTRUCTIONS.
--- NOTE | 2020-11-14 13:30 | NUR ---
[place] [facility] [place] TO BLANK HANNAH. NOTIFIED HER THAT [place] [facility] [place]WITH [facility] BETWEEN [address] PALAFOX WILL BE THE ATTENDING DR FOR PATIENT.
[2020-11-14] MEDS: GAUZE TP SCH (13:47)
--- NOTE | 2020-11-14 14:00 | NUR ---
ALL SCHEDULED MEDS GIVEN. PT IS STABLE. NO DISTRESS NOTED.
--- NOTE | 2020-11-14 16:27 | NUR ---
PATIENT PICKED UP BY [facility] AND [place] [facility] [place]B UNDER DR. PALAFOX. PATIENT LEFT WITH IV ON RIGHT FOOT 22G AND LEFT FOOT 20G AND A LOPEZ CATH IN PLACE. ID [email or web address] WAS REMOVED. PT WAS STABLE PRIOR TO DISCHARGE.
== END 2020-11-14 16:48 | DRG 720 ==
LOC: MED 18:40 → MTU 21:03
PROVIDERS: ADMIT Internal Medicine; ATTEND Internal Medicine
DX: A41.9 Sepsis, unspecified organism (principal); E43 Unspecified severe protein-calorie malnutrition; G93.41 Metabolic encephalopathy; N17.9 Acute kidney failure, unspecified; L89.159 Pressure ulcer of sacral region, unspecified stage; E86.0 Dehydration; T83.511A Infection and inflammatory reaction due to indwelling urethral catheter, initial encounter; E87.0 Hyperosmolality and hypernatremia; N39.0 Urinary tract infection, site not specified; G40.909 Epilepsy, unspecified, not intractable, without status epilepticus; Z16.12 Extended spectrum beta lactamase (ESBL) resistance; N18.9 Chronic kidney disease, unspecified; R13.10 Dysphagia, unspecified; N20.0 Calculus of kidney; Y84.6 Urinary catheterization as the cause of abnormal reaction of the patient, or of later complication, without mention of misadventure at the time of the procedure; L89.619 Pressure ulcer of right heel, unspecified stage; B96.1 Klebsiella pneumoniae [K. pneumoniae] as the cause of diseases classified elsewhere; Z87.820 Personal history of traumatic brain injury; Z93.1 Gastrostomy status; Z87.442 Personal history of urinary calculi; Y92.89 Other specified places as the place of occurrence of the external cause; Z20.822 Contact with and (suspected) exposure to COVID-19; Z68.1 Body mass index [BMI] 19.9 or less, adult
CPT/HCPCS: 36415; 51702; 70450; 71045; 74150; 76770; 80048; 80053; 80305; 81001; 82550; 82553; 83605; 83735; 83880; 84100; 84484; 85025; 85610; 85730; 87040; 87081; 87086; 93005; 96361; 96365; 99291; G0480; J0696; J1335; J1644; J3475; J7060; J7131